=== PATIENT | male | born 1950 | race Caucasian/White ===

== ENCOUNTER 2016-10-27 10:08 | Inpatient (IN) | payer OTHER ==
[~2016-10-27] VITALS: Ht 177.8 cm; Wt 169.6 kg
[~2016-10-27 10:08] MED LIST: AMLODIPINE BESY10 M1 PO; AMLODIPINE BESYL5 M1 PO; ASPIRIN EC81 M1 PO; CARVEDILOL25 M1 PO; CEFUROXIME500 MG PO; FUROSEMIDE40 M1 PO; HYDRALAZINE HC100 M1 PO; HYDRALAZINE HCL25 M1 PO; KEPPRA1000 M1 PO; LASIX40 M1 PO; LISINOPRIL40 M1 PO; NITROGLYCERIN1 EACH TOP; PREDNISONE10 M2 PO; SIMVASTATIN20 M2 PO
--- NOTE | 2016-10-27 10:13 | ED DYSPNEA/ASTHMA COMPLAINT ---
History of Present Illness General Chief Complaint: Dyspnea (COPD, CHF, Other) Stated Complaint: BIBA SOB Source: patient, old records, EMS Exam Limitations: no limitations Allergies Coded Allergies: NO KNOWN ALLERGIES (06/26/16) Reconcile Medications Aspirin (Ecotrin*) 81 MG TABLET.DR 1 TAB PO DAILY HEART HEALTH (Reported) Furosemide 40 MG TABLET 1 TAB PO BID DIURETIC (Reported) Hydralazine HCl 25 MG TABLET 1 TAB PO TID Elevated BP Levetiracetam (Keppra) 1,000 MG TABLET 1 TAB PO BID Seizure Prophylaxis Please take this medication for seizure prophylaxis. You will need to follow up with the neurlogist regarding termite helper use of this medication. Lisinopril 40 MG TABLET 1 TAB PO DAILY HEART (Reported) Nitroglycerin (Nitroglycerin Patch) 1 EACH PATCH.TD24 0.4 MG TOP DAILY HEART (Reported) Potassium Chloride 20 MEQ TAB.ER.PRT 1 TAB PO BID SUPPLEMENT (Reported) Simvastatin (Simvastatin*) 20 MG TABLET 1 TAB PO QPM CHOLESTEROL (Reported) Triage Nurses Notes Reviewed? yes Onset: Abrupt Duration: day(s): (3), constant, getting worse Timing: recent history Severity: moderate, severe Activities at Onset: none Prior Episodes/Possible Cause: frequent episodes, chronic episodes Modifying Factors: Improves With: rest. Worsens With: movement. Associated Symptoms: cough, wheezing, weakness HPI: 66-year-old male with history of CHF, previous history of respiratory failure cardiac arrest 4 months ago seizures presents emergency room brought in by ambulance after the patient was found by his aide to have low O2 sats in the 60s on room air. The patient is not on oxygen at baseline. He states over the past 2-3 days he's had increased weakness shortness of breath at rest nonproductive cough. Patient also reports to bloating in his abdomen and urinary retention. He denies chest pain palpitations dizziness lightheadedness. He has not sought care for the symptoms until today. He has been compliant with all his medications. No fever no chills. He states that his leg swelling is chronic (ANG MACHADO) Vital Signs & Intake/Output Vital Signs & Intake/Output Vital Signs Date Time Temp Pulse Resp B/P Pulse O2 O2 Flow FiO2 Ox Delivery Rate 10/27 1441 96.2 45 26 171/72 98 BIPAP 60% 10/27 1405 70 100 10/27 1351 96.8 46 20 159/72 99 BIPAP 60% 10/27 1259 96.7 40 23 146/66 99 BIPAP 70% 10/27 1151 36 22 183/79 97 BIPAP 70% 10/27 1123 99 Non ReBreather 10/27 1122 60 99 10/27 1112 41 25 179/81 100 Non 100% ReBreather 10/27 1016 97.3 49 18 186/85 66 Room Air 10/27 1015 97 BIPAP 70% Past History Travel History Traveled to [place] past 21 day No Medical History Any Pertinent Medical History? 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 No (ANG MACHADO) Review of Systems Review of Systems Constitutional: Reports: see HPI. All Other Systems: Reviewed and Negative Comments Review of systems: See HPI, All other systems negative. Constitutional, no chills no fever, malaise HEENT:no sore throat no congestion Cardiovascular: No chest pain , no palpitation Skin,no rashes, no change in skin Respiratory: dyspnea no cough no sputum GI: No nausea no vomiting, no diarrhea : No dysuria No hematuria, no frequency, no discharge Muscle skeletal: No joint pain, no joint swelling, no back pain, no neck pain, Neurologic: No numbness no confusion, no headache Psych: No stress Heme/endocrine: No bruising no bleeding Immunology: No lymphadenopathy (ANG MACHADO) Physical Exam Physical Exam General Appearance: well developed/nourished, no apparent distress, alert, awake Respiratory: chest non-tender, quiet respiration, respiratory distress Comments: Well-developed well-nourished person in no acute distress HEENT: Normal EENT exam; PERRL, EOMI, HEAD is atraumatic. moist mucous membranes. Neck: Supple, normal range of motion Back: Nontender, no CVA tenderness. Full range of motion Cardiovascular: Regular rate and rhythms no murmurs rubs Respiratory: Chest nontender.There were no bony deformities, no asymmetry. Mild -to-moderate respiratory distress. Patient speaking in full complete sentences. Decreased breath sounds bilaterally rhonchorous lung sounds Abdomen: Soft, nontender nondistended, no appreciable organomegaly. Normal bowel sounds. No rebound/guarding, Extremity: Bilateral pitting 4+ edema to the lower extremities full range of motion of extremities, normal and equal pulses bilaterally, 5 out of 5 strength noted to bilateral upper and lower extremities Neuro: Alert oriented x3, motor sensory normal, . There were no obvious focal neurologic abnormalities. Skin: No appreciable rash on exposed skin, skin is warm and dry. Psych: Mood and affect is normal, memory and judgment is normal. Core Measures ACS in differential dx? Yes Severe Sepsis Present: No Septic Shock Present: No (ÓSCAR ALVAREZ,ANG) Progress Differential Diagnosis: asthma, AMI, bronchitis, costochondritis, CHF, COPD, pericarditis, pulmonary embolism, pneumonia, pneumothorax, unstable angina Diagnostic Imaging: Viewed by Me: Radiology Read. Discussed w/RAD: Radiology Read. Radiology Impression: PATIENT: PHONG BRIAN PRESENT AGE: 66 PATIENT ACCOUNT NO: [id number] : 51 LOCATION: [facility] ORDERING PHYSICIAN: ANG ALVAREZ SERVICE DATE: 10/27/16 EXAM TYPE: RAD - XRY-PORTABLE CHEST XRAY EXAMINATION: XR PORTABLE CHEST CLINICAL INFORMATION: Dyspnea. COMPARISON: CXR from 06/30/2016 and 07/04/2016 TECHNIQUE: Portable AP view of the chest was obtained. FINDINGS: Lung bases are poorly evaluated due to patient's obese body habitus. Lungs are slightly hypoinflated. The bibasilar opacity could reflect presence of atelectasis and/or infiltrates. Cardiac silhouette is chronically enlarged and central pulmonary vessels are prominent but similar in size compared to 06/30/2016. There is no overt interstitial edema. No overt pleural effusion. The visualized bones are intact. IMPRESSION: 1. Cardiomegaly and pulmonary vascular congestion without acute interstitial edema. 2. Lower lobes are suboptimally evaluated due to patient's obese body habitus. The hazy opacities at the bases could reflect presence of atelectasis and/or infiltrates. DICTATED BY: ELIJAH BUENO MD DATE/TIME DICTATED:10/27/161099 DIESEL ENGINE MECHANIC:ELIA DATE/TIME TRANSCRIBED:1099 CONFIDENTIAL, DO NOT COPY WITHOUT APPROPRIATE AUTHORIZATION. < Electronically signed in Other Vendor System> SIGNED BY: ELIJAH BUENO MD 10/27/16 1108 Initial ED EKG: SINUS BRADYCARDIA AT 50, LEFT BUNDLE BRANCH BLOCK, FIRST-DEGREE av BLOCK Prior EKG: unchanged (06/2016) Rhythm Strip: sinus bradycardia (ANG MACHADO) Plan of Care: Orders Procedure Date/time Status BASIC ELECTROLYTES PLUS BUN&CR 10/28 0600 Active EKG 10/28 UNK Active Heart Healthy Diet 10/27 L Active VRE ACTIVE SURVIELLANCE 10/27 1451 Active ACTIVE SURVEILLANCE NARES 10/27 1451 Active Pathway - chart 10/27 1446 Active Pathway - chart 10/27 1445 Active House Staff 10/27 1445 Active Code Status 10/27 1445 Active BIPAP 10/27 1405 Active Admit to inpatient 10/27 1318 Active Patient Data 10/[address] CHEST WO IV CONTRAST 10/27 1300 Active Intake & Output 10/27 1152 Active BIPAP 10/27 1121 Active Forte, Insertion/Removal/Asses 10/27 1109 Active CULTURE,URINE 10/27 1109 Active MIXED VENOUS BLOOD GAS (GEN) 10/27 1040 Complete PROTHROMBIN TIME 10/27 1028 Complete LACTIC ACID 10/27 1028 Complete Telemetry/Sanding Machine Tender 10/27 1027 Active BLOOD CULTURE 10/27 1027 Active TROPONIN LEVEL 10/27 1027 Complete MAGNESIUM 10/27 1027 Complete COMPREHENSIVE METABOLIC PANEL 10/27 1027 Complete CBC WITHOUT DIFFERENTIAL 10/27 1027 Complete B-TYPE NATRIURETIC PEP (BNP) 10/27 1027 Complete EKG 10/27 1010 Active TRC EVALUATION (GEN) 10/27 UNK Active Weight 10/27 UNK Active VTE Mechanical Prophylaxis 10/27 UNK Active Vital Signs 10/27 UNK Active EKG 10/27 UNK Active Current Medications Sig/Ji Start time Last Medication Dose Stop Time Status Admin Furosemide 40 MG BID 10/27 2200 CAN (Lasix) Heparin Sodium 5,000 UNIT Q8 10/27 2200 AC (Porcine) Acetaminophen 650 MG Q8P PRN 10/27 1500 AC (Tylenol) Laboratory Tests 10/27/16 1328: Lactic Acid Cancelled 10/27/16 1105: Lactic Acid 1.0 10/27/16 1105: Anion Gap 10, Estimated GFR > 60, BUN/Creatinine Ratio 35.6 H, Glucose 130 H, Calcium 8.6, Magnesium 2.6 H, Total Bilirubin 1.5 H, AST 35, ALT 56, Alkaline Phosphatase 55, Troponin I 0.12 *H, Ida-V-Trcekflvowj Pept 2860 H, Total Protein 8.0, Albumin 4.0, Globulin 4.0, Albumin/Globulin Ratio 1.0 L, PT 13.9 H, INR 1.33 H, CBC w Diff NO MAN DIFF REQ, RBC 5.35, MCV 94.1 H, MCH 30.8, RDW 17.0 H, MPV 9.5, Gran % 75.5 H, Lymphocytes % 14.3 L, Monocytes % 7.3, Eosinophils % 2.1, Basophils % 0.8, Absolute Granulocytes 7.2 H, Absolute Lymphocytes 1.4, Absolute Monocytes 0.7 H, Absolute Eosinophils 0.2, Absolute Basophils 0.1, PUBS MCHC 32.7 L 10/27/16 1050: Bicarbonate Actual 31 H, Mixed VBG pH 7.17 L, Mixed VBG pCO2 86 H, Mixed VBG O2 Saturation 31 L, Carboxyhemoglobin 2.6, O2 Concentration % 100%, O2 Delivery Method NRB, Phlebotomy Draw Site LEFT RADIAL Microbiology 10/27 1451 UPPER RESP: Surveillance Culture - ORD 10/27 1451 GI: Surveillance Culture - ORD 10/27 1151 URINE ROUT: Urine Culture - RECD 10/27 1105 BLOOD: Blood Culture - RECD 10/27 1040 BLOOD: Blood Culture - RECD Labs ordered old records reviewed x-ray ordered patient placed on nonrebreather DuoNeb ordered 10/27/2016 10:40:[address] Mane in to evaluate patient agrees with plan Patient saturating well improved on BiPAP, discussed with patient and his LAB results his troponin is baseline need for admission chair in agreement with Dr. 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 Mane spoke with Dr. ugarte will admit to the ICU (ANG MACHADO) Comments: 10/27/2016 11:48:24 AM Phong appears more comfortable and has a 99% oxygen saturation on a BiPAP mask. his chest excursion has improved. He already has a nitroglycerin patch in place and we treated with Lasix for congestive heart failure. Patient to be admitted to the intensive care unit given the acidosis on what appears to be a venous blood gas. (FIORELLA HENDRICKSON,SHANTANU Simmons) Departure Departure Condition: Stable Clinical Impression Primary Impression: Respiratory failure Qualifiers: Chronicity: acute on chronic Respiratory failure complication: hypoxia Qualified Code: J96.21 - Acute and chronic respiratory failure with hypoxia Secondary Impressions: Acute exacerbation of CHF (congestive heart failure), Elevated troponin Referrals: MINNA SAVAGE MD (PCP/Family) Departure Forms: Customer Survey General Discharge Information Admission Note Spoke With: Toby NARAYAN MD Documentation of Exam: Documentation of any treatments & extenuating circumstances including Concerns Regarding Discharge (functional status, medication knowledge or non-compliance, living conditions, etc.) that warrant an admission rather than observation: (AGN MACHADO) Departure Disposition: STILL A PATIENT Admission Note Documentation of Exam: Documentation of any treatments & extenuating circumstances including Concerns Regarding Discharge (functional status, medication knowledge or non-compliance, living conditions, etc.) that warrant an admission rather than observation: Patient presents hypoxic with worsening dyspnea. He now requires support with BiPAP and significant oxygen supplementation to maintain normal oxygen saturations. He is morbidly obese and has a history of congestive heart failure. This places him at very high risk of hypercapnic respiratory failure, somnolence, altered mental status, respiratory arrest and . I do not feel this patient can be treated as an outpatient safely and instead that he be treated in the hospital with continued BiPAP and oxygen supplementation. Continuous pulse oximetry should be obtained and oxygen and BiPAP adjusted accordingly. Pulmonary and cardiology consultation should be considered. Given this patient's critical condition and need for higher level care, I feel he should be admitted to the intensive care unit. Repeat ABG should be obtained for assessment of PaO2 and PCO2. Patient's medications should also be reviewed and adjusted to optimize medical management. I feel he will require a multiple day hospitalization. PA/DICTATING TRANSCRIBING MACHINE SERVICER Co-Sign Statement Statement: ED Attending supervision documentation- [X] I saw and evaluated the patient. I have also reviewed all the pertinent lab results and diagnostic results. I agree with the findings and the plan of care as documented in the PA's/DICTATING TRANSCRIBING MACHINE SERVICER's documentation. Dyspnea with history of CHF in June. No increase in leg edema recently. Presents hypoxic and requiring high flow oxygen to support normal O2 saturations. Chronic skin changes bilaterally to the lower extremities with 1-2+ pitting edema. [] I have reviewed the ED Record and agree with the PA's/DICTATING TRANSCRIBING MACHINE SERVICER's documentation. [] Additions or exceptions (if any) to the PAs/DICTATING TRANSCRIBING MACHINE SERVICER's note and plan are summarized below: [] (FIORELLA HENDRICKSON,SHANTANU Simmons) Critical Care Note Critical Care Note Critical Care Time: 30-74 min (ANG MACHADO)
--- NOTE | 2016-10-27 11:08 | RADIOLOGY REPORT ---
EXAMINATION: XR PORTABLE CHEST CLINICAL INFORMATION: Dyspnea. COMPARISON: CXR from 06/30/2016 and 07/04/2016 TECHNIQUE: Portable AP view of the chest was obtained. FINDINGS: Lung bases are poorly evaluated due to patient's obese body habitus. Lungs are slightly hypoinflated. The bibasilar opacity could reflect presence of atelectasis and/or infiltrates. Cardiac silhouette is chronically enlarged and central pulmonary vessels are prominent but similar in size compared to 06/30/2016. There is no overt interstitial edema. No overt pleural effusion. The visualized bones are intact. IMPRESSION: 1. Cardiomegaly and pulmonary vascular congestion without acute interstitial edema. 2. Lower lobes are suboptimally evaluated due to patient's obese body habitus. The hazy opacities at the bases could reflect presence of atelectasis and/or infiltrates.
[2016-10-27 11:17] LABS: ABSOLUTE BASOPHIL COUNT 0.1 /CUMM (0.0-0.2); ABSOLUTE EOSINOPHIL COUNT 0.2 /CUMM (0.0-0.7); ABSOLUTE GRANULOCYTE CT 7.2 /CUMM (1.4-6.5); ABSOLUTE LYMPH COUNT 1.4 /CUMM (1.2-3.4); ABSOLUTE MONOCYTE COUNT 0.7 /CUMM (0.10-0.60); BASOPHIL % 0.8 % (0.0-2.0); EOSINOPHIL % 2.1 % (0-5); GRANULOCYTE % 75.5 % (42.2-75.2); HEMATOCRIT 50.3 % (42-52); MEAN CORPUSCULAR HGB 30.8 PG (27.0-31.0); MEAN CORPUSCULAR HGB CONC 32.7 G/DL (33.0-37.0); MEAN CORPUSCULAR VOLUME 94.1 FL (80.0-94.0); MEAN PLATELET VOLUME 9.5 FL (7.4-10.4); PLATELET COUNT 141 /CUMM (130-400); RED BLOOD CELL CT 5.35 /CUMM (4.70-6.10); WHITE BLOOD CELL COUNT 9.5 /CUMM (4.8-10.8)
[2016-10-27 11:23] LABS: PT 13.9 SEC (9.4-12.5)
[2016-10-27] MEDS ORDERED: POTASSIUM CHLO20 ME2 PO (12:54)
--- NOTE | 2016-10-27 13:17 | History & Physical ---
CIPRIANO HENDRICKSON,[facility] 10/27/16 1317: General Information and HPI MD Statement: I have seen and personally examined LISA BRIAN and documented this H&P. The patient is a 66 year old M who presented with a patient stated chief complaint of [shortness of breath and low oxygen level]. Source of Information: patient, family History of Present Illness: Patient is a 66 year old gentleman with PMH of HTN, HLD, diastolic HF, COPD, DAGOBERTO , cardiac arrest during a recent admission at [facility] in Jun 2016, who was brought in to the ED after the patient was found to have 'blue fingers' and low oxygen levels by the visiting nurse. His reports that the patient has been having trouble breathing since yesterday and reports increased SOB on ambulation for a few days. Patient also has been unable to lay flat as it would increase SOB. Reports dizziness especially this morning. Denies any chest pain, palpitation, headache. Denies increase in lower extremity edema but reports skin tears that are new. Denies fever, chills, recent sick contacts, reports chronic coughing with white phlegm. Patient was admitted to in Jun 2016 with CHF exacerbation and hypercarbic respiratory failure. According to the records he had cardiac arrest during the admission and was resuscitated. Patient has been following up with Dr. Wakefield, he has completed a 24h holter monitor 4-5 days ago and is a candidate for a pacemaker. He has been bradycardic to 30-40 since the previous admission according to to his . She also reports he has DAGOBERTO and has done sleep studies recently and is waiting to receive his device. Allergies/Medications Allergies: Coded Allergies: NO KNOWN ALLERGIES (06/26/16) Home Med list Aspirin (Ecotrin*) 81 MG TABLET.DR 1 TAB PO DAILY HEART HEALTH (Reported) Furosemide 40 MG TABLET 1 TAB PO BID DIURETIC (Reported) Hydralazine HCl 25 MG TABLET 1 TAB PO TID Elevated BP Levetiracetam (Keppra) 1,000 MG TABLET 1 TAB PO BID Seizure Prophylaxis Please take this medication for seizure prophylaxis. You will need to follow up with the neurlogist regarding care home use of this medication. Lisinopril 40 MG TABLET 1 TAB PO DAILY HEART (Reported) Nitroglycerin (Nitroglycerin Patch) 1 EACH PATCH.TD24 0.4 MG TOP DAILY HEART (Reported) Potassium Chloride 20 MEQ TAB.ER.PRT 1 TAB PO BID SUPPLEMENT (Reported) Simvastatin (Simvastatin*) 20 MG TABLET 1 TAB PO QPM CHOLESTEROL (Reported) Past History Travel History Traveled to [place] past 21 day No Medical History Neurological: NONE EENT: NONE Cardiovascular: CHF, hypertension, hyperlipidemia Respiratory: NONE Gastrointestinal: NONE Hepatic: NONE Renal: NONE Musculoskeletal: BLISTERING WOUNDS BLE ARTHRITIS Psychiatric: NONE Endocrine: NONE Blood Disorders: NONE Cancer(s): NONE 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 Needs Assist: bathing. Ambulation: walker IADLs Independent: food prep. Needs Assist: shopping, housework, finances, telephone, transportation, medication admin. Review of Systems Review of Systems Constitutional: Reports: weakness. Denies: chills, fever. EENTM: Reports: no symptoms. Cardiovascular: Reports: peripheral edema. Denies: chest pain, palpitations, syncope. Respiratory: Reports: cough, orthopnea, short of breath, sputum production (white). Denies: hemoptysis. GI: Reports: constipation, diarrhea. Denies: abdominal pain. Genitourinary: Reports: no symptoms. Musculoskeletal: Reports: no symptoms. Skin: Reports: lesions. Neurological/Psychological: Reports: no symptoms. Hematologic/Endocrine: Reports: no symptoms. Exam & Diagnostic Data Last 24 Hrs of Vital Signs/I&O Vital Signs Date Time Temp Pulse Resp B/P Pulse O2 O2 Flow FiO2 Ox Delivery Rate 10/27 2141 97.8 51 31 153/67 10/27 1953 93 BIPAP 50% 10/27 1935 BIPAP 50% 10/27 1924 38 94 10/27 1744 42 146/69 10/27 1600 45 96 10/27 1600 97.0 45 36 172/80 96 BIPAP 50% 10/27 1600 96 BIPAP 60% 10/27 1441 96.2 45 26 171/72 98 BIPAP 60% 10/27 1405 70 100 10/27 1351 96.8 46 20 159/72 99 BIPAP 60% 10/27 1259 96.7 40 23 146/66 99 BIPAP 70% 10/27 1151 36 22 183/79 97 BIPAP 70% 10/27 1123 99 Non ReBreather 10/27 1122 60 99 10/27 1112 41 25 179/81 100 Non 100% ReBreather 10/27 1016 97.3 49 18 186/85 66 Room Air 10/27 1015 97 BIPAP 70% Intake & Output 10/27 1600 10/27 0800 10/27 0000 Intake Total Output Total 1200 Balance -1200 Output, Urine 1200 Patient 176.901 kg Weight Physical Exam General Appearance Alert, Oriented X3, Moderate Distress Skin skin hyperpigmentationand hyperkeratosis due to venous stasis on both lower legs with areas of skin tear (stage 1 - one small 0.5x0.5 on the posterior right lower leg, 2 larger areas of skin tear on the anterior left lower leg) HEENT Atraumatic, EOMI, Mucous Membr. moist/pink, on Bipap, erythema of the skin of the face Neck Supple Cardiovascular Regular Rate, No Murmurs, distant heart sounds Lungs decreased breath sounds, scattered rhonchi, no wheezing Abdomen Soft, No Tenderness, obese Neurological Normal Speech, Strength at 5/5 X4 Ext, Normal Tone Extremities 4+ pitting edema on lower extremities Vascular peripheral pulses hard to palpate due to obesity and 4+ lower extremity edema, capillary refill intact Last 24 Hrs of Labs/Heriberto: Laboratory Tests 10/27/16 1830: pH 7.30 *L, pCO2 60 *H, pO2 101 H, HCO3 28, ABG O2 Sat (Measured) 95.0 L, P-50 (Temp Corrected) N, Carboxyhemoglobin 1.5, O2 Concentration % 50%, Temperature 97.0, Respiration Rate 30, O2 Delivery Method FFM, Vent Mode ST, Expiratory Pressure 8, Inspiratory Pressure 22, Phlebotomy Draw Site RIGHT RADIAL 10/27/16 1800: Troponin I 0.12 *H 10/27/16 1635: pH 7.26 *L, pCO2 68 *H, pO2 86, HCO3 30 H, ABG O2 Sat (Measured) 93.0 L, P-50 (Temp Corrected) N, Carboxyhemoglobin 1.9, O2 Concentration % 50%, Temperature 97.0, Respiration Rate 26, O2 Delivery Method FFM, Vent Mode ST, Expiratory Pressure 8, Inspiratory Pressure 20, Phlebotomy Draw Site RIGHT BRACHIAL 10/27/16 1328: Lactic Acid Cancelled 10/27/16 1105: Lactic Acid 1.0 10/27/16 1105: Anion Gap 10, Estimated GFR > 60, BUN/Creatinine Ratio 35.6 H, Glucose 130 H, Calcium 8.6, Magnesium 2.6 H, Total Bilirubin 1.5 H, AST 35, ALT 56, Alkaline Phosphatase 55, Troponin I 0.12 *H, Pmb-H-Hwvkkozcsih Pept 2860 H, Total Protein 8.0, Albumin 4.0, Globulin 4.0, Albumin/Globulin Ratio 1.0 L, PT 13.9 H, INR 1.33 H, CBC w Diff NO MAN DIFF REQ, RBC 5.35, MCV 94.1 H, MCH 30.8, RDW 17.0 H, MPV 9.5, Gran % 75.5 H, Lymphocytes % 14.3 L, Monocytes % 7.3, Eosinophils % 2.1, Basophils % 0.8, Absolute Granulocytes 7.2 H, Absolute Lymphocytes 1.4, Absolute Monocytes 0.7 H, Absolute Eosinophils 0.2, Absolute Basophils 0.1, PUBS MCHC 32.7 L 10/27/16 1050: Bicarbonate Actual 31 H, Mixed VBG pH 7.17 L, Mixed VBG pCO2 86 H, Mixed VBG O2 Saturation 31 L, Carboxyhemoglobin 2.6, O2 Concentration % 100%, O2 Delivery Method NRB, Phlebotomy Draw Site LEFT RADIAL Microbiology 10/27 1550 GI: Surveillance Culture - RECD 10/27 1545 UPPER RESP: Surveillance Culture - RECD 10/27 1151 URINE ROUT: Urine Culture - RECD 10/27 1105 BLOOD: Blood Culture - RECD 10/27 1040 BLOOD: Blood Culture - RECD Diagnostic Data EKG Results complete heart block CXR Results SERVICE DATE: 10/27/16 EXAM TYPE: RAD - XRY-PORTABLE CHEST XRAY EXAMINATION: XR PORTABLE CHEST CLINICAL INFORMATION: Dyspnea. COMPARISON: CXR from 06/30/2016 and 07/04/2016 TECHNIQUE: Portable AP view of the chest was obtained. FINDINGS: Lung bases are poorly evaluated due to patient's obese body habitus. Lungs are slightly hypoinflated. The bibasilar opacity could reflect presence of atelectasis and/or infiltrates. Cardiac silhouette is chronically enlarged and central pulmonary vessels are prominent but similar in size compared to 06/30/2016. There is no overt interstitial edema. No overt pleural effusion. The visualized bones are intact. IMPRESSION: 1. Cardiomegaly and pulmonary vascular congestion without acute interstitial edema. 2. Lower lobes are suboptimally evaluated due to patient's obese body habitus. The hazy opacities at the bases could reflect presence of atelectasis and/or infiltrates. DICTATED BY: ELIJAH BUENO MD DATE/TIME DICTATED:10/27/161099 SANDFILL OPERATOR:ELIA DATE/TIME TRANSCRIBED:10/27/161099 Other Results SERVICE DATE: 10/27/16 EXAM TYPE: CAT - CT CHEST WO IV CONTRAST EXAMINATION: CT CHEST WITHOUT CONTRAST CLINICAL INFORMATION: Dyspnea. COMPARISON: Chest CT from 06/26/2016. CXR from 10/27/2016. TECHNIQUE: Multidetector volumetric CT imaging of the chest was performed. Axial MIP volume rendering provided. Sagittal and coronal reformatted images were obtained. 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 LUNGS AND PLEURA: Trachea and mainstem bronchi are normal in caliber. There are secretions layering along the posterior wall of the left mainstem bronchus. The pulmonary vessels are large and lungs have mosaic attenuation with heterogeneous groundglass opacity of both lungs. Interlobular septal thickening is present within upper lobes, most conspicuous at the apices, consistent with interstitial edema. There are goeuo-pt-vmuiexhz-sized, posteriorly layering pleural effusions. Compressive atelectasis is present within lower lobes and inferior lingula. MEDIASTINUM: Multichamber cardiac enlargement. Vrnb-xx-kzplsmiz atherosclerotic calcification of coronary arteries. Pulmonary arteries are prominent; the pulmonary artery trunk is 3.6 cm diameter. There is mild atherosclerotic calcification of the thoracic aorta. At the level of the right pulmonary artery, the dilated ascending thoracic aorta is 4.2 cm AP, 4.1 cm transverse diameter. No pericardial effusion. LYMPHATICS: No pathologic sized axillary lymph nodes. No bulky hilar lymphadenopathy observed on these noncontrast images. There is mild, shotty lymphadenopathy within the mediastinum. UPPER ABDOMEN: Gallbladder is surgically absent. The examined portions of the adrenal glands are normal. OSSEOUS STRUCTURES: Skeletal hyperostosis with extensive flowing anterior ligament ossification of the degenerated thoracic spine. No aggressive osseous lesions. IMPRESSION: 1. Congestive heart failure. Imaging findings include cardiomegaly, pulmonary vascular engorgement, interstitial edema and bilateral pleural effusions. 2. Compressive atelectasis of both lower lobes. 3. The ectatic ascending thoracic aorta measures 4.2 cm AP diameter. 4. Obesity. DICTATED BY: ELIJAH BUENO MD DATE/TIME DICTATED:10/27/161529 SANDFILL OPERATOR:ELIA Assessment/Plan Assessment: Patient is a 66 year old gentleman with PMH of HTN, HLD, diastolic HF, COPD, DAGOBERTO , cardiac arrest during a recent admission at [facility] in Jun 2016, who was brought in to the ED due to hypoxia, cyanosis, 2 days of SOB at rest and orthopnea. Patient is also bradycardic since the previous admission in June and is supposed to have a pacemaker placed. Problem list and plan: Acute hypoxic hypercarbic respiratory failure Patient has history of COPD, cough with phlegm, does not report increased coughing and change in the color of the sputum. exam reveals rhonchi, no wheezing. other possibility is CHF exacerbation. ProBNP elevated (although relatively lower than the previous measurement in June), also reports orthopnea, worsening SOB and increased LE edema and skin tear. ABG shows hypercarbia, respiratory acidosis CXR: hazy opacities at the bases of the lungs - may be due to pneumonia * ICU admit * monitor Vital signs and O2 suppl as needed to keep SO2>92% (currently requiring Bipap) * on Bipap, O2 suppl to keep SO2>92% * lasix 40 mg IV BID * IV vancomycin and ceftazidime * lower respiratory cultures * repeat ABG tonight Complete heart block EKG shows LBBB and Complete heart block * patient is a candidate for a pacemaker * will be kept on monitor and recommend to keep pads on the chest and defibrillator at bedside * consider atropine at bedside History of HTN, HLD, seizure disorder * continue home medications : keppra, statin, lisinopril Diet heart healthy diet DVT px heparin SC FULL CODE As Ranked By This Provider Problem List: 1. Elevated troponin 2. Acute exacerbation of CHF (congestive heart failure) 3. Respiratory failure Qualifiers Chronicity: acute on chronic Respiratory failure complication: hypoxia Qualified Code: J96.21 - Acute and chronic respiratory failure with hypoxia 4. COPD (chronic obstructive pulmonary disease) 5. Venous stasis ulcers 6. Diastolic heart failure Core Measures/Miscellaneous Acute Coronary Syndrome ACS Diagnosis: No Cerebrovascular Accident CVA/TIA Diagnosis: No Congestive Heart Failure CHF Diagnosis: Yes Date of most recent Echo: 06/28/16 Last Known EF %: 55 MARGARITO/ARB for EF <40%: Yes Venous Thromboembolism VTE Risk Factors: Acute medical illness, Age > 40 [facility] prophylaxis d/t: No contraindications No VTE Pharm Prophylaxis d/t: No contraindications VTE Diagnosis: No VTE Type: NONE VTE Confirmed by (Test): NONE Severe Sepsis Severe Sepsis Present: No Septic Shock Septic Shock Present: No Miscellaneous Documentation Attending Case Discussed With: Toby NARAYAN MD Primary Care Physician: MINNA SAVAGE MD Patient sees these Specialists Dr. Twyla Suazo Level of Patient Care: Critical Care (CRI) Toby NARAYAN MD 10/27/16 1454: Attending MD Review Statement Attending Statement Attending MD Statement: examined this patient, discuss w/resident/PA/BAD CREDIT COLLECTOR, agreed w/resident/PA/BAD CREDIT COLLECTOR, discussed with family, reviewed EMR data (avail), reviewed images, amended to note Attending Assessment/Plan: I have personally seen and examined the patient, and agree with the resident's assessment and plan as detailed above. The patient is a 66-year-old male with a past medical history significant for copd, bradycardia (awaiting PPM per patient 's ), hypertension, diastolic CHF, hyperlipidemia, osteoarthritis, obesity hypoventilation and obstructive sleep apnea. He has chronic lower extremity edema, ulcerations on lower extremities and chronic venous stasis. The patient also had an episode of seizures and respiratory failure in June, complicated by cardiac arrest requiring intubation and mechanical ventilation. The patient eventually improved and was transferred to acute rehabilitation. The patient was brought in by ambulance for hypoxia, noting the patient's oxygen saturations were in the 60s on room air. Over the past 2-3 days, the patient has had increased weakness and shortness of breath along with a nonproductive cough. He has had ongoing abdominal bloating with new urinary retention. The patient was found to be in respiratory failure and was placed on BIPAP. The patient had a chest x-ray that was nonspecific. He was given nitroglycerin and Lasix for possible CHF. He has been pancultured and will be placed on empiric antibiotics. The patient has been evaluated by cardiology and we will follow up the recommendations. The patient's total bilirubin was slightly elevated however he has no abdominal pain and we will not pursue further workup unless his clinical symptoms change. A CT scan of the chest has been ordered for further closer evaluation. I have discussed the plan of care with the housestaff and advised him to contact me should the patient's condition change or deteriorate. I've also discussed patient's condition and plan with his at the bedside. CASTILLO TIERNEY 10/27/16 1536: Resident Review Statement Resident Statement: agreed with accounting intern, discussed with family Other Findings: In an 66-year-old male with past medical history of HTN, stage I diastolic CHF, HDL, osteoarthritis came with a chief complaint of difficulty breathing. Per 5 present at bedside, patient has been increasingly short of breath, he wasn't able to sleep last night at all. He normally sleeps in the chair. Patient had a sleep study done 2 weeks ago and was working with insurance to get a BiPAP machine at home. This morning when the visiting nurse came, patient was desaturating to 60% and she noticed that his fingertips were little cyanosed. Patient came into ER. In ER VBG showed a pH of 7.1. Patient had no leukocytosis on admission. She has been afebrile. Patient is on 60% BiPAP in ER. Patient also had elevated troponins of 0.12 but does not complain of any chest pressure/pain or palpitations. Vitals stable in ER Respiratory sounds difficult to elicit due to body habitus. Assessment and plan We'll admit to critical care unit Will obtain the results of CAT scan to look for possible pneumonia TRC nebs as needed Start the patient on ceftazidime and vancomycin after panculture Troponins are elevated, will trend until they peak, follow-up EKG and troponin at 5 PM and 11 PM Cardiology consult service, Dr. Silva on board Pain pathway Tylenol every 8 when necessary DVT prophylaxis subcutaneous heparin Patient is full code
--- NOTE | 2016-10-27 13:36 | Cons- Cardiology ---
General Information and HPI Consulting Request Date of Consult: 10/27/16 Requested By: etienne ALVAREZ Reason for Consult: CHF; Bradycardia Source of Information: family, old records History of Present Illness: The patient is a 66 year old male who is followed by Dr. 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 His past history is remarkable for HFpEF, COPD, DAGOBERTO, a possible cardiac arrest, etc. He comes to the ER today with increased respiratory distress and hypoxemia. He has been waiting for a home CPAP machine for his DAGOBERTO. NO other cardiac symptoms noted. As per the patient's , he just had a Holter performed but the results are not yet available. CXR consistent with worsening pulmonary vascular congestion. Allergies/Medications Allergies: Coded Allergies: NO KNOWN ALLERGIES (06/26/16) Home Med List: Aspirin (Ecotrin*) 81 MG TABLET.DR 1 TAB PO DAILY HEART HEALTH (Reported) Furosemide 40 MG TABLET 1 TAB PO BID DIURETIC (Reported) Hydralazine HCl 25 MG TABLET 1 TAB PO TID Elevated BP Levetiracetam (Keppra) 1,000 MG TABLET 1 TAB PO BID Seizure Prophylaxis Please take this medication for seizure prophylaxis. You will need to follow up with the neurlogist regarding terminal carman use of this medication. Lisinopril 40 MG TABLET 1 TAB PO DAILY HEART (Reported) Nitroglycerin (Nitroglycerin Patch) 1 EACH PATCH.TD24 0.4 MG TOP DAILY HEART (Reported) Potassium Chloride 20 MEQ TAB.ER.PRT 1 TAB PO BID SUPPLEMENT (Reported) Simvastatin (Simvastatin*) 20 MG TABLET 1 TAB PO QPM CHOLESTEROL (Reported) Current Medications: Current Medications Sig/Ji Start time Last Medication Dose Route Stop Time Status Admin Albuterol Sulfate 3 ML ONCE ONE 10/27 1030 DC 10/27 INH 10/27 1031 1035 Furosemide 0 .STK-MED ONE 10/27 1136 DC IV Furosemide 40 MG ONCE ONE 10/27 1115 DC 10/27 IV 10/27 1116 1145 Ipratropium [place] 2.5 ML ONCE ONE 10/27 1030 DC 10/27 INH 10/27 1031 1035 Past History Travel History Traveled to [place] past 21 day No Medical History Neurological: NONE EENT: NONE Cardiovascular: CHF, hypertension, hyperlipidemia Respiratory: NONE Gastrointestinal: NONE Hepatic: NONE Renal: NONE Musculoskeletal: BLISTERING WOUNDS BLE ARTHRITIS Psychiatric: NONE Endocrine: NONE Blood Disorders: NONE Cancer(s): NONE 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 No Doppler available.Normal size left ventricle. Mild to moderate concentric left ventricular hypertrophy. Extremely limited LV views available even with Definity contrast enhancement. LV contractility appears mildly depressed with no obvious regional wall motion abnormalities. Estimated LVEF by Aquino's formula is 50-55%. All views are not avalaible. Left atrium not well visualized. Aortic valve not well visualized. There is calcification of the mitral annulus. No Doppler data Mildly dilated ascending aorta. Dilated IVC. Exam & Diagnostic Data Vital Signs and I&O Vital Signs Date Time Temp Pulse Resp B/P Pulse O2 O2 Flow FiO2 Ox Delivery Rate 10/27 1259 96.7 40 23 146/66 99 BIPAP 70% 10/27 1151 36 22 183/79 97 BIPAP 70% 10/27 1123 99 Non ReBreather 10/27 1122 60 99 10/27 1112 41 25 179/81 100 Non 100% ReBreather 10/27 1016 97.3 49 18 186/85 66 Room Air 10/27 1015 97 BIPAP 70% Intake & Output 10/27 1600 10/27 0800 10/27 0000 10/26 1600 10/26 0800 10/26 0000 Intake Total Output Total 900 Balance -900 Output, Urine 900 Patient 390 lb Weight Labs/Heriberto Results: Laboratory Tests 10/27 10/27 10/27 1328 1105 1105 Chemistry Sodium (137 - 145 mmol/L) 143 Potassium (3.5 - 5.1 mmol/L) 5.1 Chloride (98 - 107 mmol/L) 105 Carbon Dioxide (22 - 30 mmol/L) 28 Anion Gap (5 - 16) 10 BUN (9 - 20 mg/dL) 32 H Creatinine (0.7 - 1.2 mg/dL) 0.9 Estimated GFR (>60 ml/min) > 60 BUN/Creatinine Ratio (7 - 25 %) 35.6 H Glucose (65 - 99 mg/dL) 130 H Lactic Acid (0.7 - 2.1 mmol/L) Cancelled 1.0 Calcium (8.4 - 10.2 mg/dL) 8.6 Magnesium (1.6 - 2.3 mg/dL) 2.6 H Total Bilirubin (0.2 - 1.3 mg/dL) 1.5 H AST (17 - 59 U/L) 35 ALT (21 - 72 U/L) 56 Alkaline Phosphatase (< 127 U/L) 55 Troponin I (<0.11 ng/ml) 0.12 *H Ooq-O-Nzrqftzwmvn Pept (<125 pg/mL) 2860 H Total Protein (6.3 - 8.2 g/dL) 8.0 Albumin (3.5 - 5.0 g/dL) 4.0 Globulin (1.9 - 4.2 gm/dL) 4.0 Albumin/Globulin Ratio (1.1 - 2.2 %) 1.0 L Coagulation PT (9.4 - 12.5 SEC) 13.9 H INR (0.90 - 1.17) 1.33 H Hematology CBC w Diff NO MAN DIFF REQ WBC (4.8 - 10.8 /CUMM) 9.5 RBC (4.70 - 6.10 /CUMM) 5.35 Hgb (14.0 - 18.0 G/DL) 16.5 Hct (42 - 52 %) 50.3 MCV (80.0 - 94.0 FL) 94.1 H MCH (27.0 - 31.0 PG) 30.8 RDW (11.5 - 14.5 %) 17.0 H Plt Count (130 - 400 /CUMM) 141 MPV (7.4 - 10.4 FL) 9.5 Gran % (42.2 - 75.2 %) 75.5 H Lymphocytes % (20.5 - 51.1 %) 14.3 L Monocytes % (1.7 - 9.3 %) 7.3 Eosinophils % (0 - 5 %) 2.1 Basophils % (0.0 - 2.0 %) 0.8 Absolute Granulocytes (1.4 - 6.5 /CUMM) 7.2 H Absolute Lymphocytes (1.2 - 3.4 /CUMM) 1.4 Absolute Monocytes (0.10 - 0.60 /CUMM) 0.7 H Absolute Eosinophils (0.0 - 0.7 /CUMM) 0.2 Absolute Basophils (0.0 - 0.2 /CUMM) 0.1 PUBS MCHC (33.0 - 37.0 G/DL) 32.7 L 04/14 1050 Blood Gas Bicarbonate Actual (22 - 26 MEQ/L) 31 H Mixed VBG pH (7.31 - 7.41 PH) 7.17 L Mixed VBG pCO2 (41 - 51 TORR) 86 H Mixed VBG O2 Saturation (35 - 45 TORR) 31 L Carboxyhemoglobin (1.5 - 5.0 %) 2.6 O2 Concentration % 100% O2 Delivery Method NRB Miscellaneous Phlebotomy Draw Site LEFT RADIAL Diagnostic Data CXR Results IMPRESSION: 1. Cardiomegaly and pulmonary vascular congestion without acute interstitial edema. 2. Lower lobes are suboptimally evaluated due to patient's obese body habitus. The hazy opacities at the bases could reflect presence of atelectasis and/or infiltrates. Assessment/Plan Assessment/Plan Assessment: 1. Probable acute on chronic HFpEF 2. Minimally elevated troponin 3. Obstructive sleep apnea 4. Obesity 5. Venous insufficiency with lower extremity edema 6. Hypertension 7. Hyperlipidemia Recommendations: -Admission as outlined -And troponin until decreasing -ECG tonight and again in 24 hours -Continue respiratory management as per the pulmonary service -No need to repeat echocardiogram at the present time. -Continue IV Lasix twice a day with close monitoring of intakes, outputs, and daily weights. -Consider non contrast chest CT as per Pulmonary Consult Acknowledgment - Thank you for your consult request.
--- NOTE | 2016-10-27 15:45 | CT SCAN REPORT ---
EXAMINATION: CT CHEST WITHOUT CONTRAST CLINICAL INFORMATION: Dyspnea. COMPARISON: Chest CT from 06/26/2016. CXR from 10/27/2016. TECHNIQUE: Multidetector volumetric CT imaging of the chest was performed. Axial MIP volume rendering provided. Sagittal and coronal reformatted images were obtained. 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 LUNGS AND PLEURA: Trachea and mainstem bronchi are normal in caliber. There are secretions layering along the posterior wall of the left mainstem bronchus. The pulmonary vessels are large and lungs have mosaic attenuation with heterogeneous groundglass opacity of both lungs. Interlobular septal thickening is present within upper lobes, most conspicuous at the apices, consistent with interstitial edema. There are exbrb-xd-bzpamnhp-sized, posteriorly layering pleural effusions. Compressive atelectasis is present within lower lobes and inferior lingula. MEDIASTINUM: Multichamber cardiac enlargement. Fjqd-ih-pzlbebmj atherosclerotic calcification of coronary arteries. Pulmonary arteries are prominent; the pulmonary artery trunk is 3.6 cm diameter. There is mild atherosclerotic calcification of the thoracic aorta. At the level of the right pulmonary artery, the dilated ascending thoracic aorta is 4.2 cm AP, 4.1 cm transverse diameter. No pericardial effusion. LYMPHATICS: No pathologic sized axillary lymph nodes. No bulky hilar lymphadenopathy observed on these noncontrast images. There is mild, shotty lymphadenopathy within the mediastinum. UPPER ABDOMEN: Gallbladder is surgically absent. The examined portions of the adrenal glands are normal. OSSEOUS STRUCTURES: Skeletal hyperostosis with extensive flowing anterior ligament ossification of the degenerated thoracic spine. No aggressive osseous lesions. IMPRESSION: 1. Congestive heart failure. Imaging findings include cardiomegaly, pulmonary vascular engorgement, interstitial edema and bilateral pleural effusions. 2. Compressive atelectasis of both lower lobes. 3. The ectatic ascending thoracic aorta measures 4.2 cm AP diameter. 4. Obesity.
[2016-10-27 16:00] VITALS: BP 172/80
[2016-10-28 05:39] LABS: ABSOLUTE BASOPHIL COUNT 0 /CUMM (0.0-0.2); ABSOLUTE EOSINOPHIL COUNT 0.2 /CUMM (0.0-0.7); ABSOLUTE GRANULOCYTE CT 7.7 /CUMM (1.4-6.5); ABSOLUTE LYMPH COUNT 1.1 /CUMM (1.2-3.4); BASOPHIL % 0.1 % (0.0-2.0); EOSINOPHIL % 1.8 % (0-5); GRANULOCYTE % 77.4 % (42.2-75.2); MEAN CORPUSCULAR HGB 30.4 PG (27.0-31.0); MEAN PLATELET VOLUME 9.8 FL (7.4-10.4); PLATELET COUNT 139 /CUMM (130-400); RBC DISTRIBUTION WIDTH 17.3 % (11.5-14.5); RED BLOOD CELL CT 4.77 /CUMM (4.70-6.10)
[2016-10-28 05:45] LABS: HEMATOCRIT 45.3 % (42-52)
[2016-10-28 08:00] VITALS: BP 158/80
--- NOTE | 2016-10-28 09:24 | PN- Resident CRCU ---
Subjective HPI/CRCU Issues: Mr. Weaver was seen and examined this morning. He is resting comfortably in bed. He is currently on BiPAP. Patient states that he does feel better than compared to the time of admission. He denies any shortness of breath, chest pain, chest discomfort or any dyspnea. Patient states he was able to get some rest overnight. Patient denies any lightheadedness or chest discomfort. Patient denies any fever, chills, nausea, vomiting. Objective Vital Signs & I&O Last 8 Hrs of Vitals and I&O: HR: 40-48 1 deg AVB T: 97.0-98.7 RR:30-36 BP: 177/79-118/70 Forte Output: 30ml/hr - 400 ml/hr Exam General Appearance: alert, awake, mild distress, obese Head: atraumatic, normal appearance Cardiovascular: regular rate/rhythm Gastrointestinal: normal bowel sounds, soft, non-tender Current Medications: Current Medications Sig/Ji Start time Last Medication Dose Route Stop Time Status Admin Acetaminophen 650 MG Q8P PRN 10/27 1500 AC PO Albuterol Sulfate 3 ML Q4P PRN 10/27 1945 AC INH Aspirin Buffered 81 MG DAILY 10/28 1000 AC 10/28 PO 1038 Atorvastatin Calcium 20 MG 1700 10/27 1700 AC PO Atropine Sulfate 1 MG .STK-MED ONE 10/27 1713 DC IM 10/27 1714 Ceftazidime 1,000 MG Q12 10/27 1532 DC 10/28 IV 1038 Furosemide 40 MG BID 10/27 220 CAN IV Furosemide 40 MG 7:30 AM, & 4:30 PM 10/27 1900 AC 10/28 IV 0652 Heparin Sodium 5,000 UNIT Q8 10/27 2200 AC 10/28 (Porcine) SC 0653 Hydralazine HCl 25 MG TID 10/27 1600 AC 10/28 PO 1038 Levetiracetam 1,000 MG BID 10/27 2200 DC PO Levetiracetam 1,000 MG Q12 10/27 2200 AC 10/28 N/A 1 UNIT IV 1038 Lisinopril 40 MG DAILY 10/27 1600 AC 10/28 PO 1039 Nitroglycerin 0.4 MG DAILY 10/27 1548 AC 10/28 TOP 1039 Nystatin 1 SAM BID 10/27 2200 AC 04/15 TOP 1038 Nystatin 1 SAM BID 10/27 2199 CAN TOP Patient Medication 1 UNIT ONE NR 10/27 1900 DC Teaching ED 10/27 1930 Potassium Chloride 20 MEQ BID 10/27 2199 AC 10/28 PO 1038 Vancomycin HCl 1,000 MG DAILY 10/27 1532 DC 10/28 Sodium Chloride 250 ML IV 1040 Impression/Plan Impression/Problem List Impression: Mr Weaver is a 66 year old gentleman with PMH of HTN, HLD, diastolic HF, COPD , DAGOBERTO, cardiac arrest during a recent admission at [facility] in Jun 2016, who was brought in to the ED due to hypoxia, cyanosis, 2 days of SOB at rest and orthopnea. Patient is was also bradycardic since the previous admission in June and is supposed to have a pacemaker placed. Problem list and plan: Acute hypoxic hypercarbic respiratory failure Patient has history of COPD, cough with phlegm, does not report increased coughing and change in the color of the sputum. exam reveals rhonchi, no wheezing. other possibility is CHF exacerbation. ProBNP elevated (although relatively lower than the previous measurement in June), also reports orthopnea, worsening SOB and increased LE edema and skin tear. ABG showed hypercarbia, respiratory acidosis CXR: hazy opacities at the bases of the lungs * ICU admit * monitor Vital signs and O2 suppl as needed to keep SO2>92% (currently requiring Bipap) * on Bipap, O2 suppl to keep SO2>92% * lasix 40 mg IV BID * IV vancomycin and ceftazidime--> Discontinued * lower respiratory cultures Complete heart block EKG showed LBBB and Complete heart block * patient is a candidate for a pacemaker, catherine to be placed on Sunday * will be kept on monitor and recommend to keep pads on the chest and defibrillator at bedside, monitor * consider atropine at bedside History of HTN, HLD, seizure disorder * continue home medications : Keppra 1000 mg Q12 IV, consider neurology consultation in on 10/30/2016. Contiinue statin, lisinopril, Nitrogycerine Diet heart healthy diet DVT px heparin SC FULL CODE Problem List: 1. Elevated troponin 2. Acute exacerbation of CHF (congestive heart failure) 3. Diastolic heart failure 4. Obesity hypoventilation syndrome 5. Dependent on ventilator 6. Hypoxia Pain Ratin Tomorrow's Labs & Rationales: CBC ICU Bundle Plan DVT/Prophylaxis: pharmacological
--- NOTE | 2016-10-28 10:17 | PN- Pulmonary ---
Subjective HPI/Critical Care Issues: Patient is awake alert comfortable on BiPAP he continues to diurese effectively Objective Current Medications: Current Medications Sig/Ji Start time Last Medication Dose Route Stop Time Status Admin Acetaminophen 650 MG Q8P PRN 10/27 1500 AC PO Albuterol Sulfate 3 ML Q4P PRN 10/27 1945 AC INH Albuterol Sulfate 3 ML ONCE ONE 10/27 1030 DC 10/27 INH 10/27 1031 1035 Aspirin Buffered 81 MG DAILY 10/28 1000 AC PO Atorvastatin Calcium 20 MG 1700 10/27 1700 AC PO Atropine Sulfate 1 MG .STK-MED ONE 10/27 1713 DC IM 10/27 1714 Ceftazidime 1,000 MG Q12 10/27 1532 AC 10/27 IV 1816 Furosemide 40 MG BID 10/27 2200 CAN IV Furosemide 40 MG 7:30 AM, & 4:30 PM 10/27 1900 AC 10/28 IV 0652 Furosemide 0 .STK-MED ONE 10/27 1136 DC IV Furosemide 40 MG ONCE ONE 10/27 1115 DC 10/27 IV 10/27 1116 1145 Heparin Sodium 5,000 UNIT Q8 10/27 2200 AC 10/28 (Porcine) SC 0653 Hydralazine HCl 25 MG TID 10/27 1600 AC PO Ipratropium [place] 2.5 ML ONCE ONE 10/27 1030 DC 10/27 INH 10/27 1031 1035 Levetiracetam 1,000 MG BID 10/27 2200 DC PO Levetiracetam 1,000 MG Q12 10/27 2200 AC 10/27 N/A 1 UNIT IV 2137 Lisinopril 40 MG DAILY 10/27 1600 AC PO Nitroglycerin 0.4 MG DAILY 10/27 1548 AC 10/27 TOP 1743 Nystatin 1 SAM BID 10/27 2200 AC 10/27 TOP 2137 Nystatin 1 SAM BID 10/27 2200 CAN TOP Patient Medication 1 UNIT ONE NR 10/27 1900 DC Teaching ED 10/27 1930 Potassium Chloride 20 MEQ BID 10/27 2200 AC PO Vancomycin HCl 1,000 MG DAILY 10/27 1532 AC 10/27 Sodium Chloride 250 ML IV 1817 Vital Signs & I&O Last 24 Hrs of Vitals and I&O: Vital Signs Date Time Temp Pulse Resp B/P Pulse O2 O2 Flow FiO2 Ox Delivery Rate 10/28 0824 43 94 10/28 0608 41 97 10/28 0400 98 BIPAP 45% 10/28 0326 44 98 10/28 0027 42 95 10/28 0000 94 BIPAP 45% 10/27 2225 44 95 10/27 2142 97.8 51 31 153/67 10/27 1954 93 BIPAP 50% 10/27 1935 BIPAP 50% 10/27 1924 38 94 10/27 1744 42 146/69 10/27 1600 45 96 10/27 1600 97.0 45 36 172/80 96 BIPAP 50% 10/27 1600 96 BIPAP 60% 10/27 1441 96.2 45 26 171/72 98 BIPAP 60% 10/27 1405 70 100 10/27 1351 96.8 46 20 159/72 99 BIPAP 60% 10/27 1259 96.7 40 23 146/66 99 BIPAP 70% 10/27 1151 36 22 183/79 97 BIPAP 70% 10/27 1123 99 Non ReBreather 10/27 1122 60 99 10/27 1112 41 25 179/81 100 Non 100% ReBreather 10/27 1016 97.3 49 18 186/85 66 Room Air Intake & Output 10/28 1600 10/28 0800 10/28 0000 Intake Total 1033 370 Output Total 1205 1730 Balance -172 -1360 Intake, IV 33 370 Intake, Oral 1000 Output, Urine 1205 1730 Patient 393 lb 397 lb Weight Oxygen saturation 45% is 95% exam of his chest shows diminished breath sounds there are no wheezes cardiac exam shows regular S1 and S2 without murmurs him is soft nontender he has lower extremity edema Impression/Plan Impression/Plan Impression/Plan: CC 6-year-old gentleman admitted with hypercapnic respiratory failure secondary to congestive heart failure. c T scan shows congestive heart failure without evidence of pneumonia his white count is normal without left shift. Hypercarbia is improved with diuresis and Recommendations: .. Taper FiO2 his saturations allow trial off BiPAP continue negative fluid balance. Consider r DC antibiotics with no evidence of pneumonia. DVT prophylaxis
--- NOTE | 2016-10-28 14:29 | PN- Cardiology ---
Subjective Subjective: The patient is sitting in bed comfortably, currently off BiPAP. His respiratory status has improved somewhat following significant diuresis over the last 24 hours. The patient denies any new cardiac symptoms. Heart rate unchanged. Objective Vital Signs and I&Os Vital Signs Date Time Temp Pulse Resp B/P Pulse O2 O2 Flow FiO2 Ox Delivery Rate 10/28 1326 39 95 10/28 1226 93 Nasal 45% Cannula 10/28 1039 46 150/45 10/28 1038 48 150/45 10/28 0824 43 94 10/28 0800 90 BIPAP 45% 10/28 0800 97.0 46 16 158/80 90 BIPAP 45% 10/28 0608 41 97 10/28 0400 98 BIPAP 45% 10/28 0326 44 98 10/28 0027 42 95 10/28 0000 94 BIPAP 45% 10/27 2225 44 95 10/27 2142 97.8 51 31 153/67 10/27 1954 93 BIPAP 50% 10/27 1935 BIPAP 50% 10/27 1924 38 94 10/27 1744 42 146/69 10/27 1600 45 96 10/27 1600 97.0 45 36 172/80 96 BIPAP 50% 10/27 1600 96 BIPAP 60% 10/27 1441 96.2 45 26 171/72 98 BIPAP 60% Intake & Output 10/28 1600 10/28 0800 10/28 0000 10/27 1600 10/27 0800 10/27 0000 Intake Total 1033 370 Output Total 1205 1730 1200 Balance -172 -1360 -1200 Intake, IV 33 370 Intake, Oral 1000 Output, Urine 1205 1730 1200 Patient 393 lb 397 lb Weight Physical Exam: General Appearance Alert, Oriented X3, Moderate Distress Skin skin hyperpigmentationand hyperkeratosis due to venous stasis on both lower legs with areas of skin tear (stage 1 - one small 0.5x0.5 on the posterior right lower leg, 2 larger areas of skin tear on the anterior left lower leg) HEENT unremarkable Neck Supple; JVP not adequately assessed; carotids normal Cardiovascular Regular Rate, No Murmurs, distant heart sounds Lungs decreased breath sounds with scattered rhonchi bilaterally Abdomen Soft, No Tenderness, obese Neurological nonfocal [id number]+ pitting edema bilaterally Vascular distal lower extremity pulses not well assessed due to edema Current Medications: Current Medications Sig/Ji Start time Last Medication Dose Route Stop Time Status Admin Acetaminophen 650 MG Q8P PRN 10/27 1500 AC PO Albuterol Sulfate 3 ML Q4P PRN 10/27 1945 AC INH Aspirin Buffered 81 MG DAILY 10/28 1000 AC 10/28 PO 1038 Atorvastatin Calcium 20 MG 1700 10/27 1700 AC PO Atropine Sulfate 1 MG .STK-MED ONE 10/27 1713 DC IM 10/27 1714 Ceftazidime 1,000 MG Q12 10/27 1532 DC 10/28 IV 1038 Furosemide 40 MG 7:30 AM, & 4:30 PM 10/27 1900 AC 10/28 IV 0652 Heparin Sodium 5,000 UNIT Q8 10/27 2200 AC 10/28 (Porcine) SC 0653 Hydralazine HCl 25 MG TID 10/27 1600 AC 10/28 PO 1038 Levetiracetam 1,000 MG BID 10/27 2200 DC PO Levetiracetam 1,000 MG Q12 10/27 2200 AC 10/28 N/A 1 UNIT IV 1038 Lisinopril 40 MG DAILY 10/27 1600 AC 10/28 PO 1039 Nitroglycerin 0.4 MG DAILY 10/27 1548 AC 10/28 TOP 1039 Nystatin 1 SAM BID 10/27 2200 AC 10/28 TOP 1038 Nystatin 1 SAM BID 10/27 2200 CAN TOP Patient Medication 1 UNIT ONE NR 10/27 1900 DC Teaching ED 10/27 1930 Potassium Chloride 20 MEQ BID 10/27 2200 AC 10/28 PO 1038 Vancomycin HCl 1,000 MG DAILY 10/27 1532 DC 10/28 Sodium Chloride 250 ML IV 1040 Results Last 48 Hrs of Labs/Mics: Laboratory Tests 10/28/16 0505: pH 7.35, pCO2 56 H, pO2 88, HCO3 30 H, ABG O2 Sat (Measured) 94.0 L, P-50 ( Temp Corrected) Y, Carboxyhemoglobin 1.5, O2 Concentration % 45%, Temperature 98.7, Respiration Rate 30, O2 Delivery Method [id number], Vent Mode ST, Expiratory Pressure 8, Inspiratory Pressure 22, Phlebotomy Draw Site LEFT RADIAL 10/28/16 0500: Anion Gap 10, Estimated GFR > 60, BUN/Creatinine Ratio 28.2 H, Troponin I 0.14 *H, CBC w Diff NO MAN DIFF REQ, RBC 4.77, MCV 95.0 H, MCH 30.4, RDW 17.3 H, MPV 9.8, Gran % 77.4 H, Lymphocytes % 10.7 L, Monocytes % 10.0 H, Eosinophils % 1.8, Basophils % 0.1, Absolute Granulocytes 7.7 H, Absolute Lymphocytes 1.1 L, Absolute Monocytes 1.0 H, Absolute Eosinophils 0.2, Absolute Basophils 0, PUBS MCHC 32.0 L 10/27/16 2307: Troponin I 0.14 *H 10/27/16 2150: pH 7.30 *L, pCO2 63 *H, pO2 74 L, HCO3 30 H, ABG O2 Sat (Measured) 92.0 L, P- 50 (Temp Corrected) N, Carboxyhemoglobin 2.1, O2 Concentration % 45%, Temperature 97.0, Respiration Rate 30, O2 Delivery Method BIPAP, Vent Mode ST, Expiratory Pressure 8, Inspiratory Pressure 22, Phlebotomy Draw Site RIGHT BRACHIAL 10/27/16 1830: pH 7.30 *L, pCO2 60 *H, pO2 101 H, HCO3 28, ABG O2 Sat (Measured) 95.0 L, P-50 (Temp Corrected) N, Carboxyhemoglobin 1.5, O2 Concentration % 50%, Temperature 97.0, Respiration Rate 30, O2 Delivery Method FFM, Vent Mode ST, Expiratory Pressure 8, Inspiratory Pressure 22, Phlebotomy Draw Site RIGHT RADIAL 10/27/16 1800: Troponin I 0.12 *H 10/27/16 1635: pH 7.26 *L, pCO2 68 *H, pO2 86, HCO3 30 H, ABG O2 Sat (Measured) 93.0 L, P-50 (Temp Corrected) N, Carboxyhemoglobin 1.9, O2 Concentration % 50%, Temperature 97.0, Respiration Rate 26, O2 Delivery Method FFM, Vent Mode ST, Expiratory Pressure 8, Inspiratory Pressure 20, Phlebotomy Draw Site RIGHT BRACHIAL 10/27/16 1328: Lactic Acid Cancelled 10/27/16 1105: Lactic Acid 1.0 10/27/16 1105: Anion Gap 10, Estimated GFR > 60, BUN/Creatinine Ratio 35.6 H, Glucose 130 H, Calcium 8.6, Magnesium 2.6 H, Total Bilirubin 1.5 H, AST 35, ALT 56, Alkaline Phosphatase 55, Troponin I 0.12 *H, [id number]-[id number] Pept 2860 H, Total Protein 8.0, Albumin 4.0, Globulin 4.0, Albumin/Globulin Ratio 1.0 L, PT 13.9 H, INR 1.33 H, CBC w Diff NO MAN DIFF REQ, RBC 5.35, MCV 94.1 H, MCH 30.8, RDW 17.0 H, MPV 9.5, Gran % 75.5 H, Lymphocytes % 14.3 L, Monocytes % 7.3, Eosinophils % 2.1, Basophils % 0.8, Absolute Granulocytes 7.2 H, Absolute Lymphocytes 1.4, Absolute Monocytes 0.7 H, Absolute Eosinophils 0.2, Absolute Basophils 0.1, PUBS MCHC 32.7 L 10/27/16 1050: Bicarbonate Actual 31 H, Mixed VBG pH 7.17 L, Mixed VBG pCO2 86 H, Mixed VBG O2 Saturation 31 L, Carboxyhemoglobin 2.6, O2 Concentration % 100%, O2 Delivery Method NRB, Phlebotomy Draw Site LEFT RADIAL Assessment/Plan Assessment/Plan Assessment: 1. Acute on chronic HFpEF 2. Minimally elevated troponin 3. Obstructive sleep apnea 4. Obesity 5. Venous insufficiency with lower extremity edema 6. Hypertension 7. Hyperlipidemia Recommendations: -Continue current regimen with IV Lasix diuresis. The patient is a proximally 3000 mL negative over the last 24 hours. -Continue management as per pulmonary -Keep the patient on the monitor -Further decisions about possible permanent pacemaker implantation on Sunday per Dr. Wakefield. Continue telemetry? Yes
[2016-10-28 16:00] VITALS: BP 140/70
[2016-10-29] VITALS: BP 145/47
[2016-10-29 05:01] LABS: ABSOLUTE BASOPHIL COUNT 0 /CUMM (0.0-0.2); ABSOLUTE EOSINOPHIL COUNT 0.3 /CUMM (0.0-0.7); ABSOLUTE GRANULOCYTE CT 6.8 /CUMM (1.4-6.5); ABSOLUTE LYMPH COUNT 1.3 /CUMM (1.2-3.4); ABSOLUTE MONOCYTE COUNT 1.1 /CUMM (0.10-0.60); BASOPHIL % 0.3 % (0.0-2.0); EOSINOPHIL % 2.8 % (0-5); GRANULOCYTE % 71.3 % (42.2-75.2); HEMATOCRIT 44.6 % (42-52); MEAN CORPUSCULAR HGB 30.5 PG (27.0-31.0); MEAN CORPUSCULAR VOLUME 95.3 FL (80.0-94.0); MEAN PLATELET VOLUME 9.4 FL (7.4-10.4); PLATELET COUNT 124 /CUMM (130-400); RED BLOOD CELL CT 4.68 /CUMM (4.70-6.10); WHITE BLOOD CELL COUNT 9.5 /CUMM (4.8-10.8)
--- NOTE | 2016-10-29 07:41 | PN- Resident CRCU ---
Subjective HPI/CRCU Issues: Mr. Weaver was seen and examined this morning. He is on Bipap 55%, does not endorse any complaint. Denies dizziness and reports improvement in SOB and leg swelling. He is currently on BiPAP. Patient states that he does feel better than compared to the time of admission. Patient has defibrillator at bedside with pads on. 24 Hour Events: Laboratory Tests 10/29 0430 Chemistry Sodium (137 - 145 mmol/L) 146 H Potassium (3.5 - 5.1 mmol/L) 4.6 Chloride (98 - 107 mmol/L) 103 Carbon Dioxide (22 - 30 mmol/L) 35 H Anion Gap (5 - 16) 8 BUN (9 - 20 mg/dL) 31 H Creatinine (0.7 - 1.2 mg/dL) 1.1 Estimated GFR (>60 ml/min) > 60 BUN/Creatinine Ratio (7 - 25 %) 28.2 H Hematology CBC w Diff NO MAN DIFF REQ WBC (4.8 - 10.8 /CUMM) 9.5 RBC (4.70 - 6.10 /CUMM) 4.68 L Hgb (14.0 - 18.0 G/DL) 14.3 Hct (42 - 52 %) 44.6 MCV (80.0 - 94.0 FL) 95.3 H MCH (27.0 - 31.0 PG) 30.5 RDW (11.5 - 14.5 %) 18.0 H Plt Count (130 - 400 /CUMM) 124 L MPV (7.4 - 10.4 FL) 9.4 Gran % (42.2 - 75.2 %) 71.3 Lymphocytes % (20.5 - 51.1 %) 14.0 L Monocytes % (1.7 - 9.3 %) 11.6 H Eosinophils % (0 - 5 %) 2.8 Basophils % (0.0 - 2.0 %) 0.3 Absolute Granulocytes (1.4 - 6.5 /CUMM) 6.8 H Absolute Lymphocytes (1.2 - 3.4 /CUMM) 1.3 Absolute Monocytes (0.10 - 0.60 /CUMM) 1.1 H Absolute Eosinophils (0.0 - 0.7 /CUMM) 0.3 Absolute Basophils (0.0 - 0.2 /CUMM) 0 PUBS MCHC (33.0 - 37.0 G/DL) 32.0 L Vital Signs Date Time Temp Pulse Resp B/P Pulse O2 O2 Flow FiO2 Ox Delivery Rate 10/29 0950 45 120/54 10/29 0949 45 120/54 10/29 0835 32 98 10/29 0800 96 BIPAP 55% 10/29 0800 97.5 36 30 138/62 99 BIPAP 55% 10/29 0558 37 97 10/29 0400 98 BIPAP 55% 10/29 0316 38 98 10/29 0020 38 98 10/29 0000 95 BIPAP 55% 10/29 0000 97.9 35 30 145/47 95 BIPAP 55% 10/28 2218 92 BIPAP 55% 10/28 2214 47 92 10/28 2156 40 135/60 10/28 2000 92 BIPAP 40% 10/28 1602 40 95 10/28 1600 93 BIPAP 40% 10/28 1600 98.0 40 18 140/70 93 BIPAP 40% 10/28 1326 39 95 10/28 1226 93 Nasal 45% Cannula 10/28 1200 89 Nasal 5.0L Cannula 10/28 1039 46 150/45 10/28 1038 48 150/45 Intake & Output 10/29 1600 10/29 0800 10/29 0000 Intake Total 150 700 Output Total 380 700 Balance -230 0 Intake, IV 100 Intake, Oral 150 600 Output, Urine 380 700 Patient 176.447 kg Weight Objective Vital Signs & I&O Last 8 Hrs of Vitals and I&O: max Temp BP 129/57 to 164/65 RI 32-38 (bradycardic since admission, monitor shows first degree AVB going back and forth to a second degree AV block Mobitz II) RR 30 I's 150 cc O's 380 cc Exam General Appearance: well developed/nourished, alert, awake, comfortable, obese Head: atraumatic Ears, Nose, Throat: normal ENT inspection Neck: normal inspection, supple Respiratory: normal breath sounds, chest non-tender Cardiovascular: regular rate/rhythm, edema (bradycardic) Gastrointestinal: normal bowel sounds, soft, non-tender Extremities: normal inspection, normal capillary refill, swelling Cranial Nerves: normal speech, PERRL Skin: erythema on the lower legs with 2+ edema, stage 1 skin ulcers on lower shins on both sides Current Medications: Current Medications Sig/Ji Start time Last Medication Dose Route Stop Time Status Admin Acetaminophen 650 MG Q8P PRN 10/27 1500 AC PO Albuterol Sulfate 3 ML Q4P PRN 10/27 1945 AC INH Aspirin Buffered 81 MG DAILY 10/28 1000 AC 10/29 PO 0949 Atorvastatin Calcium 20 MG 1700 10/27 1700 AC 10/29 PO 1721 Furosemide 40 MG 7:30 AM, & 4:30 PM 10/27 1900 AC 10/29 IV 1721 Heparin Sodium 5,000 UNIT Q8 10/27 2200 AC 10/29 (Porcine) SC 1421 Hydralazine HCl 25 MG TID 10/27 1600 AC 10/29 PO 1721 Levetiracetam 1,000 MG Q12 10/27 2200 AC 10/29 N/A 1 UNIT IV 1044 Lisinopril 40 MG DAILY 10/27 1600 AC 10/29 PO 0950 Nitroglycerin 0.4 MG DAILY 10/27 1548 AC 10/29 TOP 0950 Nystatin 1 SAM BID 10/27 2200 AC 10/29 TOP 0950 Potassium Chloride 20 MEQ BID 10/27 2200 AC 10/29 PO 0949 Impression/Plan Impression/Problem List Impression: Patient is a 66 year old gentleman with PMH of HTN, HLD, diastolic HF, COPD, DAGOBERTO , cardiac arrest during a recent admission at [facility] in Jun 2016, who was brought in to the ED due to hypoxia, cyanosis, 2 days of SOB at rest and orthopnea. Patient is also bradycardic since the previous admission in June and is supposed to have a pacemaker placed. Problem list and plan: Acute hypoxic hypercarbic respiratory failure Patient has history of COPD, cough with phlegm, does not report increased coughing and change in the color of the sputum. exam reveals rhonchi, no wheezing. other possibility is CHF exacerbation. ProBNP elevated (although relatively lower than the previous measurement in June), also reports orthopnea, worsening SOB and increased LE edema and skin tear. ABG shows hypercarbia, respiratory acidosis CXR: hazy opacities at the bases of the lungs - possible pneumonia - off antibiotics, received IV vancomycin and ceftazidime * ICU admit * monitor Vital signs and O2 suppl as needed to keep SO2>92% (currently requiring Bipap) * on Bipap, O2 suppl to keep SO2>92% * continue lasix 40 mg IV BID * follow up lower respiratory cultures Complete heart block EKG shows LBBB and Complete heart block * patient is a candidate for a pacemaker * will be kept on monitor and recommend to keep pads on the chest and defibrillator at bedside * consider atropine at bedside History of HTN, HLD, seizure disorder * continue home medications : keppra, statin, lisinopril Diet heart healthy diet DVT px heparin SC FULL CODE Problem List: 1. COPD (chronic obstructive pulmonary disease) 2. ACUTE CHF 3. Diastolic heart failure 4. Obesity hypoventilation syndrome 5. Hypoxia 6. First degree AV block 7. Second degree AV block, Mobitz type II Pain Ratin Tomorrow's Labs & Rationales: CBC and ICU bundle (monitor for leuekocytosis and electrolyte abnormalities) Plan DVT/Prophylaxis: pharmacological
[2016-10-29 08:00] VITALS: BP 138/62
--- NOTE | 2016-10-29 10:41 | PN- CRCU ---
Subjective HPI/Critical Care Issues: Patient is awake alert comfortable shortness of breath is improved he continues to diurese. He is being evaluated for possible permanent pacemaker Objective Current Medications: Current Medications Sig/Ji Start time Last Medication Dose Route Stop Time Status Admin Acetaminophen 650 MG Q8P PRN 10/27 1500 AC PO Albuterol Sulfate 3 ML Q4P PRN 10/27 1945 AC INH Aspirin Buffered 81 MG DAILY 10/28 1000 AC 10/29 PO 0949 Atorvastatin Calcium 20 MG 1700 10/27 1700 AC 10/28 PO 1909 Ceftazidime 1,000 MG Q12 10/27 1532 DC 10/28 IV 1038 Furosemide 40 MG 7:30 AM, & 4:30 PM 10/27 1900 AC 10/29 IV 0743 Heparin Sodium 5,000 UNIT Q8 10/27 2200 AC 10/29 (Porcine) SC 0538 Hydralazine HCl 25 MG TID 10/27 1600 AC 10/29 PO 0949 Levetiracetam 1,000 MG Q12 10/27 2200 AC 10/28 N/A 1 UNIT IV 2155 Lisinopril 40 MG DAILY 10/27 1600 AC 10/29 PO 0950 Nitroglycerin 0.4 MG DAILY 10/27 1548 AC 10/29 TOP 0950 Nystatin 1 SAM BID 10/27 2200 AC 10/29 TOP 0950 Potassium Chloride 20 MEQ BID 10/27 2200 AC 10/29 PO 0949 Vancomycin HCl 1,000 MG DAILY 10/27 1532 DC 10/28 Sodium Chloride 250 ML IV 1040 Vital Signs & I&O Last 24 Hrs of Vitals and I&O: Vital Signs Date Time Temp Pulse Resp B/P Pulse O2 O2 Flow FiO2 Ox Delivery Rate 10/29 0950 45 120/54 10/29 0949 45 120/54 10/29 0835 32 98 10/29 0800 96 BIPAP 55% 10/29 0800 97.5 36 30 138/62 99 BIPAP 55% 10/29 0558 37 97 10/29 0400 98 BIPAP 55% 10/29 0316 38 98 10/29 0020 38 98 10/29 0000 95 BIPAP 55% 10/29 0000 97.9 35 30 145/47 95 BIPAP 55% 10/28 2217 92 BIPAP 55% 10/28 2213 47 92 10/29 2155 40 135/60 10/29 1999 92 BIPAP 40% 10/28 1602 40 95 10/28 1600 93 BIPAP 40% 10/28 1600 98.0 40 18 140/70 93 BIPAP 40% 10/28 1326 39 95 10/28 1226 93 Nasal 45% Cannula 10/28 1200 89 Nasal 5.0L Cannula Intake & Output 10/29 1600 10/29 0800 10/29 0000 Intake Total 150 700 Output Total 380 700 Balance -230 0 Intake, IV 100 Intake, Oral 150 600 Output, Urine 380 700 Patient 389 lb Weight Oxygen saturation 98% FiO2 55 exam of his chest shows diminished breath sounds are no wheezes cardiac exam shows regular S1 and S2 without murmurs Impression/Plan Impression/Plan Impression/Plan: CC 6-year-old gentleman admitted with hypercapnic respiratory failure secondary to congestive heart failure. c T scan shows congestive heart failure without evidence of pneumonia his white count is normal without left shift. Hypercarbia is improved with diuresis and BiPAP Recommendations: .. Taper FiO2 his saturations allow trial off BiPAP continue negative fluid balance. Consider r DC antibiotics with no evidence of pneumonia. DVT prophylaxis. Await decision on need for permanent pacemaker
[2016-10-29 12:00] VITALS: BP 126/80
--- NOTE | 2016-10-29 14:16 | PN- Cardiology ---
Subjective Subjective: The patient is doing well. Respiratory status stable. On high flow nasal oxygen. Awaiting further decisions about pacemaker implantation. Continue diuresis for now. Objective Vital Signs and I&Os Vital Signs Date Time Temp Pulse Resp B/P Pulse O2 O2 Flow FiO2 Ox Delivery Rate 10/29 1337 96 Nasal 55% Cannula 10/29 1200 Nasal 55% Cannula 10/29 1200 98.7 44 30 126/80 98 Nasal 55% Cannula 10/29 0950 45 120/54 10/29 0949 45 120/54 10/29 0924 96 Nasal 55% Cannula 10/29 0835 32 98 10/29 0800 96 BIPAP 55% 10/29 0800 97.5 36 30 138/62 99 BIPAP 55% 10/29 0558 37 97 10/29 0400 98 BIPAP 55% 10/29 0316 38 98 10/29 0020 38 98 10/29 0000 95 BIPAP 55% 10/29 0000 97.9 35 30 145/47 95 BIPAP 55% 10/28 2218 92 BIPAP 55% 10/28 2214 47 92 10/28 2156 40 135/60 10/28 2000 92 BIPAP 40% 10/28 1602 40 95 10/28 1600 93 BIPAP 40% 10/28 1600 98.0 40 18 140/70 93 BIPAP 40% Intake & Output 10/29 1600 10/29 0800 10/29 0000 10/28 1600 10/28 0800 10/28 0000 Intake Total 150 587 927 3922 370 Output Total 380 888 086 7206 1730 Balance -230 0 -470 -172 -1360 Intake, IV 100 350 33 370 Intake, Oral 150 600 0 1000 Output, Urine 380 239 515 8282 1730 Patient 389 lb 393 lb 397 lb Weight Physical Exam: General Appearance Alert, Oriented X3, Moderate Distress Skin normal HEENT unremarkable Neck Supple; JVP not adequately assessed; carotids normal Cardiovascular Regular Rate, No Murmurs, distant heart sounds Lungs decreased breath sounds with scattered rhonchi bilaterally Abdomen Soft, No Tenderness, obese Neurological nonfocal [id number]+ pitting edema bilaterally Vascular distal lower extremity pulses not well assessed due to edema Current Medications: Current Medications Sig/Ji Start time Last Medication Dose Route Stop Time Status Admin Acetaminophen 650 MG Q8P PRN 10/27 1500 AC PO Albuterol Sulfate 3 ML Q4P PRN 10/27 194 AC INH Aspirin Buffered 81 MG DAILY 10/28 1000 AC 10/29 PO 0949 Atorvastatin Calcium 20 MG 1700 10/27 1700 AC 10/28 PO 1909 Furosemide 40 MG 7:30 AM, & 4:30 PM 10/27 1900 AC 10/29 IV 0743 Heparin Sodium 5,000 UNIT Q8 10/27 2199 AC 10/29 (Porcine) SC 0538 Hydralazine HCl 25 MG TID 10/27 1600 AC 10/29 PO 0949 Levetiracetam 1,000 MG Q12 10/27 22010/29 N/A 1 UNIT IV 1044 Lisinopril 40 MG DAILY 10/27 1600 AC 10/29 PO 0950 Nitroglycerin 0.4 MG DAILY 10/27 1548 AC 10/29 TOP 0950 Nystatin 1 SAM BID 10/27 2199 AC 10/29 TOP 0950 Potassium Chloride 20 MEQ BID 10/27 2199 AC 10/29 PO 0949 Results Last 48 Hrs of Labs/Mics: Laboratory Tests 10/29/16 0430: Anion Gap 8, Estimated GFR > 60, BUN/Creatinine Ratio 28.2 H, CBC w Diff NO MAN DIFF REQ, RBC 4.68 L, MCV 95.3 H, MCH 30.5, RDW 18.0 H, MPV 9.4, Gran % 71.3, Lymphocytes % 14.0 L, Monocytes % 11.6 H, Eosinophils % 2.8, Basophils % 0.3, Absolute Granulocytes 6.8 H, Absolute Lymphocytes 1.3, Absolute Monocytes 1.1 H, Absolute Eosinophils 0.3, Absolute Basophils 0, PUBS MCHC 32.0 L 10/28/16 0505: pH 7.35, pCO2 56 H, pO2 88, HCO3 30 H, ABG O2 Sat (Measured) 94.0 L, P-50 ( Temp Corrected) Y, Carboxyhemoglobin 1.5, O2 Concentration % 45%, Temperature 98.7, Respiration Rate 30, O2 Delivery Method [id number], Vent Mode ST, Expiratory Pressure 8, Inspiratory Pressure 22, Phlebotomy Draw Site LEFT RADIAL 10/28/16 0500: Anion Gap 10, Estimated GFR > 60, BUN/Creatinine Ratio 28.2 H, Troponin I 0.14 *H, CBC w Diff NO MAN DIFF REQ, RBC 4.77, MCV 95.0 H, MCH 30.4, RDW 17.3 H, MPV 9.8, Gran % 77.4 H, Lymphocytes % 10.7 L, Monocytes % 10.0 H, Eosinophils % 1.8, Basophils % 0.1, Absolute Granulocytes 7.7 H, Absolute Lymphocytes 1.1 L, Absolute Monocytes 1.0 H, Absolute Eosinophils 0.2, Absolute Basophils 0, PUBS MCHC 32.0 L 10/27/16 2307: Troponin I 0.14 *H 10/27/16 2150: pH 7.30 *L, pCO2 63 *H, pO2 74 L, HCO3 30 H, ABG O2 Sat (Measured) 92.0 L, P- 50 (Temp Corrected) N, Carboxyhemoglobin 2.1, O2 Concentration % 45%, Temperature 97.0, Respiration Rate 30, O2 Delivery Method BIPAP, Vent Mode ST, Expiratory Pressure 8, Inspiratory Pressure 22, Phlebotomy Draw Site RIGHT BRACHIAL 10/27/16 1830: pH 7.30 *L, pCO2 60 *H, pO2 101 H, HCO3 28, ABG O2 Sat (Measured) 95.0 L, P-50 (Temp Corrected) N, Carboxyhemoglobin 1.5, O2 Concentration % 50%, Temperature 97.0, Respiration Rate 30, O2 Delivery Method FFM, Vent Mode ST, Expiratory Pressure 8, Inspiratory Pressure 22, Phlebotomy Draw Site RIGHT RADIAL 10/27/16 1800: Troponin I 0.12 *H 10/27/16 1635: pH 7.26 *L, pCO2 68 *H, pO2 86, HCO3 30 H, ABG O2 Sat (Measured) 93.0 L, P-50 (Temp Corrected) N, Carboxyhemoglobin 1.9, O2 Concentration % 50%, Temperature 97.0, Respiration Rate 26, O2 Delivery Method FFM, Vent Mode ST, Expiratory Pressure 8, Inspiratory Pressure 20, Phlebotomy Draw Site RIGHT BRACHIAL Microbiology 10/27 1550 GI: Surveillance Culture - COMP 10/27 1545 UPPER RESP: Surveillance Culture - COMP METH RESIST STAPH AUREUS Assessment/Plan Assessment/Plan Assessment: 1. Acute on chronic HFpEF 2. Minimally elevated troponin 3. Obstructive sleep apnea 4. Obesity 5. Venous insufficiency with lower extremity edema 6. Hypertension 7. Hyperlipidemia Recommendations: -Continue current regimen with IV Lasix diuresis. The patient is a proximally 3000 mL negative over the last 24 hours. -Continue management as per pulmonary -Keep the patient on the monitor -Further decisions about possible permanent pacemaker implantation on Sunday per Dr. Wakefield. Continue telemetry? Yes
[2016-10-29 16:00] VITALS: BP 150/64
[2016-10-30] VITALS: BP 124/59
[2016-10-30 04:42] LABS: ABSOLUTE BASOPHIL COUNT 0 /CUMM (0.0-0.2); ABSOLUTE EOSINOPHIL COUNT 0.5 /CUMM (0.0-0.7); ABSOLUTE GRANULOCYTE CT 6.1 /CUMM (1.4-6.5); ABSOLUTE LYMPH COUNT 1.7 /CUMM (1.2-3.4); BASOPHIL % 0.2 % (0.0-2.0); GRANULOCYTE % 65.5 % (42.2-75.2); HEMATOCRIT 43.2 % (42-52); MEAN CORPUSCULAR HGB 30.2 PG (27.0-31.0); MEAN CORPUSCULAR HGB CONC 31.9 G/DL (33.0-37.0); MEAN CORPUSCULAR VOLUME 94.7 FL (80.0-94.0); MEAN PLATELET VOLUME 9.9 FL (7.4-10.4); PLATELET COUNT 126 /CUMM (130-400); RBC DISTRIBUTION WIDTH 17.9 % (11.5-14.5); RED BLOOD CELL CT 4.56 /CUMM (4.70-6.10); WHITE BLOOD CELL COUNT 9.3 /CUMM (4.8-10.8)
--- NOTE | 2016-10-30 07:32 | PN- Resident CRCU ---
Subjective HPI/CRCU Issues: Patient is a 66 year old gentleman with PMH of HTN, HLD, diastolic HF, COPD, DAGOBERTO , cardiac arrest during a recent admission at [facility] in Jun 2016, who was brought in to the ED due to hypoxia, cyanosis, 2 days of SOB at rest and orthopnea. Patient is also bradycardic since the previous admission in June and is supposed to have a pacemaker placed. Active issues: 1. AHRF, improving - was on Bipap and switched to high flow nasal cannula this morning 2. bradycardia, candidate for pacemaker no overnight events, reports he slept well and breathing has improved as well as the leg swelling. Patient is awaiting for a pacemaker placement tomorrow, will undergo intubation. 24 Hour Events: Laboratory Tests 10/30/16 0330: Anion Gap 7, Estimated GFR > 60, Glucose 80, Calcium 7.9 L, Phosphorus 4.4, Magnesium 2.3, Total Bilirubin 1.3, AST 19, ALT 36, Troponin I 0.12 *H, Albumin 2.9 L, CBC w Diff NO MAN DIFF REQ, RBC 4.56 L, MCV 94.7 H, MCH 30.2, RDW 17.9 H, MPV 9.9, Gran % 65.5, Lymphocytes % 18.5 L, Monocytes % 10.8 H, Eosinophils % 5.0, Basophils % 0.2, Absolute Granulocytes 6.1, Absolute Lymphocytes 1.7, Absolute Monocytes 1.0 H, Absolute Eosinophils 0.5, Absolute Basophils 0, PUBS MCHC 31.9 L Vital Signs Date Time Temp Pulse Resp B/P Pulse O2 O2 Flow FiO2 Ox Delivery Rate 10/30 1155 38 159/60 10/30 0816 96 Nasal 55% Cannula 10/30 0807 40 98 10/30 0800 100 Nasal 55% Cannula 10/30 0800 97.4 38 30 136/70 100 Nasal 55% Cannula 10/30 0540 39 100 10/30 0400 97 BIPAP 50% 10/30 0230 34 98 10/30 0228 39 100 10/30 0000 97.6 39 30 124/59 97 BIPAP 55% 10/30 0000 97 BIPAP 55% 10/29 2304 40 94 10/29 2233 95 Nasal 55% Cannula 10/291 40 137/42 10/30 1999 98 Nasal 55% Cannula 10/29 1922 94 Nasal 55% Cannula 10/29 1721 45 150/64 10/29 1654 97 Nasal 55% Cannula 10/29 1600 96 Nasal 55% Cannula 10/29 1600 97.9 45 24 150/64 96 Nasal 55% Cannula Intake & Output 10/30 1600 10/30 0800 10/30 0000 Intake Total 1260 Output Total 520 1650 Balance -520 -390 Intake, IV 100 Intake, Oral 1160 Output, Urine 520 1650 Patient 175.625 kg 175.994 kg Weight Objective Vital Signs & I&O Last 8 Hrs of Vitals and I&O: T max 97.6 BP 91/39 to 163/67 RR 30 bibpap 50% 97-100% NJ 34-39 Intake & Output 10/30 1600 Intake Total 0 Output Total 520 Balance -520 Patient 175.625 kg Weight Exam General Appearance: well developed/nourished, no apparent distress, alert, awake , obese Head: atraumatic, normal appearance Ears, Nose, Throat: normal ENT inspection Neck: supple, full range of motion Respiratory: chest non-tender, no respiratory distress, quiet respiration Cardiovascular: regular rate/rhythm, bradycardia Gastrointestinal: soft, non-tender Extremities: normal capillary refill, normal range of motion Cranial Nerves: normal speech, PERRL Skin: rash, psoriatis skin lesions on the face, venous stasis skin hyperpigmentation Back: normal inspection, normal range of motion Current Medications: Current Medications Sig/Ji Start time Last Medication Dose Route Stop Time Status Admin Acetaminophen 650 MG Q8P PRN 10/27 1500 AC PO Albuterol Sulfate 3 ML Q4P PRN 10/27 1945 AC INH Aspirin Buffered 81 MG DAILY 10/28 1000 AC 10/30 PO 1156 Atorvastatin Calcium 20 MG 1700 10/27 1700 AC 10/30 PO 1700 Furosemide 40 MG 7:30 AM, & 4:30 PM 10/27 1900 AC 10/30 IV 1702 Heparin Sodium 5,000 UNIT Q8 10/27 2199 AC 10/30 (Porcine) SC 1400 Hydralazine HCl 25 MG TID 10/27 1600 AC 10/30 PO 1700 Levetiracetam 1,000 MG Q12 10/27 2200 10/30 N/A 1 UNIT IV 1155 Lisinopril 40 MG DAILY 10/27 1600 10/30 PO 1156 Nitroglycerin 0.4 MG DAILY 10/27 1548 AC 10/30 TOP 1156 Nystatin 1 SAM BID 10/27 2200 AC 10/30 TOP 1156 Potassium Chloride 20 MEQ BID 10/27 2199 AC 10/30 PO 1156 Impression/Plan Impression/Problem List Impression: Patient is a 66 year old gentleman with PMH of HTN, HLD, diastolic HF, COPD, DAGOBERTO , cardiac arrest during a recent admission at [facility] in Jun 2016, who was brought in to the ED due to hypoxia, cyanosis, 2 days of SOB at rest and orthopnea. Patient is also bradycardic since the previous admission in June and is supposed to have a pacemaker placed. Forte catheter day 4 Problem list and plan: Acute hypoxic hypercarbic respiratory failure - improved most likely due to CHF exacerbation tapered oxygen supplementation to keep SO2>92% curretnly on high flow through NC * monitor Vital signs and O2 suppl as needed to keep SO2>92% * continue lasix 40 mg IV BID * follow up lower respiratory cultures First degree AV block and bradycardia EKG shows LBBB and Complete heart block * patient is a candidate for a pacemaker, NPO after midnight for the procedure, will be under general anesthesia * will be kept on monitor and recommend to keep pads on the chest and defibrillator at bedside * consider atropine at bedside History of HTN, HLD, seizure disorder * continue home medications : keppra, statin, lisinopril Diet heart healthy diet DVT px heparin SC FULL CODE Problem List: 1. Bradycardia Pain Ratin Tomorrow's Labs & Rationales: ICU bundle, CBC, coags (monitor electrolytes, will have pacemaker placed tomorrow) Plan DVT/Prophylaxis: pharmacological
[2016-10-30 08:00] VITALS: BP 136/70
--- NOTE | 2016-10-30 08:43 | PN- CRCU ---
Subjective HPI/Critical Care Issues: The patient remains on BIPAP, appears comfortable. The patient remains bradycardic and is NPO pending pacemaker placement. He continues to require 50% oxygen. The patient denies any discomfort. He is awake and alert, and following commands. There were no overnight events reported. Objective Current Medications: Current Medications Sig/Ji Start time Last Medication Dose Route Stop Time Status Admin Acetaminophen 650 MG Q8P PRN 10/27 1500 AC PO Albuterol Sulfate 3 ML Q4P PRN 10/27 1945 AC INH Aspirin Buffered 81 MG DAILY 10/28 1000 AC 10/29 PO 0949 Atorvastatin Calcium 20 MG 1700 10/27 1700 AC 10/29 PO 1721 Furosemide 40 MG 7:30 AM, & 4:30 PM 10/27 1900 AC 10/30 IV 0823 Heparin Sodium 5,000 UNIT Q8 10/27 2200 AC 10/30 (Porcine) SC 0550 Hydralazine HCl 25 MG TID 10/27 1600 AC 10/29 PO 2121 Levetiracetam 1,000 MG Q12 10/27 2200 AC 10/29 N/A 1 UNIT IV 2112 Lisinopril 40 MG DAILY 10/27 1600 AC 10/29 PO 0950 Nitroglycerin 0.4 MG DAILY 10/27 1548 AC 10/29 TOP 0950 Nystatin 1 SAM BID 10/27 2200 AC 10/29 TOP 2121 Potassium Chloride 20 MEQ BID 10/27 2200 AC 10/29 PO 2120 Vital Signs & I&O Last 24 Hrs of Vitals and I&O: Vital Signs Date Time Temp Pulse Resp B/P Pulse O2 O2 Flow FiO2 Ox Delivery Rate 10/30 0816 96 Nasal 55% Cannula 10/30 0807 40 98 10/30 0540 39 100 10/30 0400 97 BIPAP 50% 10/30 0230 34 98 10/30 0228 39 100 10/30 0000 97.6 39 30 124/59 97 BIPAP 55% 10/30 0000 97 BIPAP 55% 10/29 2304 40 94 10/29 2233 95 Nasal 55% Cannula 10/29 2121 40 137/42 10/30 1999 98 Nasal 55% Cannula 10/29 1922 94 Nasal 55% Cannula 10/29 1721 45 150/64 10/29 1654 97 Nasal 55% Cannula 10/29 1600 96 Nasal 55% Cannula 10/29 1600 97.9 45 24 150/64 96 Nasal 55% Cannula 10/29 1337 96 Nasal 55% Cannula 10/29 1200 Nasal 55% Cannula 10/29 1200 98.7 44 30 126/80 98 Nasal 55% Cannula 10/29 0950 45 120/54 10/29 0949 45 120/54 10/29 0924 96 Nasal 55% Cannula 10/29 0835 32 98 Intake & Output 10/30 1600 10/30 0800 10/30 0000 Intake Total 1260 Output Total 520 1650 Balance -520 -390 Intake, IV 100 Intake, Oral 1160 Output, Urine 520 1650 Patient 388 lb Weight Physical Exam General Appearance Alert and oriented, no distress, on BIPAP Skin skin hyperpigmentationand hyperkeratosis due to venous stasis on both lower legs with areas of skin tear (stage 1 - one small 0.5x0.5 on the posterior right lower leg, 2 larger areas of skin tear on the anterior left lower leg) HEENT Atraumatic Neck Supple Cardiovascular Regular Rate, Bradycardia, No Murmurs, distant heart sounds Lungs Decreased breath sounds, scattered rhonchi, no wheezing Abdomen Soft, No Tenderness, obese Extremities 4+ pitting edema on lower extremities Results Last 24 Hrs of Lab Results: Laboratory Tests 10/30/16 0330: Anion Gap 7, Estimated GFR > 60, Glucose 80, Calcium 7.9 L, Phosphorus 4.4, Magnesium 2.3, Total Bilirubin 1.3, AST 19, ALT 36, Troponin I Pending, Albumin 2.9 L, CBC w Diff NO MAN DIFF REQ, RBC 4.56 L, MCV 94.7 H, MCH 30.2, RDW 17.9 H, MPV 9.9, Gran % 65.5, Lymphocytes % 18.5 L, Monocytes % 10.8 H, Eosinophils % 5.0, Basophils % 0.2, Absolute Granulocytes 6.1, Absolute Lymphocytes 1.7, Absolute Monocytes 1.0 H, Absolute Eosinophils 0.5, Absolute Basophils 0, PUBS MCHC 31.9 L Impression/Plan Impression/Plan Impression/Plan: 1. Acute hypoxemic respiratory failure, secondary to acute HFpEF. Pneumonia less likely. 2. Complete heart block, for pacemaker placement. 3. History of COPD. 4. Obesity hypoventilation/uncontrolled DAGOBERTO. Chronic hypercarbic respiratory failure. 5. Chronic venous stasis/lower extremity edema. 6. Minimally elevated troponin. 7. Hypertension. 8. Hyperlipidemia. Recommendations: * Continue nocturnal BiPAP. * Continue nebs/TRC. * Continue high flow oxygen during the day. * Await pacemaker placement. * Diuresis as recommended by cardiology. Monitor strict I & Os, continue rocha. * Continue medication for blood pressure control. * Monitor off antibiotics for now. * Will continue to monitor culture data. * DVT prophylaxis at all times. * Continue all supportive care.
--- NOTE | 2016-10-30 10:09 | PN- Cardiology ---
Subjective Subjective: Phong Weaver is a 66-year-old man with CHF and recent severe respiratory failure. He also has underlying heart block with second-degree heart block, sometimes Wenckebach, sometimes a 2:1 heart block. He is relatively asymptomatic from this. He also has some wound issues for which we have deferred consideration for a pacemaker. He has a decubitus wound on his buttock and some wounds on his legs, most of which have improved. The patient was admitted 2 days ago for respiratory failure. He is improved but still on high flow oxygen.. He remains in predominantly 2:1 heart block on the monitor. Objective Vital Signs and I&Os Vital Signs Date Time Temp Pulse Resp B/P Pulse O2 O2 Flow FiO2 Ox Delivery Rate 10/30 0816 96 Nasal 55% Cannula 10/30 0807 40 98 10/30 0800 100 Nasal 55% Cannula 10/30 0800 97.4 38 30 136/70 100 Nasal 55% Cannula 10/30 0540 39 100 10/30 0400 97 BIPAP 50% 10/30 0230 34 98 10/30 0228 39 100 10/30 0000 97.6 39 30 124/59 97 BIPAP 55% 10/30 0000 97 BIPAP 55% 10/29 2304 40 94 / 2233 95 Nasal 55% Cannula 10/29 2121 40 137/42 10/29 2000 98 Nasal 55% Cannula / 1922 94 Nasal 55% Cannula /16 1721 45 150/64 / 1654 97 Nasal 55% Cannula / 1600 96 Nasal 55% Cannula / 1600 97.9 45 24 150/64 96 Nasal 55% Cannula 10/29 1337 96 Nasal 55% Cannula 10/29 1200 Nasal 55% Cannula / 1200 98.7 44 30 126/80 98 Nasal 55% Cannula Intake & Output 10/30 1600 04/17 0800 04/17 0000 16 1600 / 0800 10/29 0000 Intake Total 1260 1354 150 700 Output Total 520 1650 1900 380 700 Balance -520 -390 -546 -230 0 Intake, IV 100 154 100 Intake, Oral 1160 1200 150 600 Number 0 Bowel Movements Output, Urine 520 1650 1900 380 700 Patient 387 lb 388 lb 389 lb Weight Physical Exam: He is in no distress at this time HEENT exam is normal Chest reveals decreased breath sounds Heart reveals very soft heart sounds with bradycardia and no murmurs Extremities reveal chronic resolving edema Current Medications: Current Medications Sig/Ji Start time Last Medication Dose Route Stop Time Status Admin Acetaminophen 650 MG Q8P PRN 10/27 1500 AC PO Albuterol Sulfate 3 ML Q4P PRN 10/27 1945 AC INH Aspirin Buffered 81 MG DAILY 10/28 1000 AC 10/29 PO 0949 Atorvastatin Calcium 20 MG 1700 10/27 1700 AC 10/29 PO 1721 Furosemide 40 MG 7:30 AM, & 4:30 PM 10/27 1900 AC 10/30 IV 0823 Heparin Sodium 5,000 UNIT Q8 10/27 2200 AC 10/30 (Porcine) SC 0550 Hydralazine HCl 25 MG TID 10/27 1600 AC 10/29 PO 2121 Levetiracetam 1,000 MG Q12 10/27 2200 AC 10/29 N/A 1 UNIT IV 2112 Lisinopril 40 MG DAILY 10/27 1600 AC 10/29 PO 0950 Nitroglycerin 0.4 MG DAILY 10/27 1548 AC 10/29 TOP 0950 Nystatin 1 SAM BID 10/27 2200 AC 10/29 TOP 2121 Potassium Chloride 20 MEQ BID 10/27 220 AC 10/29 PO 2120 Results Last 48 Hrs of Labs/Mics: Laboratory Tests 10/30/16 0330: Anion Gap 7, Estimated GFR > 60, Glucose 80, Calcium 7.9 L, Phosphorus 4.4, Magnesium 2.3, Total Bilirubin 1.3, AST 19, ALT 36, Troponin I 0.12 *H, Albumin 2.9 L, CBC w Diff NO MAN DIFF REQ, RBC 4.56 L, MCV 94.7 H, MCH 30.2, RDW 17.9 H, MPV 9.9, Gran % 65.5, Lymphocytes % 18.5 L, Monocytes % 10.8 H, Eosinophils % 5.0, Basophils % 0.2, Absolute Granulocytes 6.1, Absolute Lymphocytes 1.7, Absolute Monocytes 1.0 H, Absolute Eosinophils 0.5, Absolute Basophils 0, PUBS MCHC 31.9 L 10/29/16 0430: Anion Gap 8, Estimated GFR > 60, BUN/Creatinine Ratio 28.2 H, CBC w Diff NO MAN DIFF REQ, RBC 4.68 L, MCV 95.3 H, MCH 30.5, RDW 18.0 H, MPV 9.4, Gran % 71.3, Lymphocytes % 14.0 L, Monocytes % 11.6 H, Eosinophils % 2.8, Basophils % 0.3, Absolute Granulocytes 6.8 H, Absolute Lymphocytes 1.3, Absolute Monocytes 1.1 H, Absolute Eosinophils 0.3, Absolute Basophils 0, PUBS MCHC 32.0 L Assessment/Plan Assessment/Plan The patient is somewhat improved but is still on high flow oxygen. I spoken to Dr. Gillette about his suitability for pacemaker. She feels he may need to be intubated for the procedure. I will ask anesthesia to evaluate him at this time and we will plan it for a day or [address] on what the anesthesia opinion is. Otherwise we will continue intensive respiratory treatment as per pulmonary. Continue telemetry? Yes
[2016-10-30 16:00] VITALS: BP 154/60
[2016-10-31] VITALS: BP 148/64
[2016-10-31 04:32] LABS: ABSOLUTE BASOPHIL COUNT 0 /CUMM (0.0-0.2); ABSOLUTE EOSINOPHIL COUNT 0.5 /CUMM (0.0-0.7); ABSOLUTE GRANULOCYTE CT 6.3 /CUMM (1.4-6.5); ABSOLUTE LYMPH COUNT 1.5 /CUMM (1.2-3.4); BASOPHIL % 0.4 % (0.0-2.0); EOSINOPHIL % 5.5 % (0-5); GRANULOCYTE % 67.3 % (42.2-75.2); MEAN CORPUSCULAR HGB CONC 31.8 G/DL (33.0-37.0); MEAN CORPUSCULAR VOLUME 94.4 FL (80.0-94.0); MEAN PLATELET VOLUME 9.7 FL (7.4-10.4); PLATELET COUNT 129 /CUMM (130-400); RBC DISTRIBUTION WIDTH 17.7 % (11.5-14.5); RED BLOOD CELL CT 4.76 /CUMM (4.70-6.10); WHITE BLOOD CELL COUNT 9.3 /CUMM (4.8-10.8)
[2016-10-31 04:35] LABS: PT 12.5 SEC (9.4-12.5); PTT 26 SEC (25-37)
--- NOTE | 2016-10-31 07:28 | PN- Resident CRCU ---
Subjective HPI/CRCU Issues: I saw and examined Mr. Overton today, he is on Bipap, slightly drowsy but wakes up when I call his name, he is oriented x3, reprots no issues overnight, no dizziness, no chest pain, palpitation, SOB. 24 Hour Events: Intake & Output 10/31 1600 10/31 0800 10/31 0000 Intake Total 890 Output Total 550 1420 Balance -550 -530 Intake, IV 130 Intake, Oral 760 Output, Urine 550 1420 Patient 175.54 kg Weight Vital Signs Date Time Temp Pulse Resp B/P Pulse O2 O2 Flow FiO2 Ox Delivery Rate 10/31 08 92 Nasal 45% Cannula 10/31 0806 111 92 10/31 0602 44 96 10/31 0400 94 BIPAP 45% 10/31 0336 42 95 10/31 0044 40 96 10/31 0000 97.8 42 30 148/64 96 BIPAP 45% 10/31 0000 97 BIPAP 45% 10/30 2240 42 95 10/30 2206 95 Nasal 45% Cannula 10/30 2138 44 156/70 10/30 2000 97 Nasal 50% Cannula 10/30 1700 38 153/61 10/30 1600 95 Nasal 35% Cannula 10/30 1600 97.9 40 30 154/60 96 Nasal 35% Cannula 10/30 1155 38 159/60 Intake & Output 10/31 1600 10/31 0800 10/31 0000 Intake Total 890 Output Total 550 1420 Balance -550 -530 Intake, IV 130 Intake, Oral 760 Output, Urine 550 1420 Patient 175.54 kg Weight Objective Vital Signs & I&O Last 8 Hrs of Vitals and I&O: T max 97.8 NE 34-40 BP 96/57 to 152/57 RR 30 I 1840 O 550 Exam General Appearance: no apparent distress, comfortable, obese Head: atraumatic, normal appearance Ears, Nose, Throat: normal ENT inspection Neck: normal inspection, supple Respiratory: chest non-tender, no respiratory distress Cardiovascular: regular rate/rhythm, bradycardia Gastrointestinal: soft, non-tender Extremities: normal inspection, normal capillary refill, normal range of motion, 2+ pitting edema, venous stasis skin changes and ulcer on lower extremities Cranial Nerves: normal speech, PERRL Skin: intact, normal color Current Medications: Current Medications Sig/Ji Start time Last Medication Dose Route Stop Time Status Admin Acetaminophen 650 MG Q8P PRN 10/27 1500 AC PO Albuterol Sulfate 3 ML Q4P PRN 10/27 1945 AC INH Aspirin Buffered 81 MG DAILY 10/28 1000 AC 10/30 PO 1156 Atorvastatin Calcium 20 MG 1700 10/27 1700 AC 10/30 PO 1700 Furosemide 40 MG 7:30 AM, & 4:30 PM 10/27 1900 AC 10/31 IV 0757 Heparin Sodium 5,000 UNIT Q8 10/27 2200 AC 10/30 (Porcine) SC 2138 Hydralazine HCl 25 MG TID 10/27 1600 AC 10/30 PO 2138 Levetiracetam 1,000 MG Q12 10/27 2200 AC 10/30 N/A 1 UNIT IV 2138 Lisinopril 40 MG DAILY 10/27 1600 AC 10/30 PO 1156 Nitroglycerin 0.4 MG DAILY 10/27 1548 AC 10/30 TOP 1156 Nystatin 1 SAM BID 10/27 2200 AC 10/30 TOP 2138 Potassium Chloride 20 MEQ BID 10/27 2200 AC 10/30 PO 2138 Impression/Plan Impression/Problem List Impression: Patient is a 66 year old gentleman with PMH of HTN, HLD, diastolic HF, COPD, DAGOBERTO , cardiac arrest during a recent admission at [facility] in Jun 2016, who was brought in to the ED due to hypoxia, cyanosis, 2 days of SOB at rest and orthopnea. Patient is also bradycardic since the previous admission in June and is supposed to have a pacemaker placed. Forte catheter day 5 Problem list and plan: Acute hypoxic hypercarbic respiratory failure - improved most likely due to CHF exacerbation currently on Bipap 45% SO2 overnight 94-96% * monitor Vital signs and O2 suppl as needed to keep SO2>92% * continue lasix 40 mg IV BID First degree AV block and bradycardia * patient is a candidate for a pacemaker, is NPO for the procedure tomorrow under general anesthesia * will be kept on monitor and recommend to keep pads on the chest and defibrillator at bedside (he goes to 2nd degree AVB, mobitz type 2) History of HTN, HLD, seizure disorder * continue home medications : keppra, statin, lisinopril Diet heart healthy diet DVT px heparin SC FULL CODE Problem List: 1. Bradycardia 2. First degree AV block Pain Ratin Tomorrow's Labs & Rationales: CBC (anemia), ICU bundle (monitor electrolytes) Plan DVT/Prophylaxis: pharmacological
[2016-10-31 08:00] VITALS: BP 124/72
--- NOTE | 2016-10-31 08:06 | PN- CRCU ---
Subjective HPI/Critical Care Issues: The patient remains on Bipap, with an FiO2 requirement of 45% which has improved. His urine output has decreased over the past shift, although it remains adequate. He reports feeling better overall. He reports feeling less short of breath. He has no chest pain, abdominal pain, fever or chills. Overall he continues to feel that he is improving. He is awaiting pacemaker placement which is tentatively scheduled for tomorrow. Objective Current Medications: Current Medications Sig/Ji Start time Last Medication Dose Route Stop Time Status Admin Acetaminophen 650 MG Q8P PRN 10/27 1500 AC PO Albuterol Sulfate 3 ML Q4P PRN 10/27 1945 AC INH Aspirin Buffered 81 MG DAILY 10/28 1000 AC 10/30 PO 1156 Atorvastatin Calcium 20 MG 1700 10/27 1700 AC 10/30 PO 1700 Furosemide 40 MG 7:30 AM, & 4:30 PM 10/27 1900 AC 10/30 IV 1702 Heparin Sodium 5,000 UNIT Q8 10/27 2200 AC 10/30 (Porcine) SC 2138 Hydralazine HCl 25 MG TID 10/27 1600 AC 10/30 PO 2138 Levetiracetam 1,000 MG Q12 10/27 2200 AC 10/30 N/A 1 UNIT IV 2138 Lisinopril 40 MG DAILY 10/27 1600 AC 10/30 PO 1156 Nitroglycerin 0.4 MG DAILY 10/27 1548 AC 10/30 TOP 1156 Nystatin 1 SAM BID 10/27 2200 AC 10/30 TOP 2138 Potassium Chloride 20 MEQ BID 10/27 2200 AC 10/30 PO 2138 Vital Signs & I&O Last 24 Hrs of Vitals and I&O: Vital Signs Date Time Temp Pulse Resp B/P Pulse O2 O2 Flow FiO2 Ox Delivery Rate 10/31 0602 44 96 10/31 0400 94 BIPAP 45% 10/31 0336 42 95 10/31 0044 40 96 10/31 0000 97.8 42 30 148/64 96 BIPAP 45% 10/31 0000 97 BIPAP 45% 10/30 2240 42 95 10/30 2206 95 Nasal 45% Cannula 10/30 2138 44 156/70 10/30 2000 97 Nasal 50% Cannula 10/30 1700 38 153/61 10/30 1600 95 Nasal 35% Cannula 10/30 1600 97.9 40 30 154/60 96 Nasal 35% Cannula 10/30 1155 38 159/60 10/30 0816 96 Nasal 55% Cannula 10/30 0807 40 98 10/30 0800 100 Nasal 55% Cannula 10/30 0800 97.4 38 30 136/70 100 Nasal 55% Cannula Intake & Output 10/31 0800 10/31 0000 10/30 1600 Intake Total 890 1000 Output Total 550 1420 1460 Balance -550 -530 -460 Intake, IV 130 200 Intake, Oral 760 800 Number 1 Bowel Movements Output, Urine 550 1420 1460 Patient 387 lb 387 lb Weight Physical Exam General Appearance Alert and oriented, no distress, on BIPAP Skin hyperpigmentationand hyperkeratosis due to venous stasis HEENT Atraumatic Neck Supple Cardiovascular Regular Rate, Bradycardia, No Murmurs, distant heart sounds Lungs Decreased breath sounds, scattered rhonchi and crackles Abdomen Soft, No Tenderness, obese Extremities 4+ pitting edema on lower extremities Results Last 24 Hrs of Lab Results: Laboratory Tests 10/31/16 0345: Anion Gap 9, Estimated GFR > 60, Glucose 99, Calcium 8.5, Phosphorus 4.7 H, Magnesium 2.2, Total Bilirubin 1.4 H, AST 23, ALT 38, Albumin 3.2 L, PT 12.5, INR 1.19 H, APTT 26, CBC w Diff NO MAN DIFF REQ, RBC 4.76, MCV 94.4 H, MCH 30.0, RDW 17.7 H, MPV 9.7, Gran % 67.3, Lymphocytes % 15.7 L, Monocytes % 11.1 H, Eosinophils % 5.5 H, Basophils % 0.4, Absolute Granulocytes 6.3, Absolute Lymphocytes 1.5, Absolute Monocytes 1.0 H, Absolute Eosinophils 0.5, Absolute Basophils 0, PUBS MCHC 31.8 L Impression/Plan Impression/Plan Impression/Plan: 1. Acute hypoxemic respiratory failure, secondary to acute HFpEF. Pneumonia less likely. 2. Underlying heart block, for pacemaker placement. 3. History of COPD, no evidence of bronchospasm at present. 4. Obesity hypoventilation/uncontrolled DAGOBERTO. Chronic hypercarbic respiratory failure. 5. Chronic venous stasis/lower extremity edema. 6. Minimally elevated troponin. 7. Hypertension. 8. Hyperlipidemia. Recommendations: * Continue nocturnal BiPAP. * Continue nebs/TRC. * Continue high flow oxygen during the day. * Await pacemaker placement. * Diuresis as recommended by cardiology. Monitor strict I & Os, continue rocha. * Continue medication for blood pressure control. * Monitor off antibiotics for now. * Will continue to monitor culture data. * DVT prophylaxis at all times. * Continue all supportive care.
--- NOTE | 2016-10-31 09:54 | PN- Cardiology ---
Subjective Subjective: The patient is in no distress today. He remains on high flow oxygen. He is in sinus rhythm with second-degree heart block with a heart rate in the high 40s. He was evaluated by anesthesia yesterday who suggested that he should be intubated and given general anesthesia for his pacemaker. I will plan that for tomorrow. Objective Vital Signs and I&Os Vital Signs Date Time Temp Pulse Resp B/P Pulse O2 O2 Flow FiO2 Ox Delivery Rate 10/31 0949 53 128/52 10/31 0949 53 128/52 10/31 0806 92 Nasal 45% Cannula 10/31 0806 111 92 10/31 0602 44 96 10/31 0400 94 BIPAP 45% 10/31 0336 42 95 10/31 0044 40 96 10/31 0000 97.8 42 30 148/64 96 BIPAP 45% 10/31 0000 97 BIPAP 45% 10/30 2240 42 95 10/30 2206 95 Nasal 45% Cannula 10/30 2138 44 156/70 10/30 2000 97 Nasal 50% Cannula 10/30 1700 38 153/61 10/30 1600 95 Nasal 35% Cannula 10/30 1600 97.9 40 30 154/60 96 Nasal 35% Cannula 10/30 1155 38 159/60 Intake & Output 10/31 1600 10/31 0800 10/31 0000 10/30 1600 10/30 0800 10/30 0000 Intake Total 890 1000 1260 Output Total 550 1420 8108 225 3245 Balance -550 -530 -460 -520 -390 Intake, IV 130 200 100 Intake, Oral 922 232 5805 Number 1 Bowel Movements Output, Urine 550 1420 2166 103 5340 Patient 387 lb 387 lb 388 lb Weight Physical Exam: He is in no distress HEENT exam is grossly normal Chest reveals decreased breath sounds Heart reveals soft heart sounds with mild bradycardia Extremities reveal resolving edema and no acute lesions Current Medications: Current Medications Sig/Ji Start time Last Medication Dose Route Stop Time Status Admin Acetaminophen 650 MG Q8P PRN 10/27 1500 AC PO Albuterol Sulfate 3 ML Q4P PRN 10/27 1945 AC INH Aspirin Buffered 81 MG DAILY 10/28 1000 AC 10/31 PO 0949 Atorvastatin Calcium 20 MG 1700 10/27 1700 AC 10/30 PO 1700 Furosemide 40 MG 7:30 AM, & 4:30 PM 10/27 1900 AC 10/31 IV 0757 Heparin Sodium 5,000 UNIT Q8 10/27 2199 AC 10/30 (Porcine) SC 2138 Hydralazine HCl 25 MG TID 10/27 1600 AC 10/31 PO 0949 Levetiracetam 1,000 MG Q12 10/27 2199 AC 10/31 N/A 1 UNIT IV 0948 Lisinopril 40 MG DAILY 10/27 1600 AC 10/31 PO 0949 Nitroglycerin 0.4 MG DAILY 10/27 1548 AC 10/31 TOP 0948 Nystatin 1 SAM BID 10/27 220 AC 10/31 TOP 0949 Potassium Chloride 20 MEQ BID 10/27 2199 AC 10/31 PO 0949 Results Last 48 Hrs of Labs/Mics: Laboratory Tests 10/31/16 0345: Anion Gap 9, Estimated GFR > 60, Glucose 99, Calcium 8.5, Phosphorus 4.7 H, Magnesium 2.2, Total Bilirubin 1.4 H, AST 23, ALT 38, Albumin 3.2 L, PT 12.5, INR 1.19 H, APTT 26, CBC w Diff NO MAN DIFF REQ, RBC 4.76, MCV 94.4 H, MCH 30.0, RDW 17.7 H, MPV 9.7, Gran % 67.3, Lymphocytes % 15.7 L, Monocytes % 11.1 H, Eosinophils % 5.5 H, Basophils % 0.4, Absolute Granulocytes 6.3, Absolute Lymphocytes 1.5, Absolute Monocytes 1.0 H, Absolute Eosinophils 0.5, Absolute Basophils 0, PUBS MCHC 31.8 L 10/30/16 0330: Anion Gap 7, Estimated GFR > 60, Glucose 80, Calcium 7.9 L, Phosphorus 4.4, Magnesium 2.3, Total Bilirubin 1.3, AST 19, ALT 36, Troponin I 0.12 *H, Albumin 2.9 L, CBC w Diff NO MAN DIFF REQ, RBC 4.56 L, MCV 94.7 H, MCH 30.2, RDW 17.9 H, MPV 9.9, Gran % 65.5, Lymphocytes % 18.5 L, Monocytes % 10.8 H, Eosinophils % 5.0, Basophils % 0.2, Absolute Granulocytes 6.1, Absolute Lymphocytes 1.7, Absolute Monocytes 1.0 H, Absolute Eosinophils 0.5, Absolute Basophils 0, PUBS MCHC 31.9 L Plan Assessment/Plan The patient is somewhat improved but is still on high flow oxygen. we will plan him for a pacemaker tomorrow. As noted this will be done under general anesthesia because of his tenuous pulmonary status. Otherwise I would continue the same medications for now. Continue telemetry? Yes
[2016-10-31 12:00] VITALS: BP 142/68
[2016-10-31 16:00] VITALS: BP 130/70
[2016-11-01] VITALS: BP 124/60
[2016-11-01 03:44] LABS: ABSOLUTE BASOPHIL COUNT 0 /CUMM (0.0-0.2); ABSOLUTE EOSINOPHIL COUNT 0.6 /CUMM (0.0-0.7); ABSOLUTE GRANULOCYTE CT 5.4 /CUMM (1.4-6.5); ABSOLUTE LYMPH COUNT 1.8 /CUMM (1.2-3.4); BASOPHIL % 0.5 % (0.0-2.0); EOSINOPHIL % 6.4 % (0-5); GRANULOCYTE % 61.2 % (42.2-75.2); HEMATOCRIT 46.5 % (42-52); MEAN CORPUSCULAR HGB 30.3 PG (27.0-31.0); MEAN CORPUSCULAR HGB CONC 32.1 G/DL (33.0-37.0); MEAN CORPUSCULAR VOLUME 94.4 FL (80.0-94.0); MEAN PLATELET VOLUME 9.2 FL (7.4-10.4); PLATELET COUNT 129 /CUMM (130-400); RBC DISTRIBUTION WIDTH 18.1 % (11.5-14.5); RED BLOOD CELL CT 4.92 /CUMM (4.70-6.10); WHITE BLOOD CELL COUNT 8.8 /CUMM (4.8-10.8)
--- NOTE | 2016-11-01 07:31 | PN- Resident CRCU ---
Subjective HPI/CRCU Issues: CRCU issues: 1. Acute hypoxic respiratory failure due to CHF exacerbation 2. Bradycardia and with heart block 3. DAGOBERTO, hisotory of COPD 4. HTN, HLD I saw and examined Mr. Weaver today, he is awake and oriented in no distress, he is on Oxygen through NC. Reports improvement of shortness of breath and leg swelling. awaiting pacemaker placement. 24 Hour Events: Reports no issues overnight, no dizziness, no chest pain, palpitation, SOB. Vital Signs Date Time Temp Pulse Resp B/P B/P Pulse O2 O2 Flow FiO2 Mean Ox Delivery Rate 11/01 821 95 Nasal 3.0L Cannula 11/01 08 39 95 11/01 0800 BIPAP 45% 11/01 08 97.2 43 20 130/70 99 BIPAP 45% 11/01 0620 35 97 11/01 0323 38 97 11/01 0301 97 BIPAP 45% Intake & Output 11/01 1600 Intake Total Output Total Balance Patient 167.376 kg Weight Weight Bed scale Measurement Method Objective Vital Signs & I&O Last 8 Hrs of Vitals and I&O: Intake & Output 11/01 1600 Intake Total 0 Output Total 600 Balance Patient 167.376 kg Weight Weight Bed scale Measurement Method Max Temp 97.9 HR 36-38 1st degree AVB RR 30 BP 108/48 to 135/53 Bipap 18/8 Fio2 45%, 93-100% Exam General Appearance: no apparent distress, alert, awake, comfortable, obese Head: atraumatic Ears, Nose, Throat: normal ENT inspection Neck: normal inspection, supple Respiratory: chest non-tender, decresed breath sounds, no wheezing or rhonchi appreciated Cardiovascular: regular rate/rhythm Gastrointestinal: soft, non-tender Extremities: 1+ pitting edema, chronic venous stasis ulcer, the skin is dry, there is a 1x1 stge 1 ulcer on the medial right lower calf. Cranial Nerves: normal speech, PERRL Forte Date In: 10/27/16 Current Medications: Current Medications Sig/Ji Start time Last Medication Dose Route Stop Time Status Admin Acetaminophen 650 MG .STK-MED ONE 10/31 2216 DC PO 10/31 2217 Acetaminophen 650 MG Q8P PRN 10/27 1500 AC 10/31 PO 2250 Albuterol Sulfate 3 ML Q4P PRN 10/27 194 AC INH Aspirin Buffered 81 MG DAILY 10/28 1000 AC 10/31 PO 0949 Atorvastatin Calcium 20 MG 1700 10/27 1700 AC 10/31 PO 1653 Furosemide 40 MG 7:30 AM, & 4:30 PM 10/27 1900 AC 11/01 IV 0631 Heparin Sodium 5,000 UNIT Q8 10/27 2199 AC 11/01 (Porcine) SC 0630 Hydralazine HCl 25 MG TID 10/27 1600 AC 10/31 PO 2208 Levetiracetam 1,000 MG Q12 10/27 2199 AC 11/01 N/A 1 UNIT IV 0957 Lisinopril 40 MG DAILY 10/27 1600 AC 10/31 PO 0949 Nitroglycerin 0.4 MG DAILY 10/27 1548 AC 10/31 TOP 0948 Nystatin 1 SAM BID 10/27 2199 AC 11/01 TOP 0957 Potassium Chloride 20 MEQ BID 10/27 2199 AC 10/31 PO 2208 Impression/Plan Impression/Problem List Impression: Patient is a 66 year old gentleman with PMH of HTN, HLD, diastolic HF, COPD, DAGOBERTO , cardiac arrest during a recent admission at [facility] in Jun 2016, who was brought in to the ED due to hypoxia, cyanosis, 2 days of SOB at rest and orthopnea. Patient is also bradycardic since the previous admission in June and is supposed to have a pacemaker placed. Forte catheter day 6 Problem list and plan: Acute hypoxic hypercarbic respiratory failure - improved most likely due to CHF exacerbation currently on 6L (was on bipap intially, then high flow NC till yesterday during the day), uses bipap at night * monitor Vital signs and O2 suppl as needed to keep SO2>92% * continue lasix 40 mg IV BID First degree AV block and bradycardia * patient is a candidate for a pacemaker, is NPO for the procedure today under general anesthesia * will be kept on monitor and recommend to keep pads on the chest and defibrillator at bedside (he goes to 2nd degree AVB, mobitz type 2) Chronic venous stasis ulcers dry 3x6 cm stage 1 ulcer on the left lower extremity and 1x1 ulcer on the right lower ext * wound consult placed * dressing with xerform and kerlix History of HTN, HLD, seizure disorder * continue home medications: keppra, statin, lisinopril Diet heart healthy diet DVT px heparin SC FULL CODE Problem List: 1. First degree AV block 2. Bradycardia 3. Respiratory failure 4. COPD (chronic obstructive pulmonary disease) 5. Obesity hypoventilation syndrome Pain Ratin Tomorrow's Labs & Rationales: ICU bundle (monitor electrolytes) Plan DVT/Prophylaxis: pharmacological
[2016-11-01 08:00] VITALS: BP 130/70
--- NOTE | 2016-11-01 08:26 | PN- CRCU ---
Subjective HPI/Critical Care Issues: The patient is awake and alert. He reports feeling significantly improved. The patient's oxygenation has also improved, noting he was on 3 L nasal cannula yesterday evening with saturations in the mid to high 90s. His to tolerate nocturnal BiPAP. He feels his shortness of breath is less. He has no increased cough, chest pain, sputum production, abdominal pain or any other associated complaints. He continues to have excellent urine output. There were no overnight events reported. The patient is afebrile, and hemodynamically stable. Objective Current Medications: Current Medications Sig/Ji Start time Last Medication Dose Route Stop Time Status Admin Acetaminophen 650 MG .STK-MED ONE 10/31 2216 DC PO 10/31 221 Acetaminophen 650 MG Q8P PRN 10/27 1500 AC 10/31 PO 2250 Albuterol Sulfate 3 ML Q4P PRN 10/27 1945 AC INH Aspirin Buffered 81 MG DAILY 10/28 1000 AC 10/31 PO 0949 Atorvastatin Calcium 20 MG 1700 10/27 1700 AC 10/31 PO 1653 Furosemide 40 MG 7:30 AM, & 4:30 PM 10/27 1900 AC 11/01 IV 0631 Heparin Sodium 5,000 UNIT Q8 10/27 2200 AC 11/01 (Porcine) SC 0630 Hydralazine HCl 25 MG TID 10/27 1600 AC 10/31 PO 2208 Levetiracetam 1,000 MG Q12 10/27 2200 AC 10/31 N/A 1 UNIT IV 2208 Lisinopril 40 MG DAILY 10/27 1600 AC 10/31 PO 0949 Nitroglycerin 0.4 MG DAILY 10/27 1548 AC 10/31 TOP 0948 Nystatin 1 SAM BID 10/27 2200 AC 10/31 TOP 2208 Potassium Chloride 20 MEQ BID 10/27 2200 AC 10/31 PO 2208 Vital Signs & I&O Last 24 Hrs of Vitals and I&O: Vital Signs Date Time Temp Pulse Resp B/P B/P Pulse O2 O2 Flow FiO2 Mean Ox Delivery Rate 11/01 0822 95 Nasal 3.0L Cannula 11/01 0822 39 95 11/01 0620 35 97 11/01 0323 38 97 11/01 0301 97 BIPAP 45% 11/01 0210 36 96 11/01 0000 97.9 42 30 124/60 98 BIPAP 45% 11/01 0000 98 BIPAP 45% 10/31 2352 41 98 10/31 2208 40 124/60 11/01 1999 99 Nasal 3.0L Cannula 10/31 1910 97 Nasal 40% Cannula 10/31 1653 44 126/46 10/31 1600 94 Nasal 40% Cannula 10/31 1600 98.5 40 22 130/70 94 Nasal 40% Cannula 10/31 1200 99 Nasal 45% Cannula 10/31 1200 98.8 42 20 142/68 99 Nasal 45% Cannula 10/31 0949 53 128/52 10/31 0949 53 128/52 Intake & Output 11/01 1600 11/01 0800 11/01 0000 Intake Total 1114 Output Total 600 2450 Balance -600 -1336 Intake, IV 154 Intake, Oral 960 Output, Urine 600 2450 Physical Exam General Appearance Alert and oriented, no distress, on BIPAP Skin hyperpigmentationand hyperkeratosis due to venous stasis HEENT Atraumatic Neck Supple Cardiovascular Regular Rate, Bradycardia, No Murmurs, distant heart sounds Lungs Decreased breath sounds, scattered rhonchi and crackles Abdomen Soft, No Tenderness, obese Extremities pitting edema on lower extremities Results Last 24 Hrs of Lab Results: Laboratory Tests 11/01/16 0315: Anion Gap 8, Estimated GFR > 60, Glucose 109 H, Calcium 8.3 L, Phosphorus 4.2, Magnesium 2.1, Total Bilirubin 1.2, AST 25, ALT 34, Albumin 3.3 L, CBC w Diff NO MAN DIFF REQ, RBC 4.92, MCV 94.4 H, MCH 30.3, RDW 18.1 H, MPV 9.2, Gran % 61.2, Lymphocytes % 20.6, Monocytes % 11.3 H, Eosinophils % 6.4 H, Basophils % 0.5, Absolute Granulocytes 5.4, Absolute Lymphocytes 1.8, Absolute Monocytes 1.0 H, Absolute Eosinophils 0.6, Absolute Basophils 0, PUBS MCHC 32.1 L Impression/Plan Impression/Plan Impression/Plan: 1. Acute hypoxemic respiratory failure, secondary to acute HFpEF. Pneumonia less likely. 2. Underlying heart block, for pacemaker placement. 3. History of COPD, no evidence of bronchospasm at present. 4. Obesity hypoventilation/uncontrolled DAGOBERTO. Chronic hypercarbic respiratory failure. 5. Chronic venous stasis/lower extremity edema. 6. Minimally elevated troponin. 7. Hypertension. 8. Hyperlipidemia. Recommendations: * Check a chest x-ray this morning prior to going to the OR. * Continue to wean supplemental oxygen down, to maintain saturations greater than 92%. * Continue nocturnal BiPAP. * Continue nebs/TRC. * Await pacemaker placement which is scheduled for later today. I discussed this with the patient at length. He is aware that anesthesia is considering intubation with general anesthesia. He is also aware this may result in a prolonged course of mechanical ventilation in the intensive care unit post procedure. The patient understands and is agreeable to proceed. * Diuresis as recommended by cardiology. Monitor strict I & Os, continue rocha. * Continue medication for blood pressure control. * Monitor off antibiotics. * DVT prophylaxis at all times. * Continue all supportive care.
--- NOTE | 2016-11-01 09:52 | PN- Wound Care ---
Subjective Subjective: Patient is comfortable awaiting pacemaker placement. Continues to have some degree of lower extremity edema. There are multiple lower extremity venous stasis ulcers which were present on admission. Objective Vital Signs and I&Os Vital Signs Result Date Time Pulse Ox 95 11/01 821 O2 Delivery Nasal Cannula 11/01 821 O2 Flow Rate 3.0L 11/01 821 Pulse 39 11/01 821 B/P 130/70 11/01 08 Temp 97.2 11/01 0800 Resp 20 11/01 08 Intake & Output 11/01 0000 10/31 1600 10/31 08 Intake Total 1114 1100 Output Total 2450 2150 550 Balance -1336 -1050 -550 Intake, IV 154 140 Intake, Oral 960 960 Number 0 Bowel Movements Output, Urine 2450 2150 550 Patient 387 lb Weight The left leg shows there to be 3 venous stasis ulcers measuring approximately 2.5 x 2 cm and 0.5 x 1 cm these are dry without drainage there is a thin yellow slough the right lower extremity shows there to be a small approximately 1 x 0.5 cm ulcer with red fill Impression/Plan Impression/Plan Impression/Plan: T6-year-old gentleman morbidly obese history of chronic edema and venous insufficiency has bilateral venous stasis ulcers present on admission. Elevate his legs to the extent feasible wound care is Xeroform and gauze dressings with daily cleansing
--- NOTE | 2016-11-01 12:08 | RADIOLOGY REPORT ---
EXAMINATION: XR PORTABLE CHEST CLINICAL INFORMATION: Shortness of breath which is improving. COMPARISON: 10/27/2016 TECHNIQUE: Portable AP view of the chest was obtained. FINDINGS: Cardiac leads overlie the chest. Low lung volumes. Central vascular prominence without overt edema. No significant pleural effusion is visualized. No dense consolidation. This may be obscured by the low lung volumes, although mild improvement from prior CT is suggested. No pneumothorax. The cardiomediastinal silhouette remains prominent. IMPRESSION: Central vascular prominence without overt edema. No significant pleural effusion visualized, although low lung volumes limit the evaluation.
--- NOTE | 2016-11-01 16:36 | RADIOLOGY REPORT ---
EXAMINATION: XR PORTABLE CHEST CLINICAL INFORMATION: Status post pacer placement COMPARISON: Same day film TECHNIQUE: Portable AP view of the chest was obtained. FINDINGS: Pacer leads cannot adequately visualized here. Recommend a low chest film. There is felt to be increasing vascular congestion/CHF here. There is no evidence for pneumothorax. IMPRESSION: There is no pneumothorax however the distal leads cannot be adequately localized on this exposure. Recommend lower shot film. Findings suggest early CHF
[2016-11-01 17:00] VITALS: BP 138/60
[2016-11-01 18:00] VITALS: BP 138/60
--- NOTE | 2016-11-01 18:22 | Event Note ---
Event Note Event Note: S: Mr. Weaver has recently come back from placement of pacemaker. He has currently been stable however his heart rate seems to be labile and fluctuating from the low 70s to the low 120s. Rhythm strip is also showing periodic pauses. B: The instructional leader insulation hoseman Dr Wakefield was paged. Patient is asymptomatic. He is comfortable in bed. He endorses no pain or discomfort. On-call physician Dr. Wakefield called back the ICU and was informed of the above concerns. An EKG has also been done. A/R: Dr Lang Wakefield MD recommended that the patient be started on Lopressor 25 mg by mouth BID. Overnight should the patient become symptomatic or hemodynamically unstable please inform Dr. Wakefield again. Dr Wakefield will have the pacemaker interrogated in the AM.
[2016-11-02] VITALS: BP 104/70
[2016-11-02 05:24] LABS: ABSOLUTE BASOPHIL COUNT 0 /CUMM (0.0-0.2); ABSOLUTE EOSINOPHIL COUNT 0 /CUMM (0.0-0.7); ABSOLUTE GRANULOCYTE CT 8.6 /CUMM (1.4-6.5); ABSOLUTE LYMPH COUNT 0.8 /CUMM (1.2-3.4); ABSOLUTE MONOCYTE COUNT 0.5 /CUMM (0.10-0.60); BASOPHIL % 0.3 % (0.0-2.0); EOSINOPHIL % 0.5 % (0-5); GRANULOCYTE % 85.7 % (42.2-75.2); HEMATOCRIT 46.8 % (42-52); MEAN CORPUSCULAR HGB 30.3 PG (27.0-31.0); MEAN CORPUSCULAR HGB CONC 32.2 G/DL (33.0-37.0); MEAN PLATELET VOLUME 9.1 FL (7.4-10.4); PLATELET COUNT 135 /CUMM (130-400); RBC DISTRIBUTION WIDTH 16.9 % (11.5-14.5); RED BLOOD CELL CT 4.97 /CUMM (4.70-6.10)
--- NOTE | 2016-11-02 07:15 | PN- Resident CRCU ---
Subjective HPI/CRCU Issues: CRCU issues: 1. Acute hypoxic respiratory failure due to CHF exacerbation 2. Bradycardia and heart block (1st and going into second degree - type 1 and 2, s/p pacemaker placement) 3. DAGOBERTO, hisotory of COPD 4. HTN, HLD 24 Hour Events: Patient had pacemaker placed yesterday, he had fluctuating heart rate overnight with episodes of tachycardia and bradycardia, however was asymptomatic and reports increased energy and feeling much better. Breathing is also improved and denies any episodes of sOB, denies dizziness or chest pain, denies pain or discomfort at the site of the pacemaker. Objective Vital Signs & I&O Last 8 Hrs of Vitals and I&O: T max 98.1 DC 62-89/ paced RR 24-30 BP 120/56 to 169/54 I 600 cc O 785 cc Exam General Appearance: no apparent distress, alert, awake, comfortable, obese Head: atraumatic, normal appearance Ears, Nose, Throat: normal ENT inspection Neck: normal inspection, supple Respiratory: normal breath sounds, chest non-tender, no respiratory distress, quiet respiration Cardiovascular: regular rate/rhythm Gastrointestinal: soft, non-tender Extremities: normal capillary refill, normal range of motion, swelling of the right hand Cranial Nerves: normal speech, PERRL Skin: warm/dry, venous stasis changes o the lower extremities b/l, ,there is a dry wound 3x4 on the left lower leg, there is a small 1x1 cm stage 1 on the medial right lower leg. Back: normal range of motion Current Medications: Current Medications Sig/Ji Start time Last Medication Dose Route Stop Time Status Admin Acetaminophen 650 MG Q8P PRN 10/27 1500 AC 11/02 PO 1152 Albuterol Sulfate 3 ML Q4P PRN 10/27 1945 AC INH Aspirin Buffered 81 MG DAILY 10/28 1000 AC 11/02 PO 1254 Atorvastatin Calcium 20 MG 1700 10/27 1700 AC 11/01 PO 1736 Cefazolin Sodium 3,000 MG 0600,0 11/01 220 DC 11/02 Sodium Chloride 100 ML IV 11/02 0629 0601 Docusate Sodium 100 MG BID 11/02 1000 AC 11/02 PO 1141 Furosemide 40 MG 7:30 AM, & 4:30 PM 10/27 1900 AC 11/02 IV 0703 Heparin Sodium 5,000 UNIT Q8 04/2199 DC 11/01 (Porcine) NV 2207 Hydralazine HCl 25 MG TID 10/27 1600 AC 11/02 PO 1142 Levetiracetam 1,000 MG BID 11/02 1144 AC PO Levetiracetam 1,000 MG Q12 10/27 2199 DC 11/01 N/A 1 UNIT IV 2154 Lisinopril 40 MG DAILY 10/27 1600 AC 11/01 PO 1736 Metoprolol Tartrate 25 MG BID 11/01 2199 AC 11/02 PO 1142 Nitroglycerin 0.4 MG DAILY 10/27 1548 AC 11/02 TOP 1254 Nystatin 1 SAM BID 10/27 220 AC 11/02 TOP 1142 Potassium Chloride 20 MEQ BID 10/27 2199 AC 11/01 PO 220 Impression/Plan Impression/Problem List Impression: Patient is a 66 year old gentleman with PMH of HTN, HLD, diastolic HF, COPD, DAGOBERTO , cardiac arrest during a recent admission at [facility] in Jun 2016, who was brought in to the ED due to hypoxia, cyanosis, 2 days of SOB at rest and orthopnea. Patient is also bradycardic since the previous admission in June and is supposed to have a pacemaker placed. Forte catheter day 6 - discontiued Problem list and plan: Right arm swelling started this pm * RUE venuos doppler to rule out DVT Acute hypoxic hypercarbic respiratory failure - improved most likely due to CHF exacerbation currently down to 4L NC (was on bipap initially, then high flow NC till 10/31/16) , uses bipap at night * monitor Vital signs and O2 suppl as needed to keep SO2>92% * continue lasix 40 mg IV BID, will consider to switch to PO lasix First degree AV block and bradycardia Went to second degree mobitz I and II in the serial EKGs - s/p pacemaker yesterday on 11/01/16 * due for interrogation this am * repeat xray with better penetration to visualize the leads: 1. Right atrial and right ventricular pacer leads in place. 2. Bilateral small pleural effusions and associated bilateral lower lung consolidation/atelectasis. * stable to go to [facility] Chronic venous stasis ulcers dry 3x4 cm stage 1 ulcer on the left lower extremity and 1x1 ulcer on the right lower ext * wound consult in place * daily change of dressing with xeroform and kerlix History of HTN, HLD, seizure disorder * continue home medications: keppra switched from IV to PO, statin, lisinopril Heart healthy diet Mild pain pathway DVT px heparin SC FULL CODE Problem List: 1. Bradycardia 2. First degree AV block 3. Second degree AV block, Mobitz type II 4. Acute exacerbation of CHF (congestive heart failure) 5. Respiratory failure 6. Obesity hypoventilation syndrome 7. Status post placement of cardiac pacemaker Pain Ratin Tomorrow's Labs & Rationales: BEP and Mg (monitor electrolytes) Plan DVT/Prophylaxis: pharmacological
[2016-11-02 08:00] VITALS: BP 144/64
--- NOTE | 2016-11-02 08:36 | PN- CRCU ---
Subjective HPI/Critical Care Issues: The patient is awake and alert. He did not require intubation or mechanical ventilation during pacemaker placement. He reports feeling significantly improved. He feels less short of breath. He has no cough or chest pain. He denies abdominal pain. The patient remains on 4 L nasal cannula with an oxygen saturation of 95%. His vital signs remained stable. Objective Current Medications: Current Medications Sig/Ji Start time Last Medication Dose Route Stop Time Status Admin Acetaminophen 1,000 MG .STK-MED ONE 11/01 1402 DC IV 11/01 1403 Acetaminophen 650 MG Q8P PRN 10/27 1500 AC 10/31 PO 2250 Albuterol Sulfate 3 ML Q4P PRN 10/27 1945 AC INH Aspirin Buffered 81 MG DAILY 10/28 1000 AC 11/01 PO 1736 Atorvastatin Calcium 20 MG 1700 10/27 1700 AC 11/01 PO 1736 Cefazolin Sodium 3,000 MG 0600,2200 11/01 2200 DC 11/02 Sodium Chloride 100 ML IV 11/02 0629 0601 Dexamethasone 4 MG .STK-MED ONE 11/01 1403 DC IM 11/01 1404 Fentanyl Citrate 100 MCG .STK-MED ONE 11/01 1402 DC IM 11/01 1403 Furosemide 40 MG 7:30 AM, & 4:30 PM 10/27 1900 AC 11/02 IV 0703 Heparin Sodium 5,000 UNIT Q8 10/27 2200 DC 11/01 (Porcine) SC 2207 Hydralazine HCl 25 MG TID 10/27 1600 AC 11/01 PO 2207 Ketamine HCl 50 MG .STK-MED ONE 11/01 1403 DC IM 11/01 1404 Levetiracetam 1,000 MG Q12 10/27 2200 AC 11/01 N/A 1 UNIT IV 2154 Lisinopril 40 MG DAILY 10/27 1600 AC 11/01 PO 1736 Metoprolol Tartrate 25 MG BID 11/01 2200 AC PO Midazolam HCl 2 MG .STK-MED ONE 11/01 1403 DC IM 11/01 1404 Nitroglycerin 0.4 MG DAILY 10/27 1548 AC 11/01 TOP 1737 Nystatin 1 SAM BID 10/27 2200 AC 11/01 TOP 2208 Ondansetron HCl 8 MG .STK-MED ONE 11/01 1403 DC IM 11/01 1404 Potassium Chloride 20 MEQ BID 10/27 2199 AC 11/01 PO 2207 Vital Signs & I&O Last 24 Hrs of Vitals and I&O: Vital Signs Date Time Temp Pulse Resp B/P B/P Pulse O2 O2 Flow FiO2 Mean Ox Delivery Rate 11/02 0527 65 97 11/02 0400 96 BIPAP 45% 11/02 0322 80 97 11/02 0020 63 98 11/02 0000 98.1 63 24 104/70 93 BIPAP 45% 11/02 0000 93 BIPAP 45% 11/01 2244 60 95 11/01 2210 97.7 88 24 163/66 11/01 2207 97.7 88 24 163/66 11/02 1999 92 Nasal 4.0L Cannula 11/01 1918 93 Nasal 4.0L Cannula 11/01 1736 93 127/59 11/01 1736 93 127/59 11/01 1700 98.3 92 22 138/60 91 Nasal 4.0L Cannula 11/01 1700 91 Nasal 4.0L Cannula 11/01 1200 96 Nasal 6.0L Cannula 11/01 1100 42 117/65 Intake & Output 11/02 1600 11/02 0800 11/02 0000 Intake Total 600 600 Output Total 785 3100 Balance -185 -2500 Intake, IV 100 150 Intake, Oral 500 450 Output, Urine 785 3100 Patient 371 lb Weight Physical Exam General Appearance Alert and oriented, no distress, on nasal cannula Skin hyperpigmentationand hyperkeratosis due to venous stasis HEENT Atraumatic Neck Supple Cardiovascular Regular Rate, Bradycardia, No Murmurs, distant heart sounds Lungs Decreased breath sounds, scattered rhonchi and crackles Abdomen Soft, No Tenderness, obese Extremities pitting edema on lower extremities Results Last 24 Hrs of Lab Results: Laboratory Tests 11/02/16 0505: Anion Gap 10, Estimated GFR > 60, Glucose 139 H, Calcium 8.3 L, Phosphorus 3.7 , Magnesium 2.1, Total Bilirubin 1.0, AST 33, ALT 37, Albumin 3.4 L, CBC w Diff NO MAN DIFF REQ, RBC 4.97, MCV 94.0, MCH 30.3, RDW 16.9 H, MPV 9.1, Gran % 85.7 H, Lymphocytes % 8.0 L, Monocytes % 5.5, Eosinophils % 0.5, Basophils % 0.3, Absolute Granulocytes 8.6 H, Absolute Lymphocytes 0.8 L, Absolute Monocytes 0.5, Absolute Eosinophils 0, Absolute Basophils 0, PUBS MCHC 32.2 L Diagnostic Data CXR Findings: There is no pneumothorax however the distal leads cannot be adequately localized on this exposure. Recommend lower shot film. Findings suggest early CHF Impression/Plan Impression/Plan Impression/Plan: 1. Acute hypoxemic respiratory failure, secondary to acute HFpEF, significantly improved. 2. Underlying heart block, s/p dual chamber pacemaker placement. 3. History of COPD, no evidence of bronchospasm at present. 4. Obesity hypoventilation/uncontrolled DAGOBERTO. Chronic hypercarbic respiratory failure. 5. Chronic venous stasis/lower extremity edema. 6. Minimally elevated troponin. 7. Hypertension. 8. Hyperlipidemia. 9. Constipation. Recommendations: * Continue to wean supplemental oxygen down, to maintain saturations greater than 92%. * Discontinue high flow oxygen. * Continue nocturnal BiPAP. * Continue nebs/TRC. * Diuresis as recommended by cardiology. Monitor strict I & Os. * Discontinue Forte catheter. * Continue medication for blood pressure control. * Monitor off antibiotics. * PT consult, out of bed to chair today. * Please start Colace for constipation. * DVT prophylaxis at all times. * Downgrade to telemetry.
--- NOTE | 2016-11-02 09:22 | Transfer of Care Summary ---
Hospital Course Course Hospital Course: Patient is a 66 year old gentleman with PMH of HTN, HLD, diastolic HF, COPD, DAGOBERTO , cardiac arrest during a recent admission at [place] in Jun 2016, who was brought in to the ED due to hypoxia, cyanosis, 2 days of SOB at rest and orthopnea. Patient was also bradycardic since the previous admission in June and was supposed to have a pacemaker placed, patient came to the ED due to increased work of breathing and leg swelling as well as dizziness. He was initially admitted to the ICU for close monitoring as his EKG revealed heart block (mostly first degree but also second degree, mobitz type 2). He had defibrillator at bedside with pads on. Patient underwent pacemaker placement on 11/01/16. He is downgraded to telemetry since 11/02/16. Patient is kept on IV lasix for concomitant CHF exacerbation. The following were addressed during his stay in the ICU: Acute hypoxic hypercarbic respiratory failure ABG showed hypercarbia and respiratory acidosis and CXR showed hazy opacities at the bases of the lungs with possible pneumonia. Patient received IV ceftazidime and IV vancomycin for two days which were discontinued as the patient remained afebrile and did not have elevated WBC. Patient has a history of COPD, has chronic coughing with phlegm, did not report increased coughing and sputum production nor any changes in the color of the sputum. Initial exam revealed scattered rhonchi, no wheezing or crackles. Most likely etiology is CHF exacerbation with ProBNP elevated, orthopnea, worsening SOB and increased LE edema and developing lower extremity skin tear. He also initially required Bipap, his oxygen requirement gradually went down to 2L O2 per NC. He has also been receiving IV lasix 40 mg IV BID. Repeat CXR on : Bilateral small pleural effusions and associated bilateral lower lung consolidation/atelectasis. * monitor Vital signs and O2 suppl as needed to keep SO2>92% * continue lasix 40 mg IV BID, will switch to PO lasix at discharge * continue TRC/nebs * continue watch off antibiotics DAGOBERTO Patient has sleep study done and requires Bipap at night. * Will continue Bipap at the current setting * instructions are also put in the script for the patient to receive Bipap at home, please follow up with pillowcase makermanager progressive care block and bradycardia - resolved - s/p pacemaker Went to second degree mobitz I and II in the serial EKGs - s/p pacemaker on Repeat xray on 11/02/16: Right atrial and right ventricular pacer leads in place. HR has been stable in 60s to 80s. Will follow up as outpatient with Dr. Wakefield. Chronic venous stasis ulcers and a decubitus ulcer dry 3x4 cm stage 1 ulcer on the left lower extremity and 1x1 ulcer on the right lower ext also there is a 4x5 cm ulcer on the medial of right buttock with black eschar * wound consult in place * daily change of dressing with xeroform and kerlix on the right lower ext * santyl and xeroform on the right buttock ulcer Right arm swelling started 11/03/15 in the pm, RUE venous doppler was negative for DVT, arm is still slightly swollen and pt reports numbness and tingling. no weakness, and ROM of the arm and hand are normal. Swelling started 1 day after pacemaker placement on the same side. This could be due to impaired drainage in that arm due to inflammation induced by the pacemaker placement in that arm. * discontinued the IV line on that arm * encouraged arm elevation Facial skin rash Patient has erythematous and scaling rashes on the skin, denies history of psoriasis. rash resembling rosacea. He uses lubricants at home on the skin. * applied Lubriderm patch on the face which has improved the rash History of HTN, HLD, seizure disorder * continue home medications: keppra switched from IV to PO, statin, lisinopril Constipation * continue bowel regimen with Colace and Miralax Heart healthy diet Mild pain pathway DVT px heparin SC FULL CODE Assessment/Plan: please see above. Patient has history of COPD, cough with phlegm, does not report increased coughing and change in the color of the sputum. exam reveals rhonchi, no wheezing. other possibility is CHF exacerbation. ProBNP elevated (although relatively lower than the previous measurement in June), also reports orthopnea, worsening SOB and increased LE edema and skin tear. ABG shows hypercarbia, respiratory acidosis CXR: hazy opacities at the bases of the lungs - may be due to pneumonia * ICU admit * monitor Vital signs and O2 suppl as needed to keep SO2>92% (currently requiring Bipap) * on Bipap, O2 suppl to keep SO2>92% * lasix 40 mg IV BID * IV vancomycin and ceftazidime * lower respiratory cultures * repeat ABG tonight Complete heart block EKG shows LBBB and Complete heart block * patient is a candidate for a pacemaker * will be kept on monitor and recommend to keep pads on the chest and defibrillator at bedside * consider atropine at bedside History of HTN, HLD, seizure disorder * continue home medications : keppra, statin, lisinopril Diet heart healthy diet DVT px heparin SC FULL CODE Assessment/Plan: please see above. Diet heart healthy diet DVT px heparin SC FULL CODE
--- NOTE | 2016-11-02 09:30 | PN- Cardiology ---
Subjective Subjective: The patient successfully underwent pacemaker implantation yesterday. Fortunately this was able to be done under sedation and he did not need intubation for the procedure. Today he is comfortable and breathing easily on nasal oxygen. He has no complaints of pain or weakness. He is in sinus rhythm with atrial sensing and ventricular pacing on the monitor at a rate of about 80. Objective Vital Signs and I&Os Vital Signs Date Time Temp Pulse Resp B/P B/P Pulse O2 O2 Flow FiO2 Mean Ox Delivery Rate 11/02 0527 65 97 11/02 0400 96 BIPAP 45% 11/02 0322 80 97 11/02 0020 63 98 11/02 0000 98.1 63 24 104/70 93 BIPAP 45% 11/02 0000 93 BIPAP 45% 11/01 2244 60 95 11/01 2210 97.7 88 24 163/66 11/01 2207 97.7 88 24 163/66 11/01 2000 92 Nasal 4.0L Cannula 11/01 1918 93 Nasal 4.0L Cannula 11/01 1736 93 127/59 11/01 1736 93 127/59 11/01 1700 98.3 92 22 138/60 91 Nasal 4.0L Cannula 11/01 1700 91 Nasal 4.0L Cannula 11/01 1200 96 Nasal 6.0L Cannula 11/01 1100 42 117/65 Intake & Output 11/02 1600 11/02 0800 11/02 0000 11/01 1600 11/01 0800 11/01 0000 Intake Total 600 557 669 2198 Output Total 785 3100 520 878 0016 Balance -185 -2500 -595 -600 -1336 Intake, IV 100 150 130 154 Intake, Oral 500 450 0 960 Output, Urine 785 3100 542 442 6187 Patient 371 lb 369 lb Weight Weight Bed scale Measurement Method Physical Exam: He is in no distress Chest is clear Heart reveals soft heart sounds and no murmurs Pacemaker site shows no bleeding or hematoma. Steri-Strips are intact. Extremities reveal resolving edema Current Medications: Current Medications Sig/Ji Start time Last Medication Dose Route Stop Time Status Admin Acetaminophen 1,000 MG .STK-MED ONE 11/01 1402 DC IV 11/01 1403 Acetaminophen 650 MG Q8P PRN 10/27 1500 AC 10/31 PO 2250 Albuterol Sulfate 3 ML Q4P PRN 10/27 1945 AC INH Aspirin Buffered 81 MG DAILY 10/28 1000 AC 11/01 PO 1736 Atorvastatin Calcium 20 MG 1700 10/27 1700 AC 11/01 PO 1736 Cefazolin Sodium 3,000 MG 0600,2200 11/01 220 DC 11/02 Sodium Chloride 100 ML IV 11/02 0629 0601 Dexamethasone 4 MG .STK-MED ONE 11/01 1403 DC IM 11/01 1404 Docusate Sodium 100 MG BID 11/02 1000 UNVr PO Fentanyl Citrate 100 MCG .STK-MED ONE 11/01 1402 DC IM 11/01 1403 Furosemide 40 MG 7:30 AM, & 4:30 PM 10/27 1900 AC 11/02 IV 0703 Heparin Sodium 5,000 UNIT Q8 10/27 2200 DC 11/01 (Porcine) SC 2207 Hydralazine HCl 25 MG TID 10/27 1600 AC 11/01 PO 220 Ketamine HCl 50 MG .STK-MED ONE 11/01 1403 DC IM 11/01 1404 Levetiracetam 1,000 MG Q12 10/27 220 AC 11/01 N/A 1 UNIT IV 2154 Lisinopril 40 MG DAILY 10/27 1600 AC 11/01 PO 1736 Metoprolol Tartrate 25 MG BID 11/01 220 AC PO Midazolam HCl 2 MG .STK-MED ONE 11/01 1403 DC IM 11/01 1404 Nitroglycerin 0.4 MG DAILY 10/27 1548 AC 11/01 TOP 1737 Nystatin 1 SAM BID 10/27 2200 AC 11/01 TOP 2208 Ondansetron HCl 8 MG .STK-MED ONE 11/01 1403 DC IM 11/01 1404 Potassium Chloride 20 MEQ BID 10/27 2199 AC 11/01 PO 220 Results Last 48 Hrs of Labs/Mics: Laboratory Tests 11/02/16 0505: Anion Gap 10, Estimated GFR > 60, Glucose 139 H, Calcium 8.3 L, Phosphorus 3.7 , Magnesium 2.1, Total Bilirubin 1.0, AST 33, ALT 37, Albumin 3.4 L, CBC w Diff NO MAN DIFF REQ, RBC 4.97, MCV 94.0, MCH 30.3, RDW 16.9 H, MPV 9.1, Gran % 85.7 H, Lymphocytes % 8.0 L, Monocytes % 5.5, Eosinophils % 0.5, Basophils % 0.3, Absolute Granulocytes 8.6 H, Absolute Lymphocytes 0.8 L, Absolute Monocytes 0.5, Absolute Eosinophils 0, Absolute Basophils 0, PUBS MCHC 32.2 L 11/01/16 0315: Anion Gap 8, Estimated GFR > 60, Glucose 109 H, Calcium 8.3 L, Phosphorus 4.2, Magnesium 2.1, Total Bilirubin 1.2, AST 25, ALT 34, Albumin 3.3 L, CBC w Diff NO MAN DIFF REQ, RBC 4.92, MCV 94.4 H, MCH 30.3, RDW 18.1 H, MPV 9.2, Gran % 61.2, Lymphocytes % 20.6, Monocytes % 11.3 H, Eosinophils % 6.4 H, Basophils % 0.5, Absolute Granulocytes 5.4, Absolute Lymphocytes 1.8, Absolute Monocytes 1.0 H, Absolute Eosinophils 0.6, Absolute Basophils 0, PUBS MCHC 32.1 L Recent Imaging Studies: PATIENT: LISA BRIAN PRESENT AGE: 66 PATIENT ACCOUNT NO: [id number] : 51 LOCATION: [facility] ORDERING PHYSICIAN: PADMAJA MEI MD SERVICE DATE: 11/01/16 EXAM TYPE: RAD - XRY-PORTABLE CHEST XRAY EXAMINATION: XR PORTABLE CHEST CLINICAL INFORMATION: Status post pacer placement COMPARISON: Same day film TECHNIQUE: Portable AP view of the chest was obtained. FINDINGS: Pacer leads cannot adequately visualized here. Recommend a low chest film. There is felt to be increasing vascular congestion/CHF here. There is no evidence for pneumothorax. IMPRESSION: There is no pneumothorax however the distal leads cannot be adequately localized on this exposure. Recommend lower shot film. Findings suggest early CHF DICTATED BY: SHANTANU UREÑA MD DATE/TIME DICTATED:11/01/161630 MEAT LOINER:ELIA DATE/TIME TRANSCRIBED:11/01/161630 CONFIDENTIAL, DO NOT COPY WITHOUT APPROPRIATE AUTHORIZATION. <Electronically signed in Other Vendor System> SIGNED BY: SHANTANU UREÑA MD 11/01/161635 Was 10 out of the KUB L, overpenetrated. Sincerely Assessment/Plan Assessment/Plan The patient tolerated his pacemaker well. It seems to be functioning normally. We will re-interrogate it this morning. I've asked for a chest x-ray to be repeated as it was underpenetrated. Otherwise the patient can be moved to telemetry if okay with KLaurent Gillette MD. Continue telemetry? Yes
--- NOTE | 2016-11-02 09:49 | RADIOLOGY REPORT ---
EXAMINATION:\H\ \N\XR CHEST CLINICAL INFORMATION: Dual chamber pacemaker insertion. COMPARISON: Chest x-ray dated 11/01/2016. TECHNIQUE: Fluoroscopic equipment was dedicated to the operating room for the placement of a dual chamber pacemaker. 3 spot films were acquired and are archived in PACS. FLUOROSCOPY TIME: 9.9 minutes. FINDINGS: Right atrial and right ventricular pacer leads are seen. Evaluation is limited on the coned-down views submitted for review. IMPRESSION: Administrative dictation for pacemaker placement.
--- NOTE | 2016-11-02 12:14 | RADIOLOGY REPORT ---
EXAMINATION: XR PORTABLE CHEST CLINICAL INFORMATION: Status post pacemaker placement. COMPARISON: Chest x-ray dated 11/01/2016. TECHNIQUE: Portable AP view of the chest was obtained. FINDINGS: Right atrial and right ventricular pacer leads are in place. Cardiomediastinal silhouette is enlarged. Central vascular congestion and bibasilar opacities are again seen, consistent with bilateral pleural effusions and associated bibasilar consolidation or atelectasis, unchanged. No pneumothorax is present. Bony structures grossly unremarkable. IMPRESSION: Right atrial and right ventricular pacer leads are in satisfactory position. No pneumothorax.
--- NOTE | 2016-11-02 12:17 | RADIOLOGY REPORT ---
EXAMINATION: XR CHEST CLINICAL INFORMATION: Status post pacemaker placement. COMPARISON: Chest x-ray from earlier today. TECHNIQUE: 2 views of the chest were obtained. FINDINGS: The lateral views are nondiagnostic due to under exposure. Right atrial pacer lead is now better visualized. Right ventricular pacer lead is also seen. Cardiomegaly, bilateral small pleural effusions and bibasilar lung consolidation/atelectasis again noted, unchanged. No pneumothorax. IMPRESSION: 1. Right atrial and right ventricular pacer leads in place. 2. Bilateral small pleural effusions and associated bilateral lower lung consolidation/atelectasis.
--- NOTE | 2016-11-02 14:27 | ULTRASOUND REPORT ---
EXAMINATION: US TRIPLEX UPPER EXTREMITY, RIGHT CLINICAL INFORMATION: Right arm weakness and tingling. COMPARISON: None TECHNIQUE: Color-flow triplex imaging with spectral analysis and compression Doppler were performed on the right upper extremity. Limited exam due to body habitus. FINDINGS: There is no evidence of deep venous thrombosis in the right internal jugular vein, right innominate vein, right subclavian vein, right axillary vein, brachial veins, basilic vein. The cephalic vein is not visualized. IMPRESSION: Normal triplex scan without evidence of deep venous thrombosis involving the right upper extremity.
--- NOTE | 2016-11-02 14:50 | Operative Report ---
Operative/Inv Procedure Report Surgery Date: 11/01/16 Name of Procedure: Implantation of dual-chamber pacemaker, atrial and ventricular leads Pre-Operative Diagnosis: Second-degree AV block Post-Operative Diagnosis: Second-degree AV block Estimated Blood Loss: less than 50ml Surgeon/Carroting Machine Operator: Lang Wakefield M.D. Anesthesia: local monitored anesthesi Implants: Medtronic [id number] Advisa SOLO conditional dual-chamber pacemaker, serial number [id number] Medtronic atrial lead model #731973, serial number [id number] Medtronic ventricular lead model #104072, serial number [id number] Complications: None Condition: Improved Operative/Procedure Note Note: The patient is a 66-year-old man with progressive second-degree AV block. He was admitted for respiratory failure and congestive heart failure. When his condition improved significantly he was recommended a dual chamber pacemaker. Originally it was thought he might need to be intubated for the procedure but anesthesia providers were able to sedate him without the need for endotracheal intubation and he tolerated this well. Informed consent was obtained from the patient. He was brought to the operating suite in the fasting state. He was prepped and draped in the usual manner. 3 g of Kefzol IV was given prophylactically prior to the procedure as he was very large. Full timeout was taken and all agreed with the procedure, patient identification, equipment and personnel. Local anesthesia was instilled in the right subclavian area and an incision made in this area and carried down to the deltopectoral groove. The groove was opened and the vein was sought but there was no adequate vein. Next, a pocket was made in the inferior part of the incision using additional local anesthesia, blunt and sharp dissection, and stuffed with a Kefzol-soaked sponge. Next, a needle was placed in the subclavian vein with minimal difficulty. A wire was placed into central circulation through the needle and over the wire a #9 introducer was passed. Through the introducer the ventricular lead was passed into the apex of the right ventricle under fluoroscopic control, retaining the wire. The lead was fixated using the active fixation feature. Threshold in the ventricle was 1.2 V, current 1.2 milliamps and impedance 640 ohms. R wave was 8.6 mV. This was considered satisfactory for an acute implant with an active fixation lead. Next over the retained wire a #7 Azeri introducer was passed. Through the introducer the atrial lead was passed into central circulation and manipulated into the right atrial appendage under fluoroscopic control, and screwed into place using the active fixation feature. Threshold in the atrium was 0.9 V, current 1.7 mA, impedance 615 ohms, P waves 2.6 mV. These were considered satisfactory. Next the leads were sewn into place using the sleeve devices around the leads and nonabsorbable sutures sutured to the pre-muscular fascia. Next the pacemaker was brought into the field and attached to the leads in the proper sequence and appropriate pacing ensued. The sponge was removed from the pocket and the pacemaker was placed in the pocket and sewn into place using a nonabsorbable suture through the suture hole of the pacemaker and sewn to the muscularis. The wound was flushed with antibiotic solution and inspected and found to be dry. The wound was closed in 3 layers of absorbable suture material including a final layer of subcuticular sutures with buried knots. The wound was dressed appropriately with Steri-Strips and a dressing. The patient was removed to the recovery room awake and alert and pacing well. Sponge, needle and instrument counts were correct at the end of the procedure. Postoperative EKG and chest x-ray documented good electrical and anatomic position and function of the system. Discharge Disposition: PACU CC: Toby NARAYAN MD
[2016-11-02 16:28] VITALS: BP 140/75
--- NOTE | 2016-11-02 16:42 | PN- Wound Care ---
Subjective Subjective: She Notes is seen in follow-up. The difficulty positioning him yesterday his right buttock was not able to be evaluated. Today we were able to stand him with multiple aides and he has a approximately 4-1/2 x4 centimeter unstageable wound with black eschar. Nursing reports that this was initially a small skin tear first seen on Sunday. Objective Vital Signs and I&Os Vital Signs Result Date Time Pulse Ox 95 11/03 1627 O2 Delivery Nasal Cannula 11/03 1627 O2 Flow Rate 4.0L 11/03 1627 B/P 140/75 11/02 162 Temp 97.6 11/02 162 Pulse 80 11/02 1628 Resp 19 11/02 162 Intake & Output 11/02 0000 11/01 1600 11/01 0800 Intake Total 600 130 Output Total 3100 725 600 Balance -2500 -595 -600 Intake, IV 150 130 Intake, Oral 450 0 Output, Urine 3100 725 600 Patient 369 lb Weight Weight Bed scale Measurement Method M the right buttock there is an unstageable pressure ulcer over the right buttock measuring approximately 4.5 x 4 cm the majority of the ulcer is 100% black eschar. There is no periwound induration undermining or sinus tracking. Impression/Plan Impression/Plan Impression/Plan: T6-year-old gentleman morbidly obese history of chronic edema and venous insufficiency has bilateral venous stasis ulcers present on admission. Elevate his legs to the extent feasible wound care is Xeroform and gauze dressings with daily cleansing. Is developed an unstageable right buttock ulcer secondary to pressure. Recommendation is made for initial trial enzymatic debridement with Santyl Xeroform and offloading of the area. If this fails to improve formal surgical debridement will be necessary.
[2016-11-02 20:00] VITALS: BP 134/82
[2016-11-03] VITALS: BP 118/80
[2016-11-03 06:11] LABS: ABSOLUTE BASOPHIL COUNT 0 /CUMM (0.0-0.2); ABSOLUTE EOSINOPHIL COUNT 0.5 /CUMM (0.0-0.7); ABSOLUTE GRANULOCYTE CT 5.7 /CUMM (1.4-6.5); ABSOLUTE LYMPH COUNT 1.7 /CUMM (1.2-3.4); BASOPHIL % 0.3 % (0.0-2.0); EOSINOPHIL % 5.5 % (0-5); GRANULOCYTE % 64.5 % (42.2-75.2); MEAN CORPUSCULAR HGB 30.4 PG (27.0-31.0); MEAN CORPUSCULAR HGB CONC 32.1 G/DL (33.0-37.0); MEAN CORPUSCULAR VOLUME 94.6 FL (80.0-94.0); MEAN PLATELET VOLUME 9.3 FL (7.4-10.4); PLATELET COUNT 127 /CUMM (130-400); RBC DISTRIBUTION WIDTH 17.2 % (11.5-14.5); RED BLOOD CELL CT 4.86 /CUMM (4.70-6.10); WHITE BLOOD CELL COUNT 8.8 /CUMM (4.8-10.8)
--- NOTE | 2016-11-03 07:10 | PN- Housestaff ---
Subjective Follow-up For: 1. Acute hypoxic respiratory failure due to CHF exacerbation - improved 2. Bradycardia and heart block - s/p pacemaker placement 3. DAGOBERTO, hisotory of COPD 4. HTN, HLD Complaints: no complaints Tele-Events Since Last Visit: ventrucular paced rhythm, HR ranged between 59-82 Subjective: I saw and examined Mr. Weaver this morning, he is alert and awake in no distress, he is stating persistent numbness and tingling on the left hand, reports no difficulty breathing, no chest pain or palpitation, he has discomfort and pain on the right upper chest at the site of the pacemaker which was resolved with ibuprofen yesterday evening. Patient has not had bowel movement since admission, he will receive suppository today. Review of Systems Constitutional: Denies: chills, fever, weakness. EENTM: Reports: no symptoms. Cardiovascular: Denies: chest pain, palpitations. Respiratory: Denies: cough, short of breath, sputum production. Gastrointestinal: Reports: constipation. Denies: abdominal pain. Genitourinary: Reports: no symptoms. Musculoskeletal: Denies: back pain (reports tingling on left hand). Skin: Reports: lesions (LE extremities and the back). Neurological/Psychological: Reports: no symptoms. Hematologic/Endocrine: Reports: no symptoms. Objective Last 24 Hrs of Vital Signs/I&O Vital Signs Date Time Temp Pulse Resp B/P B/P Pulse O2 O2 Flow FiO2 Mean Ox Delivery Rate 11/03 0835 84 132/82 11/03 0834 84 132/82 11/03 0834 87 132/82 11/03 0549 68 97 11/03 0326 64 11/03 0105 88 98 11/03 0000 98 BIPAP 45% 11/03 0000 97.1 61 18 118/80 98 BIPAP 45% 11/02 2315 60 97 11/02 2217 97.4 74 20 134/82 11/02 2214 7.4 74 20 134/82 11/02 2000 97.4 74 20 134/82 97 Nasal 4.0L Cannula 11/02 1628 95 Nasal 4.0L Cannula 11/02 162 97.6 80 19 140/75 95 Nasal 4.0L Cannula 11/02 1611 92 140/75 11/02 1446 75 136/78 11/02 1142 86 130/55 11/02 1142 87 130/55 Intake & Output 11/03 1600 11/03 0800 11/03 0000 Intake Total 100 150 Output Total 300 1000 Balance -200 -850 Intake, Oral 100 150 Output, Urine 300 1000 Physical Exam General Appearance: Alert, Oriented X3, Cooperative, No Acute Distress Skin: there are two small 1x1 stage 1 skin lesions on the right lower leg which are covered by xeroform and kerlix. there is also a dry healed ulcer on the left lower naqvi 3x2 cm which are covered by kerlix , patient also has a 4x5 cm necrotic superficial skin ulcer on the right buttock for which we apply santyl and xeroform., there are sutures on the right upper chest at the site fo the pacemaker, non tender and nonerythematous HEENT: Atraumatic, EOMI, Mucous Membr. moist/pink Neck: Supple Cardiovascular: Regular Rate, Normal S1, Normal S2 Lungs: Clear to Auscultation, Normal Air Movement Abdomen: Soft, No Tenderness Neurological: Normal Speech, Normal Tone Extremities: No Edema (1+ pitting edema) Vascular: Pulses Symmetrical Current Medications: Current Medications Sig/Ji Start time Last Medication Dose Route Stop Time Status Admin Acetaminophen 650 MG .STK-MED ONE 11/02 1151 DC PO 11/02 1152 Acetaminophen 650 MG Q8P PRN 10/27 1500 AC 11/02 PO 1152 Albuterol Sulfate 3 ML Q4P PRN 10/27 1945 AC INH Aspirin Buffered 81 MG DAILY 10/28 1000 AC 11/03 PO 0833 Atorvastatin Calcium 20 MG 1700 10/27 1700 AC 11/02 PO 1610 Bisacodyl 10 MG ONCE ONE 11/03 0845 DC RI 11/03 0846 Collagenase 1 SAM DAILY 11/03 1000 AC 11/03 TOP 0833 Docusate Sodium 100 MG BID 11/02 1000 AC 11/03 PO 0833 Furosemide 40 MG 7:30 AM, & 4:30 PM 10/27 1900 AC 11/03 IV 0832 Glycerin/Mineral Oil 1 SAM TID PRN 11/03 0800 AC TOP Hydralazine HCl 25 MG TID 10/27 1600 AC 11/03 PO 0834 Ibuprofen 600 MG ONCE ONE 11/02 1615 DC 11/02 PO 11/02 1616 1622 Levetiracetam 1,000 MG BID 11/02 1144 AC 11/03 PO 0833 Levetiracetam 1,000 MG Q12 10/27 220 DC 11/01 N/A 1 UNIT IV 2154 Lisinopril 40 MG DAILY 10/27 1600 AC 11/03 PO 0834 Metoprolol Tartrate 25 MG BID 11/01 2199 AC 11/03 PO 0835 Nitroglycerin 0.4 MG DAILY 10/27 1548 AC 11/02 TOP 1254 Nystatin 1 SAM BID 10/27 2199 AC 11/02 TOP 2218 Potassium Chloride 20 MEQ BID 10/27 2199 AC 11/03 PO 0833 Last 24 Hrs of Lab/Heriberto Results Last 24 Hrs of Labs/Mics: Laboratory Tests 11/03/16 0545: Anion Gap 8, Estimated GFR > 60, BUN/Creatinine Ratio 32.7 H, Magnesium 2.3, CBC w Diff NO MAN DIFF REQ, RBC 4.86, MCV 94.6 H, MCH 30.4, RDW 17.2 H, MPV 9.3, Gran % 64.5, Lymphocytes % 18.9 L, Monocytes % 10.8 H, Eosinophils % 5.5 H, Basophils % 0.3, Absolute Granulocytes 5.7, Absolute Lymphocytes 1.7, Absolute Monocytes 1.0 H, Absolute Eosinophils 0.5, Absolute Basophils 0, PUBS MCHC 32.1 L 11/02/16 1444: Anion Gap 13, Estimated GFR > 60, BUN/Creatinine Ratio 31.1 H Assessment/Plan Assessment: Patient is a 66 year old gentleman with PMH of HTN, HLD, diastolic HF, COPD, DAGOBERTO , cardiac arrest during a recent admission at [place] in Jun 2016, who was brought in to the ED due to hypoxia, cyanosis, 2 days of SOB at rest and orthopnea. Patient is also bradycardic since the previous admission in June and was supposed to have a pacemaker placed, patient came to the ED due to increased work of breathing and leg swelling as well as dizziness. He was initally admitted to the ICU for close monitoring; His EKG revealed mobitz type 2 and questionable thrid degree heart block. He had defibrillater at bedside with pads on. Patient had pacemaker placed on 11/01/16. He is downgraded to telemetry since 11/02/16. patient is also receiving IV lasix for CHF exacerbation. Problem list and plan: Right arm swelling started 11/03/15 in the pm, RUE venuos doppler was negative for DVT, arm is still slightly swollen and pt reports numbness and tingling. no weakness, and ROM of the arm and hand are normal. * discontinued the IV line on that arm * encouraged arm elevation Acute hypoxic hypercarbic respiratory failure - improved most likely due to CHF exacerbation currently remains on 4L NC (was on bipap initially, then high flow NC till ). Patient does not use O2 at home and is supposed to get Bipap vs CPAP at night (for DAGOBERTO) * monitor Vital signs and O2 suppl as needed to keep SO2>92% * continue lasix 40 mg IV BID, will consider to switch to PO lasix First degree AV block and bradycardia - resolved - s/p pacemaker Went to second degree mobitz I and II in the serial EKGs - s/p pacemaker on Repeat xray: Right atrial and right ventricular pacer leads in place. Bilateral small pleural effusions and associated bilateral lower lung consolidation/ atelectasis. * stable to go to tele * continue TRC nebs * watch off antibiotics Chronic venous stasis ulcers and a decubitus ulcer dry 3x4 cm stage 1 ulcer on the left lower extremity and 1x1 ulcer on the right lower ext also there is a 4x5 cm ulcer on the medial of right buttock with black eshcar * wound consult in place * daily change of dressing with xeroform and kerlix on the right lower ext * santyl and xeroform on the right buttock ulcer Facial skin rash Patient has erythematous and scaling rashes on the skin, denies history of psoriasis. rash resemble rosacea. He uses lubricants at home on the skin. * apply Lubriderm patch on the face History of HTN, HLD, seizure disorder * continue home medications: keppra switched from IV to PO, statin, lisinopril Heart healthy diet Mild pain pathway DVT px heparin SC FULL CODE Problem List: 1. Status post placement of cardiac pacemaker 2. Acute exacerbation of CHF (congestive heart failure) 3. Respiratory failure 4. Obesity hypoventilation syndrome Pain Ratin Pain Location: none Pain Goal: Pain 4 or less Pain Plan: Tylenol for mild pain, icepack and Ibuprofen PRN for the pain around pacemaker to decrease inflammation and pain Tomorrow's Labs & Rationales: BEP (monitor electrolytes and kidney fx)
[2016-11-03 08:00] VITALS: BP 132/82
--- NOTE | 2016-11-03 08:46 | PN- Pulmonary ---
Subjective HPI/Critical Care Issues: The patient is awake and alert. He reports feeling improved overall. He slept well on BiPAP. His shortness of breath is less. He is doing well getting out of bed to the chair. There were no overnight events reported. Objective Current Medications: Current Medications Sig/Ji Start time Last Medication Dose Route Stop Time Status Admin Acetaminophen 650 MG .STK-MED ONE 11/02 1151 DC PO 11/02 1152 Acetaminophen 650 MG Q8P PRN 10/27 1500 AC 11/02 PO 1152 Albuterol Sulfate 3 ML Q4P PRN 10/27 1945 AC INH Aspirin Buffered 81 MG DAILY 10/28 1000 AC 11/03 PO 0833 Atorvastatin Calcium 20 MG 1700 10/27 1700 AC 11/02 PO 1610 Collagenase 1 SAM DAILY 11/03 1000 AC 11/03 TOP 0833 Docusate Sodium 100 MG BID 11/02 1000 AC 11/03 PO 0833 Furosemide 40 MG 7:30 AM, & 4:30 PM 10/27 1900 AC 11/03 IV 0832 Glycerin/Mineral Oil 1 SAM TID PRN 11/03 0800 AC TOP Hydralazine HCl 25 MG TID 10/27 1600 AC 11/03 PO 0834 Ibuprofen 600 MG ONCE ONE 11/02 1615 DC 11/02 PO 11/02 1616 1622 Levetiracetam 1,000 MG BID 11/02 1144 AC 11/03 PO 0833 Levetiracetam 1,000 MG Q12 10/27 2200 DC 11/01 N/A 1 UNIT IV 2154 Lisinopril 40 MG DAILY 10/27 1600 AC 11/03 PO 0834 Metoprolol Tartrate 25 MG BID 11/01 2200 AC 11/03 PO 0835 Nitroglycerin 0.4 MG DAILY 10/27 1548 AC 11/02 TOP 1254 Nystatin 1 SMA BID 10/27 2200 AC 11/02 TOP 2218 Potassium Chloride 20 MEQ BID 10/27 2200 AC 11/03 PO 0833 Vital Signs & I&O Last 24 Hrs of Vitals and I&O: Vital Signs Date Time Temp Pulse Resp B/P B/P Pulse O2 O2 Flow FiO2 Mean Ox Delivery Rate 11/03 0835 84 132/82 11/03 0834 84 132/82 11/03 0834 87 132/82 11/03 0549 68 97 11/03 0326 64 11/03 0105 88 98 11/03 0000 98 BIPAP 45% 11/02 2315 60 97 11/02 2217 97.4 74 20 134/82 11/02 2214 7.4 74 20 134/82 11/02 2000 97.4 74 20 134/82 97 Nasal 4.0L Cannula 11/02 1628 95 Nasal 4.0L Cannula 11/02 1628 97.6 80 19 140/75 95 Nasal 4.0L Cannula 11/02 1611 92 140/75 11/02 1446 75 136/78 11/02 1142 86 130/55 11/02 1142 87 130/55 Intake & Output 11/03 1600 11/03 0800 11/03 0000 Intake Total 100 150 Output Total 300 1000 Balance -200 -850 Intake, Oral 100 150 Output, Urine 300 1000 Physical Exam General Appearance Alert and oriented, no distress, on nasal cannula Skin hyperpigmentationand hyperkeratosis due to venous stasis HEENT Atraumatic Neck Supple Cardiovascular Regular Rate, No Murmurs, distant heart sounds Lungs Decreased breath sounds, scattered rhonchi and crackles Abdomen Soft, No Tenderness, obese Extremities pitting edema on lower extremities Results Last 24 Hrs of Lab Results: Laboratory Tests 11/03/16 0545: Anion Gap 8, Estimated GFR > 60, BUN/Creatinine Ratio 32.7 H, Magnesium 2.3, CBC w Diff NO MAN DIFF REQ, RBC 4.86, MCV 94.6 H, MCH 30.4, RDW 17.2 H, MPV 9.3, Gran % 64.5, Lymphocytes % 18.9 L, Monocytes % 10.8 H, Eosinophils % 5.5 H, Basophils % 0.3, Absolute Granulocytes 5.7, Absolute Lymphocytes 1.7, Absolute Monocytes 1.0 H, Absolute Eosinophils 0.5, Absolute Basophils 0, PUBS MCHC 32.1 L 11/02/16 1444: Anion Gap 13, Estimated GFR > 60, BUN/Creatinine Ratio 31.1 H Diagnostic Data US Findings: Normal triplex scan without evidence of deep venous thrombosis involving the right upper extremity. Impression/Plan Impression/Plan Impression/Plan: 1. Acute hypoxemic respiratory failure, secondary to acute HFpEF, on IV Lasix. 2. Underlying heart block, s/p dual chamber pacemaker placement. 3. History of COPD, no evidence of bronchospasm at present. 4. Obesity hypoventilation/uncontrolled DAGOBERTO. Chronic hypercarbic respiratory failure, on nocturnal bipap. 5. Chronic venous stasis/lower extremity edema. 6. Minimally elevated troponin. 7. Hypertension. 8. Hyperlipidemia. 9. Constipation. Recommendations: * Continue to wean supplemental oxygen down, to maintain saturations greater than 92%. * Continue nocturnal BiPAP. * Continue nebs/TRC. * Diuresis as recommended by cardiology. Monitor strict I & Os. * Continue medication for blood pressure control. * Monitor off antibiotics. * PT consult, out of bed to chair daily. * Colace for constipation. * Please give Dulcolax suppository today for constipation. * DVT prophylaxis at all times. * Continue telemetry monitoring.
--- NOTE | 2016-11-03 10:40 | PN- Cardiology ---
Subjective Subjective: The patient is feeling well today. He is sitting in a chair. He is on nasal oxygen. He is pacing well on the monitor. The pacemaker was interrogated yesterday and is functioning normally. Objective Vital Signs and I&Os Vital Signs Date Time Temp Pulse Resp B/P B/P Pulse O2 O2 Flow FiO2 Mean Ox Delivery Rate 11/03 0835 84 132/82 11/03 0834 84 132/82 11/03 0834 87 132/82 11/03 0549 68 97 11/03 0326 64 11/03 0105 88 98 11/03 0000 98 BIPAP 45% 11/03 0000 97.1 61 18 118/80 98 BIPAP 45% 11/02 2315 60 97 11/02 2217 97.4 74 20 134/82 11/02 2214 7.4 74 20 134/82 11/02 2000 97.4 74 20 134/82 97 Nasal 4.0L Cannula 11/02 1628 95 Nasal 4.0L Cannula 11/02 1628 97.6 80 19 140/75 95 Nasal 4.0L Cannula 11/02 1611 92 140/75 11/02 1446 75 136/78 11/02 1142 86 130/55 11/02 1142 87 130/55 Intake & Output 11/03 1600 11/03 0800 11/03 0000 11/02 1600 11/02 0800 11/02 0000 Intake Total 100 150 480 600 600 Output Total 300 1000 2125 785 3100 Balance -200 -850 -1645 -185 -2500 Intake, IV 0 100 150 Intake, Oral 100 150 480 500 450 Output, Stool 0 Output, Urine 300 1000 2125 785 3100 Patient 371 lb Weight Physical Exam: He is comfortable His chest is clear with decreased breath sounds Heart reveals regular rhythm and no murmurs Pacemaker site is well-healed. I replaced a Steri-Strip that was missing. Assessment/Plan Assessment/Plan The patient is doing well. His pacemaker is functioning well and the wound looks good. He can be moved to telemetry unit when a bed is available and probably can be discharged soon. I will follow him up in the office appropriately. Continue telemetry? Yes
[2016-11-03 16:00] VITALS: BP 151/67
[2016-11-03 20:00] VITALS: BP 120/80
[2016-11-04] VITALS: BP 110/74
[2016-11-04 08:00] VITALS: BP 142/67
--- NOTE | 2016-11-04 08:06 | PN- Resident CRCU ---
Subjective HPI/CRCU Issues: Patient was seen and examined this morning, vital signs are stable, no overnight events reported by the nurse of the patient. Patient is sitting comfortably on the chair, alert oriented 3, on 3 L oxygen with saturation 95%. Patient reported coughing sometimes, denied shortness of breath, chest pain. Patient reported bowel movement yesterday normal no blood or mucus, denied any dysuria, abdominal pain, nausea or vomiting. 24 Hour Events: Patient is telemetry hold Objective Vital Signs & I&O Last 8 Hrs of Vitals and I&O: Intake & Output 11/04 1600 Intake Total 415 Output Total 800 Balance -385 Intake, IV 15 Intake, Oral 400 Number 1 Bowel Movements Output, Urine 800 Exam General Appearance: well developed/nourished, no apparent distress, alert, anxious, comfortable, obese Head: atraumatic, normal appearance Ears, Nose, Throat: normal pharynx, normal ENT inspection Neck: normal inspection, supple, full range of motion Respiratory: normal breath sounds, chest non-tender, no respiratory distress Cardiovascular: regular rate/rhythm Gastrointestinal: normal bowel sounds, soft, distention Extremities: normal capillary refill, normal range of motion, bilateral +1 pedal edema with skin discoloration due to venous stasis. Patient has right leg wound wrapped with bandage. Cranial Nerves: normal hearing, normal speech, PERRL Current Medications: Current Medications Sig/Ji Start time Last Medication Dose Route Stop Time Status Admin Acetaminophen 650 MG .STK-MED ONE 11/04 0808 DC PO 11/04 0809 Acetaminophen 650 MG Q8P PRN 10/27 1500 AC 11/04 PO 1659 Albuterol Sulfate 3 ML Q4P PRN 10/27 1945 AC INH Aspirin Buffered 81 MG DAILY 10/28 1000 AC 11/04 PO 1115 Atorvastatin Calcium 20 MG 1700 10/27 1700 AC 11/04 PO 1652 Collagenase 1 SAM DAILY 11/03 1000 AC 11/04 TOP 1113 Docusate Sodium 100 MG BID 11/02 1000 AC 11/04 PO 1113 Furosemide 40 MG 7:30 AM, & 4:30 PM 10/27 1900 AC 11/04 IV 1652 Glycerin/Mineral Oil 1 SAM TID PRN 11/03 0800 AC 11/04 TOP 1658 Hydralazine HCl 25 MG TID 10/27 1600 AC 11/04 PO 1657 Levetiracetam 1,000 MG BID 11/02 1144 AC 11/04 PO 1113 Lisinopril 40 MG DAILY 10/27 1600 AC 11/04 PO 1113 Metoprolol Tartrate 25 MG BID 11/01 220 AC 11/04 PO 1115 Nitroglycerin 0.4 MG 11/03 2200 AC 11/03 TOP 2226 Nystatin 1 ASM BID 10/27 2200 DC 11/04 TOP 1115 Potassium Chloride 20 MEQ BID 10/27 220 AC 11/04 PO 1114 Impression/Plan Impression/Problem List Impression: Patient is a 66 year old gentleman with PMH of HTN, HLD, diastolic HF, COPD, DAGOBERTO , cardiac arrest during a recent admission at [place] in Jun 2016, who was brought in to the ED due to hypoxia, cyanosis, 2 days of SOB at rest and orthopnea. Patient has past medical history of bradycardia, pacemaker was placed on 11/01/16. Patient is alert, oriented 3 with no active complaint. Problem list and plan: Right arm swelling * Venous Doppler ultrasound ruled out DVT * Recommendation for right arm elevation Acute hypoxic hypercarbic respiratory failure - improved * Most likely due to CHF exacerbation * Oxygen supplementation was titrated to 3 L this morning, will titrate as tolerated, patient has no history of home oxygen (was on bipap initially, then high flow NC till 10/31/16), uses bipap at night * Monitor Vital signs and O2 suppl as needed to keep SO2>92% * Continue lasix 40 mg IV BID, I and O measurement with target output of 1L/day negative balance First degree AV block and bradycardia * Developed second degree mobitz II in the serial EKGs - s/p pacemaker on * repeat xray with better penetration to visualize the leads: 1. Right atrial and right ventricular pacer leads in place. 2. Bilateral small pleural effusions and associated bilateral lower lung consolidation/atelectasis. * Telemetry hold Chronic venous stasis ulcers * Dry 3x4 cm stage 1 ulcer on the left lower extremity and 1x1 ulcer on the right lower ext * Wound consult was obtained, thanks for recommendation * Daily change of dressing with xeroform and kerlix History of HTN, HLD, seizure disorder * Continue home medications: keppra switched from IV to PO, statin, lisinopril Heart healthy diet Mild pain pathway DVT px heparin SC FULL CODE Problem List: 1. First degree AV block 2. Bradycardia 3. Second degree AV block, Mobitz type II 4. Acute exacerbation of CHF (congestive heart failure) 5. COPD (chronic obstructive pulmonary disease) 6. Obesity hypoventilation syndrome 7. Status post placement of cardiac pacemaker Pain Ratin Tomorrow's Labs & Rationales: ICU bundle Plan DVT/Prophylaxis: pharmacological
--- NOTE | 2016-11-04 09:09 | PN- Pulmonary ---
Subjective HPI/Critical Care Issues: Patient seen and examined this morning. He is afebrile and hemodynamically stable. He has a hold for telemetry. Saturating 95% on 2 L nasal cannula. There are no overnight events. No nausea no vomiting no diarrhea no constipation. Respiratory status is stable. Objective Current Medications: Current Medications Sig/Ji Start time Last Medication Dose Route Stop Time Status Admin Acetaminophen 650 MG .STK-MED ONE 11/03 1601 DC PO 11/03 1602 Acetaminophen 650 MG Q8P PRN 10/27 1500 AC 11/04 PO 0816 Albuterol Sulfate 3 ML Q4P PRN 10/27 1945 AC INH Aspirin Buffered 81 MG DAILY 10/28 1000 AC 11/03 PO 0833 Atorvastatin Calcium 20 MG 1700 10/27 1700 AC 11/03 PO 1615 Collagenase 1 SAM DAILY 11/03 1000 AC 11/03 TOP 0833 Docusate Sodium 100 MG BID 11/02 1000 AC 11/03 PO 2225 Furosemide 40 MG 7:30 AM, & 4:30 PM 10/27 1900 AC 11/04 IV 0633 Glycerin/Mineral Oil 1 SAM TID PRN 11/03 0800 AC 11/03 TOP 1024 Hydralazine HCl 25 MG TID 10/27 1600 AC 11/03 PO 2225 Levetiracetam 1,000 MG BID 11/02 1144 AC 11/03 PO 2226 Lisinopril 40 MG DAILY 10/27 1600 AC 11/03 PO 0834 Metoprolol Tartrate 25 MG BID 11/01 2200 AC 11/03 PO 2226 Nitroglycerin 0.4 MG 2200 11/03 2200 AC 11/03 TOP 2226 Nitroglycerin 0.4 MG DAILY 10/27 1548 DC 11/02 TOP 1254 Nystatin 1 SAM BID 10/27 2200 AC 11/03 TOP 2229 Potassium Chloride 20 MEQ BID 10/27 2200 AC 11/03 PO 2226 Vital Signs & I&O Last 24 Hrs of Vitals and I&O: Vital Signs Date Time Temp Pulse Resp B/P B/P Pulse O2 O2 Flow FiO2 Mean Ox Delivery Rate 11/04 0800 97.9 69 15 142/67 95 Nasal 2.0L Cannula 11/04 0445 86 100 11/04 0318 91 97 11/04 0059 86 97 11/04 0000 96.5 86 20 110/74 96 BIPAP 40% 11/04 0000 96 BIPAP 40% 11/036 68 20 11/03 2225 67 20 11/038 82 99 11/04 1999 96 Nasal 4.0L Cannula 11/04 1999 98.6 76 24 120/80 96 Nasal 4.0L Cannula 11/03 1631 60 151/67 11/03 1600 95 Nasal 4.0L Cannula 11/04 1599 96.9 69 21 151/67 95 Nasal 4.0L Cannula Intake & Output 11/04 1600 11/04 0800 11/04 0000 Intake Total 400 880 Output Total 1000 950 Balance -600 -70 Intake, Oral 400 880 Output, Urine 1000 950 Patient 373 lb 369 lb Weight Exam Other Physical Findings: Gen - alert and awake HEENT - NCAT CVS - S1, S2, no murmurs, rubs or gallops Lungs - bilateral scattered rhonchi Abdomen - soft, non-tender, bs+ Ext - edematous Impression/Plan Impression/Plan Impression/Plan: Impression 66-year-old man * Improved hypoxemic respiratory failure secondary to congestive heart disease with a preserved ejection fraction * Heart block status post pacemaker placement * History of COPD currently stable * Chronic hypercarbia OHS and DAGOBERTO on nocturnal BiPAP * Chronic venous stasis Plan - Awaiting telemetry downgrade currently telemetry hold - Nocturnal BiPAP as ordered - continue TRC nebs - Lasix and ins and outs as recommended by cardiology - 1L negative fluid balance - bp control - off abx - bowel regimen for constipation DVT prophylaxis at all times
--- NOTE | 2016-11-04 09:45 | PN- Cardiology ---
Subjective Subjective: The patient is awake, alert The events of the last 24 hours as well as telemetry were reviewed. Review of Systems: The review of systems is negative for chest pains, palpitations nor lightheadedness. The remainder of the 14 point review of systems is noncontributory with the exception of above. Objective Vital Signs and I&Os Vital Signs Date Time Temp Pulse Resp B/P B/P Pulse O2 O2 Flow FiO2 Mean Ox Delivery Rate 11/04 0800 95 Nasal 2.0L Cannula 11/04 0800 97.9 69 15 142/67 95 Nasal 2.0L Cannula 11/04 0445 86 100 11/04 0318 91 97 11/04 0059 86 97 11/04 0000 96.5 86 20 110/74 96 BIPAP 40% 11/04 0000 96 BIPAP 40% 11/03 2226 68 20 11/03 2225 67 20 11/03 2138 82 99 11/04 1999 96 Nasal 4.0L Cannula 11/04 1999 98.6 76 24 120/80 96 Nasal 4.0L Cannula 11/03 1631 60 151/67 11/03 1600 95 Nasal 4.0L Cannula 11/03 1600 96.9 69 21 151/67 95 Nasal 4.0L Cannula Intake & Output 11/04 1600 11/04 0800 11/04 0000 11/03 1600 11/03 0800 11/03 0000 Intake Total 400 880 515 100 150 Output Total 1000 950 488 790 0334 Balance -600 -70 -235 -200 -850 Intake, IV 15 Intake, Oral 400 880 500 100 150 Number 0 Bowel Movements Output, Urine 1000 950 409 370 3021 Patient 373 lb 369 lb Weight Physical Exam: General: Nontoxic, no apparent distress. HEENT: Sclera and conjunctiva within normal limits, without xanthelasmas. Neck: Carotids 2+ without bruits. Respiratory: Diffuse rhonchi and rales, air movement is decreased at bases, without accessory respiratory muscle use. Heart: Regular rate and rhythm, without murmurs, without JVD. Abdomen: Soft, nontender, no masses, normoactive bowel sounds. Extremities: Without clubbing, cyanosis, without edema. Neuro: Nonfocal exam, strength, 5 out of 5 Skin: Within normal limits without lesions. Psych: Mood and affect: Normal Current Medications: Current Medications Sig/Ji Start time Last Medication Dose Route Stop Time Status Admin Acetaminophen 650 MG .STK-MED ONE 11/03 1601 DC PO 11/03 1602 Acetaminophen 650 MG Q8P PRN 10/27 1500 AC 11/04 PO 0816 Albuterol Sulfate 3 ML Q4P PRN 10/27 1945 AC INH Aspirin Buffered 81 MG DAILY 10/28 1000 AC 11/03 PO 0833 Atorvastatin Calcium 20 MG 1700 10/27 1700 AC 11/03 PO 1615 Collagenase 1 SAM DAILY 11/03 1000 AC 11/03 TOP 0833 Docusate Sodium 100 MG BID 11/02 1000 AC 11/03 PO 2225 Furosemide 40 MG 7:30 AM, & 4:30 PM 10/27 1900 AC 11/04 IV 0633 Glycerin/Mineral Oil 1 SAM TID PRN 11/03 0800 AC 11/03 TOP 1024 Hydralazine HCl 25 MG TID 10/27 1600 AC 11/03 PO 2225 Levetiracetam 1,000 MG BID 11/02 1144 AC 11/03 PO 2226 Lisinopril 40 MG DAILY 10/27 1600 AC 11/03 PO 0834 Metoprolol Tartrate 25 MG BID 11/01 2200 AC 11/03 PO 2226 Nitroglycerin 0.4 MG 2200 11/03 2200 AC 11/03 TOP 2226 Nitroglycerin 0.4 MG DAILY 10/27 1548 DC 11/02 TOP 1254 Nystatin 1 SAM BID 10/27 2200 AC 11/03 TOP 2229 Potassium Chloride 20 MEQ BID 10/27 2200 AC 11/03 PO 2226 Results Last 48 Hrs of Labs/Mics: Laboratory Tests 11/03/16 0545: Anion Gap 8, Estimated GFR > 60, BUN/Creatinine Ratio 32.7 H, Magnesium 2.3, CBC w Diff NO MAN DIFF REQ, RBC 4.86, MCV 94.6 H, MCH 30.4, RDW 17.2 H, MPV 9.3, Gran % 64.5, Lymphocytes % 18.9 L, Monocytes % 10.8 H, Eosinophils % 5.5 H, Basophils % 0.3, Absolute Granulocytes 5.7, Absolute Lymphocytes 1.7, Absolute Monocytes 1.0 H, Absolute Eosinophils 0.5, Absolute Basophils 0, PUBS MCHC 32.1 L 11/02/16 1444: Anion Gap 13, Estimated GFR > 60, BUN/Creatinine Ratio 31.1 H Assessment/Plan Assessment/Plan 1. Acute hypoxemic respiratory failure, secondary to acute HFpEF, significantly improved. 2. Underlying heart block, s/p dual chamber pacemaker placement. 3. History of COPD, no evidence of bronchospasm at present. 4. Obesity hypoventilation/uncontrolled DAGOBERTO. Chronic hypercarbic respiratory failure. 5. Chronic venous stasis/lower extremity edema. 6. Minimally elevated troponin. 7. Hypertension. 8. Hyperlipidemia. Pacemaker function has been discussed with the patient. At this time, we would continue diuresis with a targeted net output of approximately 1 L per day. The patient may be transferred to a telemetry floor. Continue telemetry? Yes
[2016-11-04 16:00] VITALS: BP 145/77
[2016-11-05] VITALS: BP 169/68
--- NOTE | 2016-11-05 07:09 | PN- Resident CRCU ---
Subjective HPI/CRCU Issues: was seen and examined this morning. He is resting comfortably on the chair beside his bed. Reports no issues overnight. Continues to endorse mild right-sided pain in the upper chest area of where pacemaker was recently inserted. Patient denies any fever, chills, nausea, vomiting. He denies any dyspnea and dyspnea on exertion. He states he was able to have a bowel movement yesterday. 24 Hour Events: No Events Reported Objective Vital Signs & I&O Last 8 Hrs of Vitals and I&O: T: 97.9 RI: 79 BP: 126/62 Pulse Ox: 99% Exam General Appearance: well developed/nourished, no apparent distress, alert, awake , obese Cardiovascular: regular rate/rhythm, edema, Site of insertion, clean, dry and intact. Gastrointestinal: normal bowel sounds, soft, non-tender, distention Extremities: normal inspection, normal capillary refill Cranial Nerves: normal hearing, normal speech Skin: intact, normal color Other Physical Findings: Bilaterral Chronic Venour Statis and wound ulcers. Current Medications: Current Medications Sig/Ji Start time Last Medication Dose Route Stop Time Status Admin Acetaminophen 650 MG .STCleartrip-MED ONE 11/04 1646 DC PO 11/04 1647 Acetaminophen 650 MG Q8P PRN 10/27 1500 AC 11/04 PO 1659 Albuterol Sulfate 3 ML Q4P PRN 10/27 1945 AC INH Aspirin Buffered 81 MG DAILY 10/28 1000 AC 11/05 PO 1011 Atorvastatin Calcium 20 MG 1700 10/27 1700 AC 11/04 PO 1652 Collagenase 1 SAM DAILY 11/03 1000 AC 11/05 TOP 1013 Docusate Sodium 100 MG BID 11/02 1000 AC 11/05 PO 1011 Furosemide 40 MG 7:30 AM, & 4:30 PM 10/27 1900 AC 11/05 IV 0747 Glycerin/Mineral Oil 1 SAM TID PRN 11/03 0800 AC 11/04 TOP 1658 Hydralazine HCl 25 MG TID 10/27 1600 AC 11/05 PO 1011 Levetiracetam 1,000 MG BID 11/02 1144 AC 11/05 PO 1010 Lisinopril 40 MG DAILY 10/27 1600 AC 11/05 PO 1010 Metoprolol Tartrate 25 MG BID 11/01 2200 AC 11/05 PO 1010 Nitroglycerin 0.4 MG 2200 04/21 2200 AC 11/04 TOP 2300 Nystatin 1 SAM BID 10/27 220 DC 11/04 TOP 1115 Potassium Chloride 20 MEQ BID 10/27 2199 AC 11/05 PO 1014 Impression/Plan Impression/Problem List Impression: Mr Weaver is a 66 year old gentleman with PMH of HTN, HLD, diastolic HF, COPD , DAGOBERTO, cardiac arrest during a recent admission at [facility] in Jun 2016, who was brought in to the ED due to hypoxia, cyanosis, 2 days of SOB at rest and orthopnea. Patient is was also bradycardic since the previous admission in June and is supposed to have a pacemaker placed. Problem list and plan: Acute hypoxic hypercarbic respiratory failure - improved most likely due to CHF exacerbation currently down to 2L NC (was on bipap initially, then high flow NC till 10/31/16) , uses bipap at night * monitor Vital signs and O2 suppl as needed to keep SO2>92% * continue lasix 40 mg IV BID, will consider to switch to PO lasix, aim for net output of 0ne litre perday. First degree AV block and bradycardia Went to second degree mobitz I and II in the serial EKGs - s/p pacemaker on * repeat xray with better penetration to visualize the leads: 1. Right atrial and right ventricular pacer leads in place. 2. Bilateral small pleural effusions and associated bilateral lower lung consolidation/atelectasis. * stable to go to [facility] Chronic venous stasis ulcers dry 3x4 cm stage 1 ulcer on the left lower extremity and 1x1 ulcer on the right lower ext * wound consult in place * daily change of dressing with xeroform and kerlix History of HTN, HLD, seizure disorder * continue home medications : Keppra 1000 mg PO. Contiinue statin, lisinopril, Nitrogycerine Diet heart healthy diet DVT px heparin SC FULL CODE Problem List: 1. Hypoxia 2. Tachycardia 3. Dependent edema 4. Status post placement of cardiac pacemaker Pain Ratin Tomorrow's Labs & Rationales: CBC ICU bundle Plan DVT/Prophylaxis: pharmacological
[2016-11-05 08:00] VITALS: BP 126/62
--- NOTE | 2016-11-05 08:45 | PN- Pulmonary ---
Subjective HPI/Critical Care Issues: pt seen and examined tele hold afebrile hypertensive on bipap overnight doing well and comfortable Objective Current Medications: Current Medications Sig/Ji Start time Last Medication Dose Route Stop Time Status Admin Acetaminophen 650 MG .STK-MED ONE 11/04 1646 DC PO 11/04 1647 Acetaminophen 650 MG Q8P PRN 10/27 1500 AC 11/04 PO 1659 Albuterol Sulfate 3 ML Q4P PRN 10/27 1945 AC INH Aspirin Buffered 81 MG DAILY 10/28 1000 AC 11/04 PO 1115 Atorvastatin Calcium 20 MG 1700 10/27 1700 AC 11/04 PO 1652 Collagenase 1 SAM DAILY 11/03 1000 AC 11/04 TOP 1113 Docusate Sodium 100 MG BID 11/02 1000 AC 11/04 PO 1113 Furosemide 40 MG 7:30 AM, & 4:30 PM 10/27 1900 AC 11/05 IV 0747 Glycerin/Mineral Oil 1 SAM TID PRN 11/03 0800 AC 11/04 TOP 1658 Hydralazine HCl 25 MG TID 10/27 1600 AC 11/04 PO 2259 Levetiracetam 1,000 MG BID 11/02 1144 AC 11/04 PO 2259 Lisinopril 40 MG DAILY 10/27 1600 AC 11/04 PO 1113 Metoprolol Tartrate 25 MG BID 11/01 2200 AC 11/04 PO 2300 Nitroglycerin 0.4 MG 0 11/03 2200 AC 11/04 TOP 2300 Nystatin 1 SAM BID 10/27 2200 DC 11/04 TOP 1115 Potassium Chloride 20 MEQ BID 10/27 2200 AC 11/04 PO 2259 Vital Signs & I&O Last 24 Hrs of Vitals and I&O: Vital Signs Date Time Temp Pulse Resp B/P B/P Pulse O2 O2 Flow FiO2 Mean Ox Delivery Rate 11/05 0322 96 99 11/05 0032 73 99 11/05 0000 97.7 97 24 169/68 98 BIPAP 40% 11/05 0000 98 BIPAP 40% 11/04 2300 81 140/80 11/04 2259 81 140/80 11/04 1657 95 145/77 11/04 1600 96 Nasal 2.0L Cannula 11/04 1600 97.3 94 24 145/77 94 Nasal 2.0L Cannula 11/04 1115 79 142/67 11/04 1114 76 142/67 11/04 1113 67 142 Intake & Output 11/05 1600 11/05 0800 11/05 0000 Intake Total 120 240 Output Total 550 1300 Balance -430 -1060 Intake, IV 0 0 Intake, Oral 120 240 Number 0 1 Bowel Movements Output, Urine 550 1300 Exam Other Physical Findings: Gen - alert and awake HEENT - NCAT CVS - S1, S2, no murmurs, rubs or gallops Lungs - bilateral scattered rhonchi Abdomen - soft, non-tender, bs+ Ext - edematous Results Last 24 Hrs of Lab Results: Laboratory Tests 11/05/16 0415: Anion Gap 11, Estimated GFR > 60, Glucose 103 H, Calcium 8.2 L, Phosphorus 3.4 , Magnesium 2.0, Total Bilirubin 1.0, AST 29, ALT 39, Albumin 3.2 L Impression/Plan Impression/Plan Impression/Plan: Impression 66-year-old man * Improved hypoxemic respiratory failure secondary to congestive heart disease with a preserved ejection fraction * Heart block status post pacemaker placement * History of COPD currently stable * Chronic hypercarbia OHS and DAGOBERTO on nocturnal BiPAP * Chronic venous stasis Plan - Awaiting telemetry downgrade currently telemetry hold - Nocturnal BiPAP as ordered - continue TRC nebs - Lasix and ins and outs as recommended by cardiology - 1L negative fluid balance - bp control - off abx - bowel regimen for constipation DVT prophylaxis at all times
--- NOTE | 2016-11-05 11:35 | PN- Cardiology ---
Subjective Subjective: The patient is awake, alert The events of the last 24 hours as well as telemetry were reviewed. Review of Systems: The review of systems is negative for chest pains, palpitations nor lightheadedness. The remainder of the 14 point review of systems is noncontributory with the exception of above. Objective Vital Signs and I&Os Vital Signs Date Time Temp Pulse Resp B/P B/P Pulse O2 O2 Flow FiO2 Mean Ox Delivery Rate 11/05 1011 79 126/62 11/05 1010 79 126/62 11/05 1010 79 126/62 11/05 0322 96 99 11/05 0032 73 99 11/05 0000 97.7 97 24 169/68 98 BIPAP 40% 11/05 0000 98 BIPAP 40% 11/04 2300 81 140/80 11/04 2259 81 140/80 11/04 1657 95 145/77 11/04 1600 96 Nasal 2.0L Cannula 11/04 1600 97.3 94 24 145/77 94 Nasal 2.0L Cannula Intake & Output 11/05 1600 11/05 0800 11/05 0000 11/04 1600 11/04 0800 11/04 0000 Intake Total 120 240 415 400 880 Output Total 550 8816 460 4034 950 Balance -430 -1060 -385 -600 -70 Intake, IV 0 0 15 Intake, Oral 120 240 400 400 880 Number 0 1 1 Bowel Movements Output, Urine 550 1746 966 9600 950 Patient 373 lb 369 lb Weight Physical Exam: General: Nontoxic, no apparent distress. HEENT: Sclera and conjunctiva within normal limits, without xanthelasmas. Neck: Carotids 2+ without bruits. Respiratory: Clear to auscultation, air movement is good, without accessory respiratory muscle use. Heart: Regular rate and rhythm, without murmurs, without JVD, pacemaker site appears within normal limits. Abdomen: Soft, nontender, no masses, normoactive bowel sounds. Extremities: Without clubbing, cyanosis, without edema. Neuro: Nonfocal exam, strength, 5 out of 5 Skin: Within normal limits without lesions. Psych: Mood and affect: Normal Current Medications: Current Medications Sig/Ji Start time Last Medication Dose Route Stop Time Status Admin Acetaminophen 650 MG .STK-MED ONE 11/04 1646 DC PO 11/04 1647 Acetaminophen 650 MG Q8P PRN 04/14 1500 AC 11/04 PO 1659 Albuterol Sulfate 3 ML Q4P PRN 10/27 1945 AC INH Aspirin Buffered 81 MG DAILY 10/28 1000 AC 11/05 PO 1011 Atorvastatin Calcium 20 MG 1700 10/27 1700 AC 11/04 PO 1652 Collagenase 1 SAM DAILY 11/03 1000 AC 11/05 TOP 1013 Docusate Sodium 100 MG BID 11/02 1000 AC 11/05 PO 1011 Furosemide 40 MG 7:30 AM, & 4:30 PM 10/27 1900 AC 11/05 IV 0747 Glycerin/Mineral Oil 1 SAM TID PRN 11/03 0800 AC 11/04 TOP 1658 Hydralazine HCl 25 MG TID 10/27 1600 AC 11/05 PO 1011 Levetiracetam 1,000 MG BID 11/02 1144 AC 11/05 PO 1010 Lisinopril 40 MG DAILY 10/27 1600 AC 11/05 PO 1010 Metoprolol Tartrate 25 MG BID 11/01 2200 AC 11/05 PO 1010 Nitroglycerin 0.4 MG 0 11/03 2200 AC 11/04 TOP 2300 Nystatin 1 SAM BID 10/27 2200 DC 11/04 TOP 1115 Potassium Chloride 20 MEQ BID 10/27 2200 AC 11/05 PO 1014 Results Last 48 Hrs of Labs/Mics: Laboratory Tests 11/05/16 0415: Anion Gap 11, Estimated GFR > 60, Glucose 103 H, Calcium 8.2 L, Phosphorus 3.4 , Magnesium 2.0, Total Bilirubin 1.0, AST 29, ALT 39, Albumin 3.2 L Assessment/Plan Assessment/Plan 1. Acute hypoxemic respiratory failure, secondary to acute HFpEF, significantly improved. 2. Underlying heart block, s/p dual chamber pacemaker placement. 3. History of COPD, no evidence of bronchospasm at present. 4. Obesity hypoventilation/uncontrolled DAGOBERTO. Chronic hypercarbic respiratory failure. 5. Chronic venous stasis/lower extremity edema. 6. Minimally elevated troponin. 7. Hypertension. 8. Hyperlipidemia. Pacemaker function has been discussed with the patient, as well as pacemaker decision site care. At this time, we would continue diuresis with a targeted net output of approximately 1 L per day. The patient may be transferred to a telemetry floor. Continue telemetry? No
[2016-11-05 16:00] VITALS: BP 134/70
[2016-11-06] VITALS: BP 140/68
[2016-11-06 05:00] LABS: ABSOLUTE BASOPHIL COUNT 0 /CUMM (0.0-0.2); ABSOLUTE EOSINOPHIL COUNT 0.4 /CUMM (0.0-0.7); ABSOLUTE LYMPH COUNT 1.5 /CUMM (1.2-3.4); BASOPHIL % 0.4 % (0.0-2.0); EOSINOPHIL % 3.6 % (0-5); GRANULOCYTE % 70.6 % (42.2-75.2); HEMATOCRIT 45.8 % (42-52); MEAN CORPUSCULAR HGB 30.3 PG (27.0-31.0); MEAN CORPUSCULAR HGB CONC 32.2 G/DL (33.0-37.0); MEAN CORPUSCULAR VOLUME 94.3 FL (80.0-94.0); MEAN PLATELET VOLUME 9.7 FL (7.4-10.4); PLATELET COUNT 141 /CUMM (130-400); RBC DISTRIBUTION WIDTH 17.4 % (11.5-14.5); RED BLOOD CELL CT 4.86 /CUMM (4.70-6.10); WHITE BLOOD CELL COUNT 9.9 /CUMM (4.8-10.8)
--- NOTE | 2016-11-06 07:37 | PN- Housestaff ---
Subjective Follow-up For: 1. Acute hypoxic respiratory failure due to CHF exacerbation - improved 2. Bradycardia and heart block - s/p pacemaker placement 3. DAGOBERTO, hisotory of COPD 4. HTN, HLD Tele-Events Since Last Visit: bradycardia down to 34 to 40 overnight. Subjective: Patient is sitting comfortably in bed, alert and oriented. Still complains of numbness and tingling in the right arm. Review of Systems Constitutional: Denies: chills, weakness. EENTM: Reports: no symptoms. Cardiovascular: Denies: chest pain, palpitations. Respiratory: Denies: cough, short of breath. Gastrointestinal: Denies: abdominal pain, changes in stool. Genitourinary: Reports: no symptoms. Musculoskeletal: Denies: back pain, muscle pain. Skin: Reports: rash (on the face). Neurological/Psychological: Reports: no symptoms. Hematologic/Endocrine: Reports: no symptoms. Objective Last 24 Hrs of Vital Signs/I&O Vital Signs Date Time Temp Pulse Resp B/P B/P Pulse O2 O2 Flow FiO2 Mean Ox Delivery Rate 11/06 08 96.9 76 20 136/70 92 Nasal 2.0L Cannula 11/06 0248 73 96 11/06 0055 76 96 11/06 0000 99 BIPAP 40% 11/06 0000 97.4 74 20 140/68 99 BIPAP 40% 11/05 2234 62 95 11/05 2156 90 144/74 11/05 2156 90 144/74 11/05 1648 82 134/70 11/05 1600 97.1 68 18 134/70 98 Room Air 11/05 1011 79 126/62 11/05 1010 79 126/62 11/05 1010 79 126/62 Intake & Output 11/06 1600 11/06 0800 11/06 0000 Intake Total 720 1200 Output Total 1050 1100 Balance -330 100 Intake, Oral 720 1200 Number 1 2 Bowel Movements Output, Urine 1050 1100 Patient 156.489 kg Weight Weight Bed scale Measurement Method Physical Exam General Appearance: Alert, Oriented X3, Cooperative, No Acute Distress Skin: venous stasis changes on both lower extremities, there is a dry left lower leg ulcer. Also 2 small areas of stage 1 skin ulcer that is treated with xeroform and kerlix on the right lower leg., tenderness over subcutaneous pacemaker on the right upper chest Skin Temp/Moisture Exam: Warm/Dry Sepsis Skin Exam (color): Normal for Ethnicity HEENT: Atraumatic, EOMI, Mucous Membr. moist/pink Neck: Supple, No JVD Cardiovascular: Normal S1, Normal S2 Lungs: Clear to Auscultation, Normal Air Movement Abdomen: Soft, No Tenderness Neurological: Normal Speech, Normal Tone Extremities: 1+ pitting edema Vascular: Pulses Symmetrical Current Medications: Current Medications Sig/Ji Start time Last Medication Dose Route Stop Time Status Admin Acetaminophen 650 MG Q8P PRN 10/27 1500 AC 11/04 PO 1659 Albuterol Sulfate 3 ML Q4P PRN 10/27 1945 AC INH Aspirin Buffered 81 MG DAILY 10/28 1000 AC 11/05 PO 1011 Atorvastatin Calcium 20 MG 1700 10/27 1700 AC 11/05 PO 1648 Collagenase 1 SAM DAILY 11/03 1000 AC 11/05 TOP 1013 Docusate Sodium 100 MG BID 11/02 1000 AC 11/05 PO 2155 Furosemide 40 MG 7:30 AM, & 4:30 PM 10/27 1900 AC 11/06 IV 0818 Glycerin/Mineral Oil 1 SAM TID PRN 11/03 0800 AC 11/04 TOP 1658 Hydralazine HCl 25 MG TID 10/27 1600 AC 11/05 PO 2156 Levetiracetam 1,000 MG BID 11/02 1144 AC 11/05 PO 2155 Lisinopril 40 MG DAILY 10/27 1600 AC 11/05 PO 1010 Magnesium Citrate 300 ML ONE ONE 11/05 1515 DC 11/05 PO 11/05 1516 1539 Metoprolol Tartrate 25 MG BID 11/01 2200 AC 11/05 PO 2156 Nitroglycerin 0.4 MG 11/03 2200 AC 11/05 TOP 2156 Polyethylene Glycol 17 GM DAILY 11/05 1507 AC PO Potassium Chloride 20 MEQ BID 10/27 2200 AC 11/05 PO 2156 Last 24 Hrs of Lab/Heriberto Results Last 24 Hrs of Labs/Mics: Laboratory Tests 11/06/16 0420: Anion Gap 9, Estimated GFR > 60, Glucose 107 H, Calcium 8.6, Phosphorus 4.2, Magnesium 2.3, Total Bilirubin 1.1, AST 30, ALT 43, Albumin 3.4 L, CBC w Diff NO MAN DIFF REQ, RBC 4.86, MCV 94.3 H, MCH 30.3, RDW 17.4 H, MPV 9.7, Gran % 70.6, Lymphocytes % 15.0 L, Monocytes % 10.4 H, Eosinophils % 3.6, Basophils % 0.4, Absolute Granulocytes 7.0 H, Absolute Lymphocytes 1.5, Absolute Monocytes 1.0 H, Absolute Eosinophils 0.4, Absolute Basophils 0, PUBS MCHC 32.2 L Assessment/Plan Assessment: Patient is a 66 year old gentleman with PMH of HTN, HLD, diastolic HF, COPD, DAGOBERTO , cardiac arrest during a recent admission at [facility] in Jun 2016, who was brought in to the ED due to hypoxia, cyanosis, 2 days of SOB at rest and orthopnea. Patient is also bradycardic since the previous admission in June and was supposed to have a pacemaker placed, patient came to the ED due to increased work of breathing and leg swelling as well as dizziness. He was initally admitted to the ICU for close monitoring; His EKG revealed mobitz type 2 and questionable thrid degree heart block. He had defibrillater at bedside with pads on. Patient had pacemaker placed on 11/01/16. He is downgraded to telemetry since 11/02/16. patient is also receiving IV lasix for CHF exacerbation. Mr. Weaver is moved to [facility] this evening, we updated family (his , Rebecca) regarding the move. He is going to get Bipap at home with the setting ordered, please touch base with the human services case manager tomorrow. Please also touch base with cardiology regarding the discharge dose for lasix (home dose is: 40 mg BID) Problem list and plan: Acute hypoxic hypercarbic respiratory failure - resolved most likely due to CHF exacerbation currently remains on 4L NC (was on bipap initially, then high flow NC till ). Patient does not use O2 at home and is supposed to get Bipap vs CPAP at night (for DAGOBERTO) * monitor Vital signs and O2 suppl as needed to keep SO2>92% * continue lasix 40 mg IV BID, will consider to switch to PO lasix First degree AV block and bradycardia - resolved - s/p pacemaker Went to second degree mobitz I and II in the serial EKGs - s/p pacemaker on Repeat xray: Right atrial and right ventricular pacer leads in place. Bilateral small pleural effusions and associated bilateral lower lung consolidation/ atelectasis. * stable to go to tele * continue TRC nebs * watch off antibiotics Chronic venous stasis ulcers and a decubitus ulcer dry 3x4 cm stage 1 ulcer on the left lower extremity and 1x1 ulcer on the right lower ext also there is a 4x5 cm ulcer on the medial of right buttock with black eshcar * wound consult in place * daily change of dressing with xeroform and kerlix on the right lower ext * santyl and xeroform on the right buttock ulcer Right arm swelling started 11/03/15 in the pm, RUE venuos doppler was negative for DVT, arm is still slightly swollen and pt reports numbness and tingling. no weakness, and ROM of the arm and hand are normal. * discontinued the IV line on that arm * encouraged arm elevation Facial skin rash Patient has erythematous and scaling rashes on the skin, denies history of psoriasis. rash resemble rosacea. He uses lubricants at home on the skin. * apply Lubriderm patch on the face History of HTN, HLD, seizure disorder * continue home medications: keppra switched from IV to PO, statin, lisinopril Heart healthy diet Mild pain pathway DVT px heparin SC FULL CODE Problem List: 1. Status post placement of cardiac pacemaker 2. Bradycardia 3. First degree AV block 4. Second degree AV block, Mobitz type II 5. Acute exacerbation of CHF (congestive heart failure) 6. Seizure disorder Pain Ratin Pain Location: no pain currently Pain Goal: Pain 4 or less Pain Plan: mild pain pathway, tylenol PRN Tomorrow's Labs & Rationales: BEP and Mg (to monitor electrolyets)
[2016-11-06 08:00] VITALS: BP 136/70
--- NOTE | 2016-11-06 08:28 | PN- Wound Care ---
Subjective Subjective: And feels improved without complaint Objective Vital Signs and I&Os Vital Signs Result Date Time Pulse Ox 92 11/07 799 B/P 136/70 11/07 799 O2 Delivery Nasal Cannula 11/07 799 O2 Flow Rate 2.0L 11/07 799 Temp 96.9 11/06 08 Pulse 76 11/06 08 Resp 20 11/06 08 Intake & Output 11/06 0000 11/05 1600 11/05 0800 Intake Total 1200 610 120 Output Total 1100 1250 550 Balance 100 -640 -430 Intake, IV 30 0 Intake, Oral 1200 580 120 Number 2 0 0 Bowel Movements Output, Urine 1100 1250 550 Right buttock unstageable wound remains. The slough is thinning with enzymatic debridement and offloading. Impression/Plan Impression/Plan Impression/Plan: T6-year-old gentleman morbidly obese history of chronic edema and venous insufficiency has bilateral venous stasis ulcers present on admission. Elevate his legs to the extent feasible wound care is Xeroform and gauze dressings with daily cleansing. Is developed an unstageable right buttock ulcer secondary to pressure. Recommendation is made for initial trial enzymatic debridement with Santyl Xeroform and offloading of the area. If this fails to improve formal surgical debridement will be necessary. Wound appears to be improving and would continue Santyl Xeroform and offloading. bilateral lower extremity venous ulcers are healed
--- NOTE | 2016-11-06 08:31 | PN- Pulmonary ---
Subjective HPI/Critical Care Issues: The patient is awake and alert. He reports feeling improved overall. He continues to be on IV Lasix for negative fluid balance. He continues to get out of bed to chair on a regular basis. He offers no new complaints today. Objective Current Medications: Current Medications Sig/Ji Start time Last Medication Dose Route Stop Time Status Admin Acetaminophen 650 MG Q8P PRN 10/27 1500 AC 11/04 PO 1659 Albuterol Sulfate 3 ML Q4P PRN 10/27 1945 AC INH Aspirin Buffered 81 MG DAILY 10/28 1000 AC 11/05 PO 1011 Atorvastatin Calcium 20 MG 1700 10/27 1700 AC 11/05 PO 1648 Collagenase 1 SAM DAILY 11/03 1000 AC 11/05 TOP 1013 Docusate Sodium 100 MG BID 11/02 1000 AC 11/05 PO 2155 Furosemide 40 MG 7:30 AM, & 4:30 PM 10/27 1900 AC 11/06 IV 0818 Glycerin/Mineral Oil 1 SAM TID PRN 11/03 0800 AC 11/04 TOP 1658 Hydralazine HCl 25 MG TID 10/27 1600 AC 11/05 PO 2156 Levetiracetam 1,000 MG BID 11/02 1144 AC 11/05 PO 2155 Lisinopril 40 MG DAILY 10/27 1600 AC 11/05 PO 1010 Magnesium Citrate 300 ML ONE ONE 11/05 1515 DC 11/05 PO 11/05 1516 1539 Metoprolol Tartrate 25 MG BID 11/01 2200 AC 11/05 PO 2156 Nitroglycerin 0.4 MG 2200 11/03 2200 AC 11/05 TOP 2156 Polyethylene Glycol 17 GM DAILY 11/05 1507 AC PO Potassium Chloride 20 MEQ BID 10/27 2200 AC 11/05 PO 2156 Vital Signs & I&O Last 24 Hrs of Vitals and I&O: Vital Signs Date Time Temp Pulse Resp B/P B/P Pulse O2 O2 Flow FiO2 Mean Ox Delivery Rate 11/06 0800 96.9 76 20 136/70 92 Nasal 2.0L Cannula 11/06 0248 73 96 11/06 0055 76 96 11/06 0000 99 BIPAP 40% 11/06 0000 97.4 74 20 140/68 99 BIPAP 40% 11/05 2234 62 95 11/05 215 90 144/74 11/05 215 90 144/74 11/05 1648 82 134/70 11/05 1600 97.1 68 18 134/70 98 Room Air 11/05 1011 79 126/62 11/05 1010 79 126/62 11/05 1010 79 62 Intake & Output 11/06 1600 11/06 0800 11/06 0000 Intake Total 720 1200 Output Total 1050 1100 Balance -330 100 Intake, Oral 720 1200 Number 1 2 Bowel Movements Output, Urine 1050 1100 Patient 345 lb Weight Weight Bed scale Measurement Method Physical Exam General Appearance Alert and oriented, no distress, on nasal cannula HEENT Atraumatic Neck Supple Cardiovascular Regular Rate, No Murmurs, distant heart sounds Lungs Decreased breath sounds, scattered rhonchi and crackles Abdomen Soft, No Tenderness, obese Extremities pitting edema on lower extremities Results Last 24 Hrs of Lab Results: Laboratory Tests 11/06/16 0420: Anion Gap 9, Estimated GFR > 60, Glucose 107 H, Calcium 8.6, Phosphorus 4.2, Magnesium 2.3, Total Bilirubin 1.1, AST 30, ALT 43, Albumin 3.4 L, CBC w Diff NO MAN DIFF REQ, RBC 4.86, MCV 94.3 H, MCH 30.3, RDW 17.4 H, MPV 9.7, Gran % 70.6, Lymphocytes % 15.0 L, Monocytes % 10.4 H, Eosinophils % 3.6, Basophils % 0.4, Absolute Granulocytes 7.0 H, Absolute Lymphocytes 1.5, Absolute Monocytes 1.0 H, Absolute Eosinophils 0.4, Absolute Basophils 0, PUBS MCHC 32.2 L Impression/Plan Impression/Plan Impression/Plan: 1. Acute hypoxemic respiratory failure, secondary to acute HFpEF, on IV Lasix. 2. Underlying heart block, s/p dual chamber pacemaker placement. 3. History of COPD, no evidence of bronchospasm at present. 4. OHS/DAGOBERTO. Chronic hypercarbic respiratory failure, on nocturnal bipap. 5. Chronic venous stasis/lower extremity edema. 6. Minimally elevated troponin. 7. Hypertension. 8. Hyperlipidemia. 9. Constipation. Recommendations: * Continue to wean supplemental oxygen down, to maintain saturations greater than 92%. * Continue nocturnal BiPAP. * Continue nebs/TRC. * Diuresis as recommended by cardiology. * Continue medication for blood pressure control. * Monitor off antibiotics. * PT consult, out of bed to chair daily. * Continue bowel regimen. * DVT prophylaxis at all times. * Discharge planning. * Continue telemetry monitoring.
--- NOTE | 2016-11-06 09:58 | PN- Cardiology ---
Subjective Subjective: The patient continues to improve. He continues to diuresis. He is satting reasonably well on 2 L of oxygen. There are no issues with the pacemaker. Objective Vital Signs and I&Os Vital Signs Date Time Temp Pulse Resp B/P B/P Pulse O2 O2 Flow FiO2 Mean Ox Delivery Rate 11/06 0800 Nasal 2.0L Cannula 11/06 0800 96.9 76 20 136/70 92 Nasal 2.0L Cannula 11/06 0248 73 96 11/06 0055 76 96 11/06 0000 99 BIPAP 40% 11/06 0000 97.4 74 20 140/68 99 BIPAP 40% 11/05 2234 62 95 11/05 2156 90 144/74 11/05 2156 90 144/74 11/05 1648 82 134/70 11/05 1600 97.1 68 18 134/70 98 Room Air 11/05 1011 79 126/62 11/05 1010 79 126/62 11/05 1010 79 126/62 Intake & Output 11/06 1600 11/06 0800 11/06 0000 11/05 1600 11/05 0800 11/05 0000 Intake Total 720 1200 610 120 240 Output Total 200 1050 1100 6274 804 9073 Balance -200 -330 100 -640 -430 -1060 Intake, IV 30 0 0 Intake, Oral 720 1200 580 120 240 Number 1 1 2 0 0 1 Bowel Movements Output, Urine 200 1050 1100 [id number] Patient 345 lb Weight Weight Bed scale Measurement Method Physical Exam: HEENT exam is normal Chest reveals decreased breath sounds Heart soft heart sounds no murmurs. Pacemaker site looks good Extremities with decreasing edema Current Medications: Current Medications Sig/Ji Start time Last Medication Dose Route Stop Time Status Admin Acetaminophen 650 MG Q8P PRN 10/27 1500 AC 11/04 PO 1659 Albuterol Sulfate 3 ML Q4P PRN 10/27 1945 AC INH Aspirin Buffered 81 MG DAILY 10/28 1000 AC 11/05 PO 1011 Atorvastatin Calcium 20 MG 1700 10/27 1700 AC 11/05 PO 1648 Collagenase 1 SAM DAILY 11/03 1000 AC 11/05 TOP 1013 Docusate Sodium 100 MG BID 11/02 1000 AC 11/05 PO 2155 Furosemide 40 MG 7:30 AM, & 4:30 PM 10/27 1900 AC 11/06 IV 0818 Glycerin/Mineral Oil 1 SAM TID PRN 11/03 0800 AC 11/04 TOP 1658 Hydralazine HCl 25 MG TID 10/27 1600 AC 11/05 PO 215 Levetiracetam 1,000 MG BID 11/02 1144 AC 11/05 PO 215 Lisinopril 40 MG DAILY 10/27 1600 AC 11/05 PO 1010 Magnesium Citrate 300 ML ONE ONE 11/05 1515 DC 11/05 PO 11/05 1516 1539 Metoprolol Tartrate 25 MG BID 11/01 2199 AC 11/05 PO 215 Nitroglycerin 0.4 MG 11/03 2200 AC 11/05 TOP 215 Polyethylene Glycol 17 GM DAILY 11/05 1507 AC PO Potassium Chloride 20 MEQ BID 10/27 2199 AC 11/05 PO 215 Results Last 48 Hrs of Labs/Mics: Laboratory Tests 11/06/16 0420: Anion Gap 9, Estimated GFR > 60, Glucose 107 H, Calcium 8.6, Phosphorus 4.2, Magnesium 2.3, Total Bilirubin 1.1, AST 30, ALT 43, Albumin 3.4 L, CBC w Diff NO MAN DIFF REQ, RBC 4.86, MCV 94.3 H, MCH 30.3, RDW 17.4 H, MPV 9.7, Gran % 70.6, Lymphocytes % 15.0 L, Monocytes % 10.4 H, Eosinophils % 3.6, Basophils % 0.4, Absolute Granulocytes 7.0 H, Absolute Lymphocytes 1.5, Absolute Monocytes 1.0 H, Absolute Eosinophils 0.4, Absolute Basophils 0, PUBS MCHC 32.2 L 11/05/16 0415: Anion Gap 11, Estimated GFR > 60, Glucose 103 H, Calcium 8.2 L, Phosphorus 3.4 , Magnesium 2.0, Total Bilirubin 1.0, AST 29, ALT 39, Albumin 3.2 L Assessment/Plan Assessment/Plan The patient is doing well. His pacemaker is functioning well and the wound looks good. He is diuresing and his pulmonary status is improving. From a cardiac standpoint he can be discharged, depending on pulmonary input. Continue telemetry? Yes
[2016-11-06 17:18] VITALS: BP 148/76
[2016-11-06 23:58] VITALS: BP 122/78
--- NOTE | 2016-11-07 07:31 | PN- Housestaff ---
Subjective Follow-up For: Acute hypoxemic and hypercapnic respiratory failure Tele-Events Since Last Visit: Single and dual pacing HR 70-84 PVCs and 3 ectopic beats at 6 AM Subjective: No acute events overnight. Patient seen and examined this morning. He feels good and has no complaints. He denies shortness of breath. Review of Systems Constitutional: Reports: see HPI. Objective Last 24 Hrs of Vital Signs/I&O Vital Signs Date Time Temp Pulse Resp B/P B/P Pulse O2 O2 Flow FiO2 Mean Ox Delivery Rate 11/07 1710 98.7 11/07 1710 61 130/70 11/07 1638 99.1 98 20 130/70 97 Nasal 1.0L Cannula 11/07 0950 90 150/88 11/07 0950 90 150/88 11/07 0950 90 150/88 11/07 0800 95 Nasal 2.0L Cannula 11/07 08 98.9 83 18 142/98 94 Nasal 1.0L Cannula 11/07 0630 70 98 11/07 0442 81 11/07 0134 71 98 11/07 0000 95 BIPAP 40% 11/06 2358 99.6 64 20 122/78 95 Nasal Cannula 11/06 2048 75 144/60 11/06 204 75 144/60 Intake & Output 11/07 1600 11/07 0800 11/07 0000 Intake Total 640 200 600 Output Total 0041 847 1752 Balance -810 -150 -1650 Intake, Oral 640 200 600 Number 1 Bowel Movements Output, Urine 1890 [id number] [id number] Patient 169.644 kg Weight Weight Bed scale Measurement Method Physical Exam General Appearance: Alert, Oriented X3, No Acute Distress HEENT: Atraumatic, Mucous Membr. moist/pink Neck: Supple Cardiovascular: Regular Rate, Normal S1, Normal S2, No Murmurs, Gallops, Rubs Lungs: Diminished Breath Sounds Abdomen: Soft, No Tenderness, Positive Bowel Sounds, Obese Extremities: No Clubbing, No Cyanosis, Trace Pitting Edema on Bilateral Lower Extremities Current Medications: Current Medications Sig/Ji Start time Last Medication Dose Route Stop Time Status Admin Acetaminophen 650 MG Q8P PRN 10/27 1500 AC 11/07 PO 1243 Albuterol Sulfate 3 ML Q4P PRN 10/27 1945 AC INH Aspirin Buffered 81 MG DAILY 10/28 1000 AC 11/07 PO 0949 Atorvastatin Calcium 20 MG 1700 10/27 1700 AC 11/07 PO 1710 Collagenase 1 SAM DAILY 11/03 1000 AC 11/07 TOP 1244 Docusate Sodium 100 MG BID 11/02 1000 AC 11/07 PO 0950 Furosemide 80 MG DAILY 11/08 1000 AC PO Furosemide 40 MG 7:30 AM, & 4:30 PM 10/27 1900 DC 11/07 IV 0829 Glycerin/Mineral Oil 1 SAM TID PRN 11/03 0800 AC 11/04 TOP 1658 Hydralazine HCl 25 MG TID 10/27 1600 AC 11/07 PO 1710 Levetiracetam 1,000 MG BID 11/02 1144 AC 11/07 PO 0950 Lisinopril 40 MG DAILY 10/27 1600 AC 11/07 PO 0950 Metoprolol Tartrate 25 MG BID 11/01 220 AC 11/07 PO 0950 Nitroglycerin 0.4 MG 0 11/03 2200 AC 11/06 TOP 2043 Patient Medication 1 ED .STK-MED ONE 11/07 1352 IA Teaching ED 11/07 1353 Polyethylene Glycol 17 GM DAILY 11/05 1507 AC 11/07 PO 0951 Potassium Chloride 20 MEQ BID 10/27 2200 AC 11/07 PO 0950 Last 24 Hrs of Lab/Heriberto Results Last 24 Hrs of Labs/Mics: Laboratory Tests 11/07/16 0834: Anion Gap 9, Estimated GFR > 60, BUN/Creatinine Ratio 25.0, Magnesium 2.2 Assessment/Plan Assessment: 66 y/o M with PMHx of diastolic CHF, COPD, obesity hypoventilation syndrome and DAGOBERTO who is admitted for acute on chronic hypoxemic and hypercapnic respiratory failure. #Acute on chronic hypoxic hypoxemic and hypercapnic respiratory failure: [place] to be secondary to acute on chronic HFpEF. Resolved with aggressive IV diuresis. Currently requiring 1-2 L NC. * Patient stable to be discharged from cardiology and pulmonology standpoint. * nonprofit manager currently working on getting nocturnal BiPAP as patient will need it on discharge. * Discontinue IV Lasix. * Start Lasix 80 mg PO daily in the AM. * Continue PT and out of bed to chair daily. * Continue TRC/nebs. * Continue nocturnal BiPAP. * Provide supplemental oxygen as needed to keep SpO2 > 92%. Diet: Heart Healthy DVT PPx: ALPs CODE: FULL Problem List: 1. Acute on chronic respiratory failure with hypoxia and hypercapnia 2. First degree AV block 3. Status post placement of cardiac pacemaker 4. Acute exacerbation of CHF (congestive heart failure) Pain Ratin Pain Location: N/A Pain Goal: Remain pain free Pain Plan: Tylenol 650 mg PO Q8H PRN Tomorrow's Labs & Rationales: BMP to monitor lytes and kidney function in the setting of CHF and diuresis Discharge Plan Discharge Disposition: home Anticipated Discharge (Day): tomorrow
[2016-11-07 08:00] VITALS: BP 142/98
--- NOTE | 2016-11-07 09:24 | PN- Pulmonary ---
Subjective HPI/Critical Care Issues: The patient is awake and alert. He reports feeling markedly improved. He has been out of bed and ambulating better with assistance. He complains of frequent urination with Lasix. The patient otherwise denies any new complaints. Objective Current Medications: Current Medications Sig/Ji Start time Last Medication Dose Route Stop Time Status Admin Acetaminophen 650 MG Q8P PRN 10/27 1500 AC 11/04 PO 1659 Albuterol Sulfate 3 ML Q4P PRN 10/27 1945 AC INH Aspirin Buffered 81 MG DAILY 10/28 1000 AC 11/06 PO 1039 Atorvastatin Calcium 20 MG 1700 10/27 1700 AC 11/06 PO 1640 Collagenase 1 SAM DAILY 11/03 1000 AC 11/06 TOP 0900 Docusate Sodium 100 MG BID 11/02 1000 AC 11/06 PO 2043 Furosemide 40 MG 7:30 AM, & 4:30 PM 10/27 1900 AC 11/07 IV 0829 Glycerin/Mineral Oil 1 SAM TID PRN 11/03 0800 AC 11/04 TOP 1658 Hydralazine HCl 25 MG TID 10/27 1600 AC 11/06 PO 2048 Levetiracetam 1,000 MG BID 11/02 1144 AC 11/06 PO 2043 Lisinopril 40 MG DAILY 10/27 1600 AC 11/06 PO 1039 Metoprolol Tartrate 25 MG BID 11/01 2200 AC 11/06 PO 2048 Nitroglycerin 0.4 MG 11/03 2200 AC 11/06 TOP 2043 Polyethylene Glycol 17 GM DAILY 11/05 1507 AC PO Potassium Chloride 20 MEQ BID 10/27 220 AC 11/06 PO 2043 Vital Signs & I&O Last 24 Hrs of Vitals and I&O: Vital Signs Date Time Temp Pulse Resp B/P B/P Pulse O2 O2 Flow FiO2 Mean Ox Delivery Rate 11/07 0800 98.9 83 18 142/98 94 Nasal 1.0L Cannula 11/07 0630 70 98 11/07 0442 81 11/07 0134 71 98 11/07 0000 95 BIPAP 40% 11/06 2358 99.6 64 20 122/78 95 Nasal Cannula 11/07 2047 75 144/60 11/06 2048 75 144/60 11/06 1718 99.0 73 20 148/76 93 Nasal 1.5L Cannula 11/06 1650 Nasal 2.0L Cannula 11/06 1640 80 142/74 11/06 1039 74 130/70 Intake & Output 11/07 1600 11/07 0800 11/07 0000 Intake Total 200 600 Output Total 350 2250 Balance -150 -1650 Intake, Oral 200 600 Output, Urine 350 2250 Patient 374 lb Weight Weight Bed scale Measurement Method Physical Exam General Appearance Alert and oriented, no distress, on nasal cannula HEENT Atraumatic Neck Supple Cardiovascular Regular Rate, No Murmurs, distant heart sounds Lungs Decreased breath sounds, scattered rhonchi and crackles Abdomen Soft, No Tenderness, obese Extremities pitting edema on lower extremities Impression/Plan Impression/Plan Impression/Plan: 1. Acute hypoxemic respiratory failure, secondary to acute HFpEF, on IV Lasix. 2. Underlying heart block, s/p dual chamber pacemaker placement. 3. History of COPD, no evidence of bronchospasm at present. 4. OHS/DAGOBERTO. Chronic hypercarbic respiratory failure, on nocturnal bipap. 5. Chronic venous stasis/lower extremity edema. 6. Minimally elevated troponin. 7. Hypertension. 8. Hyperlipidemia. 9. Constipation. Recommendations: * Continue nocturnal BiPAP. * Continue nebs/TRC. * Diuresis as recommended by cardiology. * Continue medication for blood pressure control. * Monitor off antibiotics. * PT, out of bed to chair daily. * Continue bowel regimen. * DVT prophylaxis at all times. * Discharge planning. * Continue telemetry monitoring.
--- NOTE | 2016-11-07 09:46 | Patient Discharge Instructions ---
Discharge Instructions General Discharge Information You were seen/treated for: MRSA sepsis bradycardia and heart block CHF exacerbation Special Instructions: -You are being transferred to [facility] for removal of the pacemaker and treatment and management of the MRSA bacteremia. -Please follow-up with your heating repair technician 7 days after discharge. -Please follow-up with her superintendent nonselling 7 days after discharge regarding the DAGOBERTO. -Please follow-up with your primary care provider within 7 days after discharge. -We have made changes to your home medications, please read the instructions carefully. -Please come back to the hospital if your symptoms got worse. Diet Recommended Diet: Heart Healthy Activity Activity Self Limited: Yes Acute Coronary Syndrome Inclusion Criteria At DC or during hospital stay patient has or had the following: ACS DIAGNOSIS No Discharge Core Measures Meds if any: Prescribed or Continued at Discharge Meds if any: NOT Prescribed or Continued at Discharge Congestive Heart Failure Inclusion Criteria At DC or during hospital stay patient has or had the following: CHF DIAGNOSIS Yes Discharge Core Measures Meds if any: Prescribed or Continued at Discharge MARGARITO/ARB for EF <40% No (LVEF estimated at 45-50%) Meds if any: NOT Prescribed or Continued at Discharge Cerebrovascular accident Inclusion Criteria At DC or during hospital stay patient has or had the following: CVA/TIA Diagnosis No Discharge Core Measures Meds if any: Prescribed or Continued at Discharge Meds if any: NOT Prescribed or Continued at Discharge Venous thromboembolism Inclusion Criteria VTE Diagnosis No VTE Type NONE VTE Confirmed by (Test) NONE Discharge Core Measures - Per Current guidelines, there needs to be overlap - treatment for the first 5 days of Warfarin therapy. - If discharged on Warfarin prior to 5 days of - overlap therapy, the patient will need to be - assessed for post discharge needs including - *Post discharge parental anticoagulation - *Warfarin and/or parental anticoagulation education - *Follow up date to check INR post discharge At least 5 days overlap therapy as Inpatient No Meds if any: Prescribed or Continued at Discharge Note: Overlap Therapy is Warfarin and Anticoagulant Meds if any: NOT Prescribed or Continued at Discharge
--- NOTE | 2016-11-07 10:24 | PN- Cardiology ---
Subjective Subjective: The patient is feeling better. He he is now on the floor. He is receiving some physical therapy. He wants to go home as opposed to rehabilitation. He is still on IV Lasix. His edema has pretty much resolved. Objective Vital Signs and I&Os Vital Signs Date Time Temp Pulse Resp B/P B/P Pulse O2 O2 Flow FiO2 Mean Ox Delivery Rate 11/07 0950 90 150/88 11/07 0950 90 150/88 11/07 0950 90 150/88 11/07 0800 95 Nasal 2.0L Cannula 11/07 0800 98.9 83 18 142/98 94 Nasal 1.0L Cannula 11/07 0630 70 98 11/07 0442 81 11/07 0134 71 98 11/07 0000 95 BIPAP 40% 11/06 2358 99.6 64 20 122/78 95 Nasal Cannula 11/06 2048 75 144/60 11/068 75 144/60 11/06 1718 99.0 73 20 148/76 93 Nasal 1.5L Cannula 11/06 1650 Nasal 2.0L Cannula 11/06 1640 80 142/74 11/06 1039 74 130/70 Intake & Output 11/07 1600 11/07 0800 11/07 0000 11/06 1600 11/06 0800 11/06 0000 Intake Total 200 600 826 192 5753 Output Total 350 2250 1050 1050 1100 Balance -150 -1650 -250 -330 100 Intake, Oral 200 600 043 075 8535 Number 2 1 2 Bowel Movements Output, Urine 350 2250 1050 1050 1100 Patient 374 lb 345 lb Weight Weight Bed scale Bed scale Measurement Method Physical Exam: He is in no distress HEENT exam grossly normal Chest decreased breath sounds Heart soft heart sounds no murmur. Pacemaker site still looks good. Steri- Strips are intact. Extremities resolving edema Current Medications: Current Medications Sig/Ji Start time Last Medication Dose Route Stop Time Status Admin Acetaminophen 650 MG Q8P PRN 10/27 1500 AC 11/04 PO 1659 Albuterol Sulfate 3 ML Q4P PRN 10/27 1945 AC INH Aspirin Buffered 81 MG DAILY 10/28 1000 AC 11/07 PO 0949 Atorvastatin Calcium 20 MG 1700 10/27 1700 AC 11/06 PO 1640 Collagenase 1 SAM DAILY 11/03 1000 AC 11/06 TOP 0900 Docusate Sodium 100 MG BID 11/02 1000 AC 11/07 PO 0950 Furosemide 40 MG 7:30 AM, & 4:30 PM 10/27 1900 AC 11/07 IV 0829 Glycerin/Mineral Oil 1 SAM TID PRN 11/03 0800 AC 11/04 TOP 1658 Hydralazine HCl 25 MG TID 10/27 1600 AC 11/07 PO 0950 Levetiracetam 1,000 MG BID 11/02 1144 AC 11/07 PO 0950 Lisinopril 40 MG DAILY 10/27 1600 AC 11/07 PO 0950 Metoprolol Tartrate 25 MG BID 11/01 220 AC 11/07 PO 0950 Nitroglycerin 0.4 MG 11/03 AC 11/06 TOP 204 Polyethylene Glycol 17 GM DAILY 11/05 1507 AC 11/07 PO 0951 Potassium Chloride 20 MEQ BID 10/27 2199 AC 11/07 PO 0950 Results Last 48 Hrs of Labs/Mics: Laboratory Tests 11/07/16 0834: Anion Gap 9, Estimated GFR > 60, BUN/Creatinine Ratio 25.0, Magnesium 2.2 11/06/16 0420: Anion Gap 9, Estimated GFR > 60, Glucose 107 H, Calcium 8.6, Phosphorus 4.2, Magnesium 2.3, Total Bilirubin 1.1, AST 30, ALT 43, Albumin 3.4 L, CBC w Diff NO MAN DIFF REQ, RBC 4.86, MCV 94.3 H, MCH 30.3, RDW 17.4 H, MPV 9.7, Gran % 70.6, Lymphocytes % 15.0 L, Monocytes % 10.4 H, Eosinophils % 3.6, Basophils % 0.4, Absolute Granulocytes 7.0 H, Absolute Lymphocytes 1.5, Absolute Monocytes 1.0 H, Absolute Eosinophils 0.4, Absolute Basophils 0, PUBS MCHC 32.2 L Assessment/Plan Assessment/Plan The patient is doing well. His pacemaker is functioning well and the wound looks good. He is diuresing and his pulmonary status is improving. We can change him to oral Lasix at this time. I suggest 80 mg by mouth daily in a.m. From a cardiac standpoint he can be discharged, depending on pulmonary input. Continue telemetry? Yes
[2016-11-07] MEDS ORDERED: LASIX80 M1 PO (12:52)
[2016-11-07] MEDS ORDERED: METOPROLOL TART25 M1 PO (13:18)
--- NOTE | 2016-11-07 16:23 | PN- Att Addend ---
Attending MD Review Statement Attending Statement Attending MD Statement: examined this patient, discuss w/resident/PA/SHEAR SETTER, agreed w/resident/PA/SHEAR SETTER, reviewed EMR data (avail), discussed w/nursing, discussed w/ case mgmt Attending Assessment/Plan: Laboratory Tests 11/07/16 0834: Anion Gap 9, Estimated GFR > 60, BUN/Creatinine Ratio 25.0, Magnesium 2.2 Vital Signs Date Time Temp Pulse Resp B/P B/P Pulse O2 O2 Flow FiO2 Mean Ox Delivery Rate 11/07 0950 90 150/88 11/07 0950 90 150/88 11/07 0950 90 150/88 11/07 0800 95 Nasal 2.0L Cannula 11/07 0800 98.9 83 18 142/98 94 Nasal 1.0L Cannula 11/07 0630 70 98 11/07 0442 81 11/07 0134 71 98 11/07 0000 95 BIPAP 40% 11/06 2358 99.6 64 20 122/78 95 Nasal Cannula 11/06 2048 75 144/60 11/06 2048 75 144/60 11/06 1718 99.0 73 20 148/76 93 Nasal 1.5L Cannula 11/06 1650 Nasal 2.0L Cannula 11/06 1640 80 142/74 Patient seen and examined at bedside. Patient was transferred out of ICU. He was treated for heart block and had a permanent pacemaker placed on November 01, 2016. Patient also had hypoxic as well as hypercapnic respiratory failure at admission which is resolved now. Patient needs nocturnal BiPAP daily and the case management is working on arranging the BiPAP at home. Patient also is on 1 -2 L of oxygen by nasal cannula. We will try to arrange for his BiPAP as well as the oxygen before discharging him home. Possible discharge tomorrow. We have switched his Lasix to by mouth. Discussed with patient the care plan as well as discharge plan in detail.
[2016-11-07 16:38] VITALS: BP 130/70
[2016-11-07 22:16] VITALS: BP 154/82
--- NOTE | 2016-11-08 07:16 | PN- Housestaff ---
See Addendum Subjective Follow-up For: Acute hypoxemic and hypercapnic respiratory failure Tele-Events Since Last Visit: Single pacing HR 69-74 No events Subjective: Patient spiked fevers to 101.7 last night. Blood, urine and sputum cultures were sent. Patient was seen and examined this morning. He continues to spike fevers, Tmax was 102.9 for the past 24 hours. Patient reports increased cough productive of clear sputum but has no new compaints. He endorses tenderness at the pacemaker site which has been present for a few days and is unchanged from before. Review of Systems Constitutional: Reports: see HPI. Objective Last 24 Hrs of Vital Signs/I&O Vital Signs Date Time Temp Pulse Resp B/P B/P Pulse O2 O2 Flow FiO2 Mean Ox Delivery Rate 11/08 1101 101.5 11/08 0940 154/82 11/08 0940 154/82 11/08 0940 154/82 11/08 0939 102.9 11/08 0848 102.9 96 20 98 11/08 0826 97 99 11/08 0800 94 Nasal 1.0L Cannula 11/08 0225 67 98 11/08 0000 BIPAP 11/07 2220 88 98 11/07 2216 100.9 100 20 154/82 91 Nasal 1.0L Cannula 11/07 2107 103 154/82 11/07 2107 103 154/82 11/07 2023 101.1 11/07 2023 101.1 11/07 1831 101.7 11/07 1805 101.7 11/07 1710 98.7 11/07 1710 61 130/70 11/07 1638 99.1 98 20 130/70 97 Nasal 1.0L Cannula 11/07 1600 97 Nasal 1.0L Cannula Intake & Output 11/08 1600 11/08 0800 11/08 0000 Intake Total 100 720 Output Total 600 975 Balance -500 -255 Intake, Oral 100 720 Number 0 Bowel Movements Output, Urine 600 975 Patient 169.644 kg Weight Weight Bed scale Measurement Method Physical Exam General Appearance: Alert, Oriented X3, No Acute Distress HEENT: Atraumatic, Mucous Membr. moist/pink Neck: Supple Cardiovascular: Regular Rate, Normal S1, Normal S2, Pacemaker Site in Right Upper Chest, Clean and Dry with No Erythema, but Tender to Palpation Lungs: Diminished Breath Sounds, Rhonchi Scattered Throughout Bilateral Lung Gutierrez Abdomen: Soft, No Tenderness, Positive Bowel Sounds Extremities: No Clubbing, No Cyanosis, Trace Pitting Edema and Skin Changes Consistent with Chronic Venous Stasis on Bilateral Lower Extremities Current Medications: Current Medications Sig/Ji Start time Last Medication Dose Route Stop Time Status Admin Acetaminophen 325 MG ONCE ONE 11/08 0930 CAN PO 11/08 0931 Acetaminophen 650 MG .STK-MED ONE 11/07 1820 DC PO 11/07 1821 Acetaminophen 650 MG .STK-MED ONE 11/07 1243 DC PO 11/07 1244 Acetaminophen 650 MG Q8P PRN 10/27 1500 AC 11/08 PO 0939 Albuterol Sulfate 3 ML Q4P PRN 10/27 1945 AC INH Aspirin Buffered 81 MG DAILY 10/28 1000 AC 11/08 PO 0940 Atorvastatin Calcium 20 MG 1700 10/27 1700 AC 11/07 PO 1710 Collagenase 1 SAM DAILY 11/03 1000 AC 11/08 TOP 0940 Docusate Sodium 100 MG BID 11/02 1000 AC 11/08 PO 0940 Furosemide 80 MG DAILY 11/08 1000 AC 11/08 PO 0940 Furosemide 40 MG 7:30 AM, & 4:30 PM 10/27 1900 KS 11/07 IV 0829 Glycerin/Mineral Oil 1 SAM TID PRN 11/03 0800 AC 11/04 TOP 1658 Guaifenesin 600 MG Q12 11/08 1140 AC PO Hydralazine HCl 25 MG TID 10/27 1600 AC 11/08 PO 0940 Levetiracetam 1,000 MG BID 11/02 1144 AC 11/08 PO 0939 Lisinopril 40 MG DAILY 10/27 1600 AC 11/08 PO 0940 Metoprolol Tartrate 25 MG BID 11/01 2200 AC 11/08 PO 0940 Nitroglycerin 0.4 MG 11/03 2200 11/07 TOP 2107 Patient Medication 1 ED .STK-MED ONE 11/07 1352 DC Teaching ED 11/07 1353 Polyethylene Glycol 17 GM DAILY 11/05 1507 AC 11/08 PO 0940 Potassium Chloride 20 MEQ BID 10/27 2200 AC 11/08 PO 0939 Vancomycin HCl 2,000 MG Q12 11/08 1144 AC Sodium Chloride 500 ML IV Last 24 Hrs of Lab/Heriberto Results Last 24 Hrs of Labs/Mics: Laboratory Tests 11/08 1055 Chemistry Sodium (137 - 145 mmol/L) 136 L Potassium (3.5 - 5.1 mmol/L) 4.4 Chloride (98 - 107 mmol/L) 98 Carbon Dioxide (22 - 30 mmol/L) 27 Anion Gap (5 - 16) 11 BUN (9 - 20 mg/dL) 23 H Creatinine (0.7 - 1.2 mg/dL) 1.0 Estimated GFR (>60 ml/min) > 60 BUN/Creatinine Ratio (7 - 25 %) 23.0 Hematology CBC w Diff MAN DIFF ORDERED WBC (4.8 - 10.8 /CUMM) 18.8 H RBC (4.70 - 6.10 /CUMM) 4.68 L Hgb (14.0 - 18.0 G/DL) 14.1 Hct (42 - 52 %) 43.5 MCV (80.0 - 94.0 FL) 93.0 MCH (27.0 - 31.0 PG) 30.2 RDW (11.5 - 14.5 %) 16.8 H Plt Count (130 - 400 /CUMM) 159 MPV (7.4 - 10.4 FL) 9.6 Gran % (42.2 - 75.2 %) 85.7 H Lymphocytes % (20.5 - 51.1 %) 3.4 L Monocytes % (1.7 - 9.3 %) 10.6 H Eosinophils % (0 - 5 %) 0.3 Basophils % (0.0 - 2.0 %) 0 L Absolute Granulocytes (1.4 - 6.5 /CUMM) 16.1 H Absolute Lymphocytes (1.2 - 3.4 /CUMM) 0.6 L Absolute Monocytes (0.10 - 0.60 /CUMM) 2.0 H Absolute Eosinophils (0.0 - 0.7 /CUMM) 0 Absolute Basophils (0.0 - 0.2 /CUMM) 0 Platelet Estimate (ADEQUATE) VERIFIED BY SMEAR Basophilic Stippling SLIGHT Anisocytosis 1+ PUBS MCHC (33.0 - 37.0 G/DL) 32.5 L 11/08 1943 Urines Urine Color (YEL,AMB,STR) YEL Urine Clarity (CLEAR) CLEAR Urine pH (5.0 - 8.0) 8.0 Ur Specific [place] (1.001 - 1.035) 1.010 Urine Protein (NEG,<30 MG/DL) NEG Urine Ketones (NEG) NEG Urine Nitrite (NEG) NEG Urine Bilirubin (NEG) NEG Urine Urobilinogen (0.1 - 1.0 EU/dl) 1.0 Ur Leukocyte Esterase (NEG) NEG Ur Microscopic EXAM NOT REQUIRED Urine Hemoglobin (NEG) NEG Urine Glucose (N MG/DL) NEG BCx (11/08/16) x2: Gram positive cocci in clusters Orders Radiology Findings: 1. Technically limited study, grossly clear lung gutierrez. 2. No gross evidence of pleural effusion. Assessment/Plan Assessment: 66 y/o morbidly obese M with PMHx of diastolic CHF, COPD, obesity hypoventilation syndrome and DAGOBERTO who is admitted for acute on chronic hypoxemic and hypercapnic respiratory failure, s/p pacemaker placement for bradycardia with heart block. #Presumed Staph aureus sepsis: Patient meets SIRS criteria for sepsis with new onset fevers (Tmax 102.9) since last night, leukocytosis (WBC 18.8) and tachycardia today. Blood cultures growing gram positive cocci in clusters, presumed to be Staph aureus and most likely MRSA per ID given history of MRSA colonization and recent treatment with antibiotics. Etiology is unclear but potential sources include recently placed pacemaker with mild tenderness at the site, although there is no erythema and incision is clean, bilateral chronic venous stasis ulcers although there is no evidence of cellulitis, right buttock ulcer or pneumonia with increased cough however CXR is negative and respiratory status is stable with patient remaining on 1 L NC. Persistent RUE edema is concerning for DVT/thrombophlebitis although Doppler US was negative for DVT one week ago. * ID following. Appreciate their recs. * Start vancomycin 2 g IV Q12H. * Follow BCx, UCx and sputum Cx. * Await general surgery input on right buttock ulcer and possible need for debridement. * ECHO ordered to evalute for endocarditis. Check MITCEHLL if ECHO is negative. * Check CT Chest with IV Contrast to evaluate for signs of infection at pacemaker site. * Repeat BCx in the AM. * Check CT lumbosacral spine as patient is unlikely to fit inside MRI. * Repeat Doppler US of RUE. * Tylenol 650 mg PO Q6H PRN for fever. #Acute on chronic hypoxemic and hypercapnic respiratory failure: [place] to be secondary to acute on chronic HFpEF. Resolved with aggressive IV diuresis. Currently requiring 1 L of NC. * Start Lasix 80 mg PO daily. * Continue PT and out of bed to chair daily. * Continue TRC/nebs. * Continue nocturnal BiPAP. * Provide supplemental oxygen as needed to keep SpO2 > 92%. Diet: Heart Healthy DVT PPx: ALPs CODE: FULL Problem List: 1. Acute on chronic respiratory failure with hypoxia and hypercapnia 2. Status post placement of cardiac pacemaker 3. Acute exacerbation of CHF (congestive heart failure) 4. Gram positive sepsis 5. Diastolic heart failure 6. (HFpEF) heart failure with preserved ejection fraction Pain Ratin Pain Location: N/A Pain Goal: Remain pain free Pain Plan: Tylenol 650 mg PO Q6H Tomorrow's Labs & Rationales: CBC to monitor WBC in the setting of infection BMP to monitor lytes and kidney function in the setting of diuresis and vancomycin therapy
[2016-11-08 11:48] LABS: ABSOLUTE BASOPHIL COUNT 0 /CUMM (0.0-0.2); ABSOLUTE EOSINOPHIL COUNT 0 /CUMM (0.0-0.7); ABSOLUTE GRANULOCYTE CT 16.1 /CUMM (1.4-6.5); ABSOLUTE LYMPH COUNT 0.6 /CUMM (1.2-3.4); BASOPHIL % 0 % (0.0-2.0); EOSINOPHIL % 0.3 % (0-5); GRANULOCYTE % 85.7 % (42.2-75.2); HEMATOCRIT 43.5 % (42-52); MEAN CORPUSCULAR HGB 30.2 PG (27.0-31.0); MEAN CORPUSCULAR HGB CONC 32.5 G/DL (33.0-37.0); MEAN PLATELET VOLUME 9.6 FL (7.4-10.4); PLATELET COUNT 159 /CUMM (130-400); RBC DISTRIBUTION WIDTH 16.8 % (11.5-14.5); RED BLOOD CELL CT 4.68 /CUMM (4.70-6.10)
[2016-11-08 12:06] LABS: WHITE BLOOD CELL COUNT 18.8 /CUMM (4.8-10.8)
--- NOTE | 2016-11-08 13:06 | RADIOLOGY REPORT ---
EXAMINATION: XR PORTABLE CHEST CLINICAL INFORMATION: New onset fever. COMPARISON: Chest done on 11/02/2016. TECHNIQUE: Portable frontal upright 80 degrees view of the chest was obtained. FINDINGS: Evaluation is slightly technically limited due to presence of motion blur. Grossly, both lung gutierrez appear symmetrically expanded and grossly appear clear. The cardiac mediastinal silhouette remain moderately enlarged. There is no definite evidence of any pleural effusion identified on the current study. Dual-lead pacer wires are visualized, not optimally localized on this limited image. IMPRESSION: 1. Technically limited study, grossly clear lung gutierrez. 2. No gross evidence of pleural effusion.
--- NOTE | 2016-11-08 13:42 | PN- Cardiology ---
Subjective Subjective: The patient is febrile and having a cough and elevated white count. He is tachycardic. I was asked to check his pacemaker wound. His chest x-ray was negative but is a limited study due to his size. Objective Vital Signs and I&Os Vital Signs Date Time Temp Pulse Resp B/P B/P Pulse O2 O2 Flow FiO2 Mean Ox Delivery Rate 11/08 1242 102.6 11/08 1101 101.5 11/08 0940 154/82 11/08 0940 154/82 11/08 0940 154/82 11/08 0939 102.9 11/08 0848 102.9 96 20 98 11/08 08 97 99 11/08 0800 94 Nasal 1.0L Cannula 11/08 0225 67 98 11/08 0000 BIPAP 11/07 2220 88 98 11/07 2216 100.9 100 20 154/82 91 Nasal 1.0L Cannula 11/07 210 103 154/82 11/07 2107 103 154/82 11/07 202 101.1 11/07 2023 101.1 11/07 1831 101.7 11/07 1805 101.7 11/07 1710 98.7 11/07 1710 61 130/70 11/07 1638 99.1 98 20 130/70 97 Nasal 1.0L Cannula 11/07 1600 97 Nasal 1.0L Cannula Intake & Output 11/08 1600 11/08 0800 11/08 0000 11/07 1600 11/07 0800 11/07 0000 Intake Total 100 720 640 200 600 Output Total 964 360 5152 350 2250 Balance -500 -255 -810 -150 -1650 Intake, Oral 100 720 640 200 600 Number 0 1 Bowel Movements Output, Urine 866 741 0862 350 2250 Patient 374 lb 374 lb Weight Weight Bed scale Bed scale Measurement Method Physical Exam: He looks uncomfortable due to fever HEENT exam is normal Chest reveals rhonchi PACEMAKER SITE IS CLEAN AND DRY, NO EVIDENCE OF INFECTION. STERI-STRIPS REMOVED. Current Medications: Current Medications Sig/Ji Start time Last Medication Dose Route Stop Time Status Admin Acetaminophen 325 MG ONCE ONE 11/08 0930 CAN PO 11/08 0931 Acetaminophen 650 MG .STK-MED ONE 11/07 1820 DC PO 11/07 182 Acetaminophen 650 MG Q8P PRN 10/27 1500 AC 11/08 PO 0939 Albuterol Sulfate 3 ML Q4P PRN 10/27 1945 AC INH Aspirin Buffered 81 MG DAILY 10/28 1000 AC 11/08 PO 0940 Atorvastatin Calcium 20 MG 1700 10/27 1700 AC 11/07 PO 1710 Collagenase 1 SAM DAILY 11/03 1000 AC 11/08 TOP 0940 Docusate Sodium 100 MG BID 11/02 1000 AC 11/08 PO 0940 Furosemide 80 MG DAILY 11/08 1000 AC 11/08 PO 0940 Glycerin/Mineral Oil 1 SAM TID PRN 11/03 0800 AC 11/04 TOP 1658 Guaifenesin 600 MG Q12 11/08 1140 AC 11/08 PO 1236 Hydralazine HCl 25 MG TID 10/27 1600 AC 11/08 PO 0940 Levetiracetam 1,000 MG BID 11/02 1144 AC 11/08 PO 0939 Lisinopril 40 MG DAILY 10/27 1600 AC 11/08 PO 0940 Metoprolol Tartrate 25 MG BID 11/01 2200 AC 11/08 PO 0940 Nitroglycerin 0.4 MG 11/03 2200 AC 11/07 TOP 2107 Patient Medication 1 ED .STK-MED ONE 11/07 1352 DC Teaching ED 11/07 1353 Polyethylene Glycol 17 GM DAILY 11/05 1507 AC 11/08 PO 0940 Potassium Chloride 20 MEQ BID 10/27 2200 AC 11/08 PO 0939 Vancomycin HCl 2,000 MG Q12 11/08 1144 AC 11/08 Sodium Chloride 500 ML IV 1236 Results Last 48 Hrs of Labs/Mics: Laboratory Tests 11/08/16 1055: Anion Gap 11, Estimated GFR > 60, BUN/Creatinine Ratio 23.0, CBC w Diff MAN DIFF ORDERED, RBC 4.68 L, MCV 93.0, MCH 30.2, RDW 16.8 H, MPV 9.6, Gran % 85.7 H, Lymphocytes % 3.4 L, Monocytes % 10.6 H, Eosinophils % 0.3, Basophils % 0 L, Absolute Granulocytes 16.1 H, Absolute Lymphocytes 0.6 L, Absolute Monocytes 2.0 H, Absolute Eosinophils 0, Absolute Basophils 0, Platelet Estimate VERIFIED BY SMEAR, Basophilic Stippling SLIGHT, Anisocytosis 1+, PUBS MCHC 32.5 L 11/07/161943: Urine Color YEL, Urine Clarity CLEAR, Urine pH 8.0, Ur Specific [place] 1.010, Urine Protein NEG, Urine Ketones NEG, Urine Nitrite NEG, Urine Bilirubin NEG, Urine Urobilinogen 1.0, Ur Leukocyte Esterase NEG, Ur Microscopic EXAM NOT REQUIRED, Urine Hemoglobin NEG, Urine Glucose NEG 11/07/16 0834: Anion Gap 9, Estimated GFR > 60, BUN/Creatinine Ratio 25.0, Magnesium 2.2 Recent Imaging Studies: PATIENT: LISA BRIAN PRESENT AGE: 66 PATIENT ACCOUNT NO: [id number] : 51 LOCATION: [facility] ORDERING PHYSICIAN: MARTHA CARVER MD SERVICE DATE: 11/08/16 EXAM TYPE: RAD - XRY-PORTABLE CHEST XRAY EXAMINATION: XR PORTABLE CHEST CLINICAL INFORMATION: New onset fever. COMPARISON: Chest done on 11/02/2016. TECHNIQUE: Portable frontal upright 80 degrees view of the chest was obtained. FINDINGS: Evaluation is slightly technically limited due to presence of motion blur. Grossly, both lung gutierrez appear symmetrically expanded and grossly appear clear. The cardiac mediastinal silhouette remain moderately enlarged. There is no definite evidence of any pleural effusion identified on the current study. Dual-lead pacer wires are visualized, not optimally localized on this limited image. IMPRESSION: 1. Technically limited study, grossly clear lung gutierrez. 2. No gross evidence of pleural effusion. DICTATED BY: SUKH MENDOZA MD DATE/TIME DICTATED:11/08/161243 CANDY SEPARATOR HARD:ELIA DATE/TIME TRANSCRIBED:11/08/161243 CONFIDENTIAL, DO NOT COPY WITHOUT APPROPRIATE AUTHORIZATION. <Electronically signed in Other Vendor System> SIGNED BY: SUKH MENDOZA MD 11/08/16 1306 Assessment/Plan Assessment/Plan The patient is doing well. His pacemaker is functioning well and the wound looks good. He is likely having a respiratory infection. I suggest full cultures and empiric antibiotics and possibly ID consultation. There is no evidence of pacemaker wound infection. Continue telemetry? Yes
[2016-11-08 16:00] VITALS: BP 140/80
--- NOTE | 2016-11-08 16:26 | Cons- Infect Disease ---
General Information and HPI Consulting Request Date of Consult: 11/08/16 Requested By: SADIE HENDRICKSON,PAUL Arechiga Reason for Consult: Positive blood cultures for gram-positive cocci in clusters Source of Information: patient, old records Exam Limitations: clinical condition History of Present Illness: This is a 66-year-old man with a history of morbid obesity, hypertension, HFpEF, COPD, obstructive sleep apnea, hospitalized 4 months prior to admission with CHF , with his hospital course complicated by a cardiac arrest, seizures, bradycardia with heart block, for which a pacemaker was recommended, pneumonia, with sputum culture positive for strep pneumoniae, treated with a ten-day course of antibiotics, and thrombocytopenia, with HIT workup negative, discharged after 2 weeks to a short-term rehabilitation facility, admitted on October 27 after presenting to the emergency room with shortness of breath on exertion and hypoxia. On admission he was afebrile, with heart rate in the 40s and an O2 sat of 66% on room air. Laboratory data revealed a white blood cell count of 10,000 , platelets 141,000, BUN/creatinine 32 and .9, bilirubin 1.5, troponin 0.12, proBNP 2860, INR 1.33 ABG 7.26/68/86 on 50% oxygen. Chest x-ray revealed hazy opacities at the bases. CT of the chest revealed cardiomegaly with pulmonary vascular engorgement, interstitial edema and bilateral pleural effusions with compressive atelectasis of both lower lobes. He was initially given Vancomycin and Ceftazidime, which were discontinued the next day. He was initially admitted to the ICU and treated for CHF, with improvement in his respiratory status. On November 01 he underwent placement of a pacemaker with Cefazolin prophylaxis. He has been stable, with temperatures and white blood cell count normal, until November 07 when he spiked a fever to 101.7. Blood cultures 2 were obtained and were reported positive today for gram-positive cocci in clusters. He was begun on Vancomycin. At present he reports severe back pain, which apparently has been a chronic problem, but denies any other complaints, though his history is somewhat limited secondary to his discomfort. Allergies/Medications Allergies: Coded Allergies: NO KNOWN ALLERGIES (06/26/16) Home Med List: Aspirin (Ecotrin*) 81 MG TABLET.DR 1 TAB PO DAILY HEART HEALTH (Reported) Furosemide 40 MG TABLET 1 TAB PO BID DIURETIC (Reported) Furosemide (Lasix) 80 MG TABLET 1 TAB PO DAILY FLUID RETENTION Hydralazine HCl 25 MG TABLET 1 TAB PO TID Elevated BP Levetiracetam (Keppra) 1,000 MG TABLET 1 TAB PO BID Seizure Prophylaxis Please take this medication for seizure prophylaxis. You will need to follow up with the neurlogist regarding fpc use of this medication. Lisinopril 40 MG TABLET 1 TAB PO DAILY HEART (Reported) Metoprolol Tartrate 25 MG TABLET 1 TAB PO BID HEART HEALTH Nitroglycerin (Nitroglycerin Patch) 1 EACH PATCH.TD24 0.4 MG TOP DAILY HEART (Reported) Potassium Chloride 20 MEQ TAB.ER.PRT 1 TAB PO BID SUPPLEMENT (Reported) Simvastatin (Simvastatin*) 20 MG TABLET 1 TAB PO QPM CHOLESTEROL (Reported) Past History Travel History Traveled to [place] past 21 day No Medical History Neurological: NONE EENT: NONE Cardiovascular: CHF, chronic venous insuff, hypertension, hyperlipidemia, second degree heart block and sinus bradycardia Respiratory: obstructive sleep apnea, RESPIRATORY FAILURE Gastrointestinal: OBESITY Hepatic: NONE Renal: NONE Musculoskeletal: chronic back pain, ARTHRITIS Psychiatric: NONE Endocrine: NONE Blood Disorders: NONE Cancer(s): 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 Needs Assist: bathing. Ambulation: walker IADLs Independent: food prep. Needs Assist: shopping, housework, finances, telephone, transportation, medication admin. ECHO Results (as available) EF% 50 Review of Systems Review of Systems Cardiovascular: Denies: chest pain. Respiratory: Reports: cough. Denies: short of breath. GI: Denies: abdominal pain, diarrhea. Genitourinary: Reports: no symptoms. Musculoskeletal: Reports: back pain. Skin: Reports: lesions. All Other Systems: Reviewed and Negative Exam & Diagnostic Data Last 24 Hrs of Vital Signs/I&O Vital Signs Date Time Temp Pulse Resp B/P B/P Pulse O2 O2 Flow FiO2 Mean Ox Delivery Rate 11/08 1610 142/70 11/08 1609 102.7 11/08 1600 102.7 113 20 140/80 90 11/08 1242 102.6 11/08 1101 101.5 11/08 0940 154/82 11/08 0940 154/82 11/08 0940 154/82 11/08 0939 102.9 11/08 0848 102.9 96 20 98 11/08 08 97 99 11/08 0800 94 Nasal 1.0L Cannula 11/08 0225 67 98 11/08 0000 BIPAP 11/07 2220 88 98 11/07 2216 100.9 100 20 154/82 91 Nasal 1.0L Cannula 11/07 210 103 154/82 11/07 2107 103 154/82 11/07 2022 101.1 11/07 2022 101.1 11/07 1831 101.7 11/07 1805 101.7 11/07 1710 98.7 11/07 1710 61 130/70 11/07 1638 99.1 98 20 130/70 97 Nasal 1.0L Cannula Intake & Output 11/08 1600 11/08 0800 11/08 0000 Intake Total 100 720 Output Total 500 600 975 Balance -500 -500 -255 Intake, Oral 100 720 Number 0 Bowel Movements Output, Urine 500 600 975 Patient 374 lb Weight Weight Bed scale Measurement Method Physical Exam Other Physical Findings: He is lethargic but arousable in moderate distress secondary to back pain. MAXIMUM TEMPERATURE 102.9. Skin flushed face. HEENT exam poor dentition. Neck is supple with no adenopathy. Chest pacemaker site in the right upper chest with no erythema, incision clean, but tender to palpation. Lungs scattered rhonchi. Heart regular rhythm with a 2/6 systolic ejection murmur. Abdomen is obese, soft, nontender with positive bowel sounds. Back right gluteal decubitus with some necrosis, with no surrounding erythema or drainage; no CVA tenderness. Extremities marked right upper extremity edema, with no erythema, tender to palpation; chronic venous stasis changes both lower extremities, with ulcers on the medial aspect of the left leg with no surrounding erythema or tenderness. Neuro is without focality. Last 24 Hours of Lab Results: Laboratory Tests 11/08 1055 Chemistry Sodium (137 - 145 mmol/L) 136 L Potassium (3.5 - 5.1 mmol/L) 4.4 Chloride (98 - 107 mmol/L) 98 Carbon Dioxide (22 - 30 mmol/L) 27 Anion Gap (5 - 16) 11 BUN (9 - 20 mg/dL) 23 H Creatinine (0.7 - 1.2 mg/dL) 1.0 Estimated GFR (>60 ml/min) > 60 BUN/Creatinine Ratio (7 - 25 %) 23.0 Hematology CBC w Diff MAN DIFF ORDERED WBC (4.8 - 10.8 /CUMM) 18.8 H RBC (4.70 - 6.10 /CUMM) 4.68 L Hgb (14.0 - 18.0 G/DL) 14.1 Hct (42 - 52 %) 43.5 MCV (80.0 - 94.0 FL) 93.0 MCH (27.0 - 31.0 PG) 30.2 RDW (11.5 - 14.5 %) 16.8 H Plt Count (130 - 400 /CUMM) 159 MPV (7.4 - 10.4 FL) 9.6 Gran % (42.2 - 75.2 %) 85.7 H Lymphocytes % (20.5 - 51.1 %) 3.4 L Monocytes % (1.7 - 9.3 %) 10.6 H Eosinophils % (0 - 5 %) 0.3 Basophils % (0.0 - 2.0 %) 0 L Absolute Granulocytes (1.4 - 6.5 /CUMM) 16.1 H Absolute Lymphocytes (1.2 - 3.4 /CUMM) 0.6 L Absolute Monocytes (0.10 - 0.60 /CUMM) 2.0 H Absolute Eosinophils (0.0 - 0.7 /CUMM) 0 Absolute Basophils (0.0 - 0.2 /CUMM) 0 Platelet Estimate (ADEQUATE) VERIFIED BY SMEAR Basophilic Stippling SLIGHT Anisocytosis 1+ PUBS MCHC (33.0 - 37.0 G/DL) 32.5 L 11/08 1943 Urines Urine Color (YEL,AMB,STR) YEL Urine Clarity (CLEAR) CLEAR Urine pH (5.0 - 8.0) 8.0 Ur Specific [place] (1.001 - 1.035) 1.010 Urine Protein (NEG,<30 MG/DL) NEG Urine Ketones (NEG) NEG Urine Nitrite (NEG) NEG Urine Bilirubin (NEG) NEG Urine Urobilinogen (0.1 - 1.0 EU/dl) 1.0 Ur Leukocyte Esterase (NEG) NEG Ur Microscopic EXAM NOT REQUIRED Urine Hemoglobin (NEG) NEG Urine Glucose (N MG/DL) NEG Last 24 Hours of Heriberto Results: Blood cultures November 07 positive for gram-positive cocci in clusters Urine culture November 05 negative Blood cultures October 27 negative Urine culture October 27 negative Diagnostic Data Recent Imaging Findings: Chest x-ray November 08, personally reviewed, negative Doppler of the right upper extremity November [address] of the chest October 27 reveals cardiomegaly, pulmonary vascular engorgement, interstitial edema and bilateral pleural effusions; compressive atelectasis of both lower lobes Assessment/Plan Assessment/Plan Impression: This is a 66-year-old man with hypertension, HFpEF, COPD, with obstructive sleep apnea, hospitalized 4 months prior to admission with CHF, complicated by cardiac arrest, with sinus bradycardia and second degree heart block, pneumonia, seizures and thrombocytopenia, admitted on October 27 with hypoxia, felt to be secondary to CHF, with a pacemaker placed 5 days after admission, now with the acute onset of fevers and leukocytosis with blood cultures 2 positive for gram- positive cocci in clusters. I suspect that this will prove to be Staph aureus, most likely MRSA, given his history and recent treatment with antibiotics. The most likely source of his sepsis is the pacemaker, with mild tenderness at the site, though there is no erythema and the incision is clean. Other possible sources of sepsis include the left leg ulcers, though there is no evidence for cellulitis, the lungs, though his chest x-ray appears negative, and the right gluteal decubitus, though there is no surrounding inflammation. His severe back pain raises concern for seeding of the spine, though this would be a secondary process and not the initial focus. His right upper extremity edema raises concern for a DVT/thrombophlebitis and, though his Doppler was negative one week ago, this should be repeated. He will also need evaluation for endocarditis. Suggestion: 1. CT of the chest with IV contrast 2. Repeat Doppler of the right upper extremity 3. Will need CT of the lumbosacral spine (unlikely to fit in MRI, though his pacemaker is MRI compatible) 4. Repeat blood cultures x 2 in the AM 5. Echocardiogram, followed by MITCHELL if negative 6. Continue Vancomycin 2 g IV every 12 hours pending blood culture results Catalina Lerma MD will be covering me until November 14 Consult Acknowledgment - Thank you for your consult request.
--- NOTE | 2016-11-08 19:43 | ULTRASOUND REPORT ---
EXAMINATION: US TRIPLEX UPPER EXTREMITY UNILATERAL, RIGHT CLINICAL INFORMATION: Weakness and tingling. COMPARISON: None. TECHNIQUE: Color-flow triplex imaging with spectral analysis and compression Doppler were performed on the right upper extremity. Study is limited due to patient body habitus. FINDINGS: Respiratory variation, normal compression and augmented flow are noted throughout the upper extremity. The visualized right internal jugular vein, subclavian vein, axillary vein, basilic vein, brachial vein, and cephalic vein show no evidence of deep venous thrombosis. No soft tissue fluid collection is seen. IMPRESSION: Slightly limited examination due to patient body habitus. Otherwise, normal triplex scan without evidence of deep venous thrombosis involving the right upper extremity.
[2016-11-09 00:24] VITALS: BP 122/78
--- NOTE | 2016-11-09 07:08 | PN- Housestaff ---
Subjective Follow-up For: Presumed MRSA sepsis Acute on chronic hypoxemic and hypercapnic respiratory failure Tele-Events Since Last Visit: Single pacing HR 84-88 No events Subjective: CT Chest with IV Contrast and CT Lumbosacral Spine could not be performed yesterday as patient could not fit into the machine due to body habitus. Patient continued to spike fevers overnight. Tmax was 103.2. He was given 1 g of IV Tylenol, 30 mg of IV Toradol and 1 mg of IV dilaudid for pain. Patient was seen and examined this morning. He appears lethargic but arousable. He reports persistent back pain and tenderness at the pacemaker site. Review of Systems Constitutional: Reports: see HPI. Objective Last 24 Hrs of Vital Signs/I&O Vital Signs Date Time Temp Pulse Resp B/P B/P Pulse O2 O2 Flow FiO2 Mean Ox Delivery Rate 11/09 1750 99.1 11/09 1722 99.1 11/09 1713 97 Nasal 2.0L Cannula 11/09 1702 102.9 97 24 100/62 91 11/09 1623 102.1 11/09 1622 100/58 11/09 1104 99.1 82 20 110/72 92 BIPAP 11/09 0858 102.4 82 20 122/78 11/09 0857 102.4 82 20 122/78 11/09 0857 102.4 82 20 122/78 11/09 0800 Nasal 2.0L Cannula 11/09 0534 102.4 11/09 0343 82 96 11/09 0256 99.3 11/09 0034 90 100 11/09 0024 103.0 86 20 122/78 97 BIPAP 11/09 0015 103.2 11/09 0000 103.2 11/09 0000 BIPAP 30% 11/08 2258 94 95 11/08 2108 126 11/087 103.2 11/08 2056 103.2 Intake & Output 11/09 1600 11/09 0800 11/09 0000 Intake Total 1450 240 750 Output Total 25 Balance 1425 240 750 Intake, IV 650 0 500 Intake, Oral 800 240 250 Number 1 0 Bowel Movements Output, Urine 25 Patient 169.644 kg Weight Weight Bed scale Measurement Method Physical Exam General Appearance: Lethargic but Arousable Skin: Flushed Face HEENT: Atraumatic, Mucous Membr. moist/pink Neck: Supple Cardiovascular: Regular Rate, Normal S1, Normal S2, Pacemaker Site on Right Upper Chest with No Erythema, Incision Clean but Tender to Palpation Lungs: Rhonchi Scattered Throughout Bilateral Lung Wiley Abdomen: Soft, No Tenderness, Positive Bowel Sounds, Obese Extremities: Changes Consistent with Chronic Venous Stasis on Bilateral Lower Extremities, Ulcers on the Medial Aspect of Left Leg without Erythema or Tenderness Current Medications: Current Medications Sig/Ji Start time Last Medication Dose Route Stop Time Status Admin Acetaminophen 1,000 MG ONCE ONE 11/09 0005 DC 11/09 N/A 1 UNIT IV 11/09 0019 0015 Acetaminophen 650 MG Q6 PRN 11/08 1449 AC 11/09 PO 1623 Albuterol Sulfate 3 ML Q4P PRN 10/27 1945 AC INH Aspirin Buffered 81 MG DAILY 10/28 1000 AC 11/09 PO 0857 Atorvastatin Calcium 20 MG 1700 10/27 1700 AC 11/09 PO 1622 Collagenase 1 SAM DAILY 11/03 1000 AC 11/09 TOP 0858 Cyclobenzaprine HCl 5 MG ONCE ONE 11/08 2030 DC 11/09 PO 11/08 2031 0020 Docusate Sodium 100 MG BID 11/02 1000 AC 11/09 PO 0856 Furosemide 80 MG DAILY 11/08 1000 DC 11/08 PO 0940 Glycerin/Mineral Oil 1 SAM TID PRN 11/03 0800 AC 11/04 TOP 1658 Guaifenesin 600 MG Q12 11/08 1140 AC 11/09 PO 0858 Hydralazine HCl 25 MG TID 10/27 1600 AC 11/09 PO 1622 Hydromorphone HCl 1 MG ONCE ONE 11/09 0830 DC 11/09 IV 11/09 0831 0957 Ketorolac 30 MG ONCE ONE 11/09 0545 DC 11/09 Tromethamine IV 11/09 0546 0545 Levetiracetam 1,000 MG BID 11/02 1144 11/09 PO 0857 Lisinopril 40 MG DAILY 10/27 1600 11/09 PO 0858 Metoprolol Tartrate 25 MG BID 11/01 2200 AC 11/09 PO 0857 Naloxone HCl 0.4 MG ONCE PRN 11/08 1615 AC IV Nitroglycerin 0.4 MG 0 11/03 2200 11/08 TOP 2108 Patient Medication 1 ED .STK-MED ONE 11/09 1416 AR Teaching ED 11/09 1417 Polyethylene Glycol 17 GM DAILY 11/05 1507 AC 11/09 PO 0856 Sodium Chloride 1,000 ML Q8H 11/09 1930 AC IV Sodium Chloride 1,000 ML Q10H 11/09 0900 DC 11/09 IV 11/09 1859 0924 Tramadol HCl 50 MG Q8P PRN 11/08 1615 AC PO Vancomycin HCl 2,000 MG Q12 11/08 1144 AC 11/09 Sodium Chloride 500 ML IV 0924 Last 24 Hrs of Lab/Heriberto Results Last 24 Hrs of Labs/Mics: Laboratory Tests 11/09/16 1615: Anion Gap 11, Estimated GFR 44 L, BUN/Creatinine Ratio 27.5 H 11/09/16 0630: Anion Gap 12, Estimated GFR 51 L, BUN/Creatinine Ratio 25.7 H, CBC w Diff NO MAN DIFF REQ, RBC 4.85, MCV 94.0, MCH 30.7, RDW 17.3 H, MPV 10.0, Gran % 87.5 H, Lymphocytes % 2.9 L, Monocytes % 9.5 H, Eosinophils % 0, Basophils % 0.1, Absolute Granulocytes 14.1 H, Absolute Lymphocytes 0.5 L, Absolute Monocytes 1.5 H, Absolute Eosinophils 0, Absolute Basophils 0, PUBS MCHC 32.7 L BCx (11/07/16): MRSA x2 UCx (11/07/16): NGTD Orders ECHO Findings: ECHO: 1. This was a technically difficult and limited examination due to the patient's body habitus. No apical images were obtained. 2. Aortic sclerosis is present. 3. Mitral leaflet thickening is present with left atrial enlargement. 4. A very small pericardial effusion is present. 5. The left ventricular chamber is mildly dilated with localized inferoposterior hypokinesia and an ejection fraction of approximately 45-50 %, Complete evaluation of LV function and wall motion was not possible in the absence of adequate apical images. 6. Mild tricuspid insufficiency is present. The RV systolic pressure was not accurately assessed. 7. Pacemaker wires are present in the right heart chambers 8. The possibility of vegetative lesions was not excluded by this examiniaiton. If clinically indicated, a MITCHELL would better exclude vegetative lesions. Assessment/Plan Assessment: 66 y/o morbidly obese M with PMHx of diastolic CHF, COPD, DAGOBERTO/obesity hypoventilation syndrome who is admitted for acute on chronic hypoxemic and hypercapnic respiratory failure, s/p pacemaker placement for bradycardia with heart block. 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 Blood cultures x2 growing MRSA as previously suspected. The most likely source is the pacemaker with persistent mild tenderness at the site, with severe back pain concerning for secondary seeding of the spine. CT Chest with IV Contrast and CT Lumbosacral Spine could not be performed yesterday due to body habitus. Possibility of vegetative lesions could not be excluded by ECHO performed today which was a technically difficult study due to patient's body habitus. Doppler US of RUE, performed yesterday due to concern for DVT/thrombophlebitis, was negative. * Transfer to [facility] for further evaluation and management of suspected pacemaker infection. * Continue vancomycin 2 g IV Q12H. #CALEB: Cr increased to 1.4 this morning, from 1.0 yesterday. Repeat Cr in the afternoon was 1.6 despite receiving 500 ml of normal saline bolus. Likely multifactorial secondary to sepsis, vancomycin and Toradol that patient received overnight. * Hold lasix and lisinopril. * Avoid nephrotoxic medications. #Acute on chronic hypoxemic and hypercapnic respiratory failure: [place] to be secondary to acute on chronic HFpEF. Resolved with aggressive IV diuresis. Currently requiring 1 L of NC. * Continue TRC/nebs. * Continue nocturnal BiPAP. * Provide supplemental oxygen as needed to keep SpO2 > 92%. * Hold Lasix in the setting of CALEB. Diet: Heart Healthy DVT PPx: ALPs CODE: FULL Problem List: 1. Sepsis due to methicillin resistant Staphylococcus aureus (MRSA) 2. (HFpEF) heart failure with preserved ejection fraction 3. Acute on chronic respiratory failure with hypoxia and hypercapnia 4. Status post placement of cardiac pacemaker 5. CALEB (acute kidney injury) Pain Ratin Pain Location: Back Pain Goal: Remain pain free Pain Plan: Tramadol 50 mg PO Q8H PRN for [id number] pain Tomorrow's Labs & Rationales: None Discharge Plan Discharge Disposition: transfer to another hosp ([facility]) Anticipated Discharge (Day): today
[2016-11-09 08:45] LABS: ABSOLUTE BASOPHIL COUNT 0 /CUMM (0.0-0.2); ABSOLUTE EOSINOPHIL COUNT 0 /CUMM (0.0-0.7); ABSOLUTE GRANULOCYTE CT 14.1 /CUMM (1.4-6.5); ABSOLUTE LYMPH COUNT 0.5 /CUMM (1.2-3.4); ABSOLUTE MONOCYTE COUNT 1.5 /CUMM (0.10-0.60); BASOPHIL % 0.1 % (0.0-2.0); EOSINOPHIL % 0 % (0-5); HEMATOCRIT 45.6 % (42-52); MEAN CORPUSCULAR HGB 30.7 PG (27.0-31.0); MEAN CORPUSCULAR HGB CONC 32.7 G/DL (33.0-37.0); PLATELET COUNT 140 /CUMM (130-400); RBC DISTRIBUTION WIDTH 17.3 % (11.5-14.5); RED BLOOD CELL CT 4.85 /CUMM (4.70-6.10); WHITE BLOOD CELL COUNT 16.1 /CUMM (4.8-10.8)
--- NOTE | 2016-11-09 09:51 | PN- Pulmonary ---
Subjective HPI/Critical Care Issues: Patient was seen and examined today. Patient alert, awake, oriented 3. Patient stated that his breathing status improved, but he still complaining of fever with night sweats. Patient reports back pain that is well controlled with pain medication. Deny any chest pain, wheezing, abdominal pain. Patient was started on IV vancomycin yesterday after he spiked a fever, his blood culture came back growing MRSA. Despite that patient still spiking fever. Objective Current Medications: Current Medications Sig/Ji Start time Last Medication Dose Route Stop Time Status Admin Acetaminophen 1,000 MG ONCE ONE 11/09 0005 DC 11/09 N/A 1 UNIT IV 11/09 0019 0015 Acetaminophen 650 MG Q6 PRN 11/08 1449 AC 11/08 PO 2107 Acetaminophen 650 MG Q8P PRN 10/27 1500 DC 11/08 PO 0939 Albuterol Sulfate 3 ML Q4P PRN 10/27 1945 AC INH Aspirin Buffered 81 MG DAILY 10/28 1000 AC 11/09 PO 0857 Atorvastatin Calcium 20 MG 1700 10/27 1700 AC 11/08 PO 1610 Collagenase 1 SAM DAILY 11/03 1000 AC 11/09 TOP 0858 Cyclobenzaprine HCl 5 MG ONCE ONE 11/08 2030 DC 11/09 PO 11/08 2031 0020 Docusate Sodium 100 MG BID 11/02 1000 AC 11/09 PO 0856 Furosemide 80 MG DAILY 11/08 1000 DC 11/08 PO 0940 Glycerin/Mineral Oil 1 SAM TID PRN 11/03 0800 AC 11/04 TOP 1658 Guaifenesin 600 MG Q12 11/08 1140 AC 11/09 PO 0858 Hydralazine HCl 25 MG TID 10/27 1600 AC 11/09 PO 0857 Hydromorphone HCl 1 MG ONCE ONE 11/09 0830 DC 11/09 IV 11/09 0831 0957 Ketorolac 30 MG ONCE ONE 11/09 0545 DC 11/09 Tromethamine IV 11/09 0546 0545 Levetiracetam 1,000 MG BID 11/02 1144 AC 11/09 PO 0857 Lisinopril 40 MG DAILY 10/27 1600 AC 11/09 PO 0858 Metoprolol Tartrate 25 MG BID 11/01 2200 AC 11/09 PO 0857 Morphine Sulfate 2 MG ONCE ONE 11/08 1615 DC 11/08 IV 11/08 1616 1610 Naloxone HCl 0.4 MG ONCE PRN 11/08 1615 AC IV Nitroglycerin 0.4 MG 11/03 2200 AC 11/08 TOP 2108 Oxycodone/ 1 TAB Q6P PRN 11/08 1615 CAN Acetaminophen PO Polyethylene Glycol 17 GM DAILY 11/05 1507 AC 11/09 PO 0856 Potassium Chloride 20 MEQ BID 10/27 2200 DC 11/08 PO 0939 Sodium Chloride 1,000 ML Q10H 11/09 0900 AC 11/09 IV 11/09 1859 0924 Tramadol HCl 50 MG Q8P PRN 11/08 1615 AC PO Vancomycin HCl 2,000 MG Q12 11/08 1144 AC 11/09 Sodium Chloride 500 ML IV 0924 Vital Signs & I&O Last 24 Hrs of Vitals and I&O: Vital Signs Date Time Temp Pulse Resp B/P B/P Pulse O2 O2 Flow FiO2 Mean Ox Delivery Rate 11/09 0858 102.4 82 20 122/78 11/09 0857 102.4 82 20 122/78 11/09 0857 102.4 82 20 122/78 11/09 0800 Nasal 2.0L Cannula 11/09 0534 102.4 11/09 0343 82 96 11/09 0256 99.3 11/09 0034 90 100 11/09 0024 103.0 86 20 122/78 97 BIPAP 11/09 0015 103.2 11/09 0000 103.2 11/09 0000 BIPAP 30% 11/08 2258 94 95 11/08 2108 126 11/08 2107 103.2 11/08 2057 103.2 11/08 1610 142/70 11/08 1609 102.7 11/08 1600 102.7 113 20 140/80 90 11/08 1242 102.6 11/08 1101 101.5 Intake & Output 11/09 1600 11/09 0800 11/09 0000 Intake Total 240 750 Output Total Balance 240 750 Intake, IV 0 500 Intake, Oral 240 250 Number 1 0 Bowel Movements Patient 374 lb Weight Weight Bed scale Measurement Method Exam General Appearance: alert, awake, obese Head: atraumatic Respiratory: chest non-tender, decreased breath sounds, crackles, rhonchi, no wheezing Cardiovascular: regular rate/rhythm Abdomen: normal bowel sounds, soft, non-tender, obese Back: back tenderness Extremities: bilateral pitting edema Results Last 24 Hrs of Lab Results: Laboratory Tests 11/09/16 0630: Anion Gap 12, Estimated GFR 51 L, BUN/Creatinine Ratio 25.7 H, CBC w Diff NO MAN DIFF REQ, RBC 4.85, MCV 94.0, MCH 30.7, RDW 17.3 H, MPV 10.0, Gran % 87.5 H, Lymphocytes % 2.9 L, Monocytes % 9.5 H, Eosinophils % 0, Basophils % 0.1, Absolute Granulocytes 14.1 H, Absolute Lymphocytes 0.5 L, Absolute Monocytes 1.5 H, Absolute Eosinophils 0, Absolute Basophils 0, PUBS MCHC 32.7 L 11/08/16 1055: Anion Gap 11, Estimated GFR > 60, BUN/Creatinine Ratio 23.0, CBC w Diff MAN DIFF ORDERED, RBC 4.68 L, MCV 93.0, MCH 30.2, RDW 16.8 H, MPV 9.6, Gran % 85.7 H, Lymphocytes % 3.4 L, Monocytes % 10.6 H, Eosinophils % 0.3, Basophils % 0 L, Absolute Granulocytes 16.1 H, Absolute Lymphocytes 0.6 L, Absolute Monocytes 2.0 H, Absolute Eosinophils 0, Absolute Basophils 0, Platelet Estimate VERIFIED BY SMEAR, Basophilic Stippling SLIGHT, Anisocytosis 1+, PUBS MCHC 32.5 L Last 24 Hrs of Micro Results: Microbiology Date/Time Procedure - Status Source Growth 11/09 0700 Blood Culture - RECD BLOOD 11/09 0630 Blood Culture - RECD BLOOD 11/07 1944 Urine Culture - RES URINE ROUT 11/07 185 Blood Culture - RES BLOOD METH RESIST STAPH AUREUS 11/07 184 Blood Culture - RES BLOOD METH RESIST STAPH AUREUS 11/07 1816 Respiratory Culture - CAN LOWER RESP Cancelled: SPECIMEN NOT RECEIVED IN LABORATORY 11/07 1816 Gram Stain - CAN LOWER RESP Cancelled: SPECIMEN NOT RECEIVED IN LABORATORY Diagnostic Data CXR Findings: EXAM TYPE: RAD - XRY-PORTABLE CHEST XRAY EXAMINATION: XR PORTABLE CHEST CLINICAL INFORMATION: New onset fever. COMPARISON: Chest done on 11/02/2016. TECHNIQUE: Portable frontal upright 80 degrees view of the chest was obtained. FINDINGS: Evaluation is slightly technically limited due to presence of motion blur. Grossly, both lung gutierrez appear symmetrically expanded and grossly appear clear. The cardiac mediastinal silhouette remain moderately enlarged. There is no definite evidence of any pleural effusion identified on the current study. Dual-lead pacer wires are visualized, not optimally localized on this limited image. IMPRESSION: 1. Technically limited study, grossly clear lung gutierrez. 2. No gross evidence of pleural effusion. US Findings: EXAM TYPE: US - US-UNILATERAL VENOUS DOPPLER EXAMINATION: US TRIPLEX UPPER EXTREMITY UNILATERAL, RIGHT CLINICAL INFORMATION: Weakness and tingling. COMPARISON: None. TECHNIQUE: Color-flow triplex imaging with spectral analysis and compression Doppler were performed on the right upper extremity. Study is limited due to patient body habitus. FINDINGS: Respiratory variation, normal compression and augmented flow are noted throughout the upper extremity. The visualized right internal jugular vein, subclavian vein, axillary vein, basilic vein, brachial vein, and cephalic vein show no evidence of deep venous thrombosis. No soft tissue fluid collection is seen. IMPRESSION: Slightly limited examination due to patient body habitus. Otherwise, normal triplex scan without evidence of deep venous thrombosis involving the right upper extremity. Impression/Plan Impression/Plan Impression/Plan: Impression/Plan: 1. Bacteremia, patient grow MRSA in his blood, spiking fever 2. Acute hypoxemic respiratory failure, secondary to acute HFpEF, on IV Lasix. 3. Underlying heart block, s/p dual chamber pacemaker placement. 4. History of COPD, no evidence of bronchospasm at present. 5. OHS/DAGOBERTO. Chronic hypercarbic respiratory failure, on nocturnal bipap. 6. Chronic venous stasis/lower extremity edema. 7. Minimally elevated troponin. 8. Hypertension. 9. Hyperlipidemia. 10. Constipation. Recommendations: * Continue nocturnal BiPAP. * Continue nebs/TRC. * Diuresis as recommended by cardiology. * Continue medication for blood pressure control. * Continue antibiotic as recommended by ID * Follow-up echocardiogram results * PT, out of bed to chair daily. * Continue bowel regimen. * DVT prophylaxis at all times. * Discharge planning. * Continue telemetry monitoring.
[2016-11-09 10:02] LABS: GRANULOCYTE % 87.5 % (42.2-75.2)
--- NOTE | 2016-11-09 10:36 | PN- Att Addend ---
Attending MD Review Statement Attending Statement Attending MD Statement: examined this patient, discuss w/resident/PA/[employer], agreed w/resident/PA/[employer], reviewed EMR data (avail), discussed w/nursing, discussed w/ case mgmt Attending Assessment/Plan: Laboratory Tests 11/09/16 0630: Anion Gap 12, Estimated GFR 51 L, BUN/Creatinine Ratio 25.7 H, CBC w Diff NO MAN DIFF REQ, RBC 4.85, MCV 94.0, MCH 30.7, RDW 17.3 H, MPV 10.0, Gran % 87.5 H, Lymphocytes % 2.9 L, Monocytes % 9.5 H, Eosinophils % 0, Basophils % 0.1, Absolute Granulocytes 14.1 H, Absolute Lymphocytes 0.5 L, Absolute Monocytes 1.5 H, Absolute Eosinophils 0, Absolute Basophils 0, PUBS MCHC 32.7 L 11/08/16 1055: Anion Gap 11, Estimated GFR > 60, BUN/Creatinine Ratio 23.0, CBC w Diff MAN DIFF ORDERED, RBC 4.68 L, MCV 93.0, MCH 30.2, RDW 16.8 H, MPV 9.6, Gran % 85.7 H, Lymphocytes % 3.4 L, Monocytes % 10.6 H, Eosinophils % 0.3, Basophils % 0 L, Absolute Granulocytes 16.1 H, Absolute Lymphocytes 0.6 L, Absolute Monocytes 2.0 H, Absolute Eosinophils 0, Absolute Basophils 0, Platelet Estimate VERIFIED BY SMEAR, Basophilic Stippling SLIGHT, Anisocytosis 1+, PUBS MCHC 32.5 L Vital Signs Date Time Temp Pulse Resp B/P B/P Pulse O2 O2 Flow FiO2 Mean Ox Delivery Rate 11/09 0858 102.4 82 20 12211/09 0857 102.4 82 20 12211/09 0857 102.4 82 20 11/09 0800 Nasal 2.0L Cannula 11/09 0534 102.4 11/09 0343 82 96 11/09 0256 99.3 11/09 0034 90 100 11/09 0024 103.0 86 20 97 BIPAP 11/09 0015 103.2 11/09 0000 103.2 11/09 0000 BIPAP 30% 11/08 2258 94 95 11/08 2108 126 11/08 2106 103.2 11/08 2056 103.2 11/08 1610 142/70 11/08 1609 102.7 11/08 1600 102.7 113 20 140/80 90 11/08 1242 102.6 11/08 1101 101.5 Patient seen and examined at bedside. Discussed with patient the care plan. Patient overnight continued having fevers. His blood cultures are positive for MRSA. Looked at his wound on the right buttock area in the sacral region. Does not look infected. Patient does complain of back pain especially with movement of his right lower extremity. Because of the patient's morbid obesity and is worsening of renal functions we will not be able to do the MRI. We will get a CT scan of the lumbosacral spine without contrast. We will also get an echocardiogram transthoracic today. We discussed it with manager e commerce and the plan is to possibly transfer the patient to [facility] given the inability to do the MRI here and the possibility if the pacemaker is infected he will need removal of that. Cardiology is helping us coordinate the transfer. Acute kidney injury. Likely secondary to ketorolac versus secondary to being on Lasix. We will DC the Lasix and K total lack and gave him 500 mL of normal saline. We will repeat the creatinine in the afternoon.
[2016-11-09] MEDS ORDERED: VANCOMYCIN2 GM/250 M IV (10:46)
--- NOTE | 2016-11-09 10:52 | Discharge Summary ---
See Addendum Visit Information Visit Dates Admission Date: 10/27/16 Discharge Date: 11/09/2016 Hospital Course Course Attending Physician: SADIE HENDRICKSON,PAUL Arechiga Primary Care Physician: JANETTE HENDRICKSON,[facility] Course: Patient is a 66 year old gentleman with PMH of HTN, HLD, diastolic HF, COPD, DAGOBERTO , cardiac arrest during a recent admission at [place] in Jun 2016, who was brought in to the ED due to hypoxia, cyanosis, 2 days of SOB at rest and orthopnea. Patient was also bradycardic since the previous admission in June and was supposed to have a pacemaker placed, patient came to the ED due to increased work of breathing and leg swelling as well as dizziness. He was initially admitted to the ICU for close monitoring as his EKG revealed heart block (mostly first degree but also second degree, mobitz type 2). Patient underwent pacemaker placement on 11/01/16. He is downgraded to telemetry since 11/02/16. The following were addressed during his stay: MRSA BACTERMIA On 11/07/2016 patient developed episode of fever of 101, and he was pancultured. Blood cultures showed growth of MRSA. Patient was put on IV vancomycin, however he was a still spiking fevers with elevated WBC. Patient also complained of increased back pain. Due to patient body habitus getting MRI was not feasible. Given the patient MRSA bacteremia, patient needs to be transferred to higher level of care for taking out the pacemaker and additional imaging and management of the bacteremia. patient will be transferred to [facility] with Dr.Jibin Contreras. Acute hypoxic hypercarbic respiratory failure WITH PHM OF COPD AND CHF ABG showed hypercarbia and respiratory acidosis and CXR showed hazy opacities at the bases of the lungs with possible pneumonia. Patient received IV ceftazidime and IV vancomycin for two days which were discontinued as the patient remained afebrile and did not have elevated WBC. Patient has a history of COPD, has chronic coughing with phlegm, did not report increased coughing and sputum production nor any changes in the color of the sputum. Initial exam revealed scattered rhonchi, no wheezing or crackles. Most likely etiology is CHF exacerbation with ProBNP elevated, orthopnea, worsening SOB and increased LE edema and developing lower extremity skin tear. He also initially required Bipap, his oxygen requirement gradually went down to 2L O2 per NC. He has also been receiving IV lasix 40 mg IV BID. Repeat CXR on : Bilateral small pleural effusions and associated bilateral lower lung consolidation/atelectasis. DAGOBERTO Patient has sleep study done and requires Bipap at night. Heart block and bradycardia - resolved - s/p pacemaker patient had second degree mobitz I and II in the serial EKGs - s/p pacemaker on 11/01/16 Repeat xray on 11/02/16: Right atrial and right ventricular pacer leads in place. Chronic venous stasis ulcers and a decubitus ulcer dry 3x4 cm stage 1 ulcer on the left lower extremity and 1x1 ulcer on the right lower ext also there is a 4x5 cm ulcer on the medial of right buttock with black eschar. per wound consult daily change of dressing with xeroform and kerlix on the right lower ext and santyl and xeroform on the right buttock ulcer. Right arm swelling started 11/03/15 in the pm, RUE venous doppler was negative for DVT, arm is still slightly swollen and pt reports numbness and tingling. no weakness, and ROM of the arm and hand are normal. History of HTN, HLD, seizure disorder We continued home medications: keppra switched from IV to PO, statin, lisinopril Allergies: Coded Allergies: NO KNOWN ALLERGIES (06/26/16) Significant Procedures: [place] [address] MEDICAL RECORDS DEPARTMENT OPERATIVE REPORT PATIENT: LISA BRIAN PRESENT AGE: 66 PATIENT ACCOUNT NO: [id number] DATE OF : 52 ADMIT/SERVICE DATE: 10/27/16 ATTENDING PHYSICIAN: Toby NARAYAN MD PATIENT CARE UNIT CONFIDENTIAL COPY Operative/Inv Procedure Report Surgery Date: 11/01/16 Name of Procedure: Implantation of dual-chamber pacemaker, atrial and ventricular leads Pre-Operative Diagnosis: Second-degree AV block Post-Operative Diagnosis: Second-degree AV block Estimated Blood Loss: less than 50ml Surgeon/Records Supervisor: Lang Wakefield M.D. Anesthesia: local monitored anesthesi Implants: Medtronic [id number] Advisa SOLO conditional dual-chamber pacemaker, serial number [id number] Medtronic atrial lead model #611347, serial number [id number] Medtronic ventricular lead model #524108, serial number [id number] Complications: None Condition: Improved Operative/Procedure Note Note: The patient is a 66-year-old man with progressive second-degree AV block. He was admitted for respiratory failure and congestive heart failure. When his condition improved significantly he was recommended a dual chamber pacemaker. Originally it was thought he might need to be intubated for the procedure but anesthesia providers were able to sedate him without the need for endotracheal intubation and he tolerated this well. Informed consent was obtained from the patient. He was brought to the operating suite in the fasting state. He was prepped and draped in the usual manner. 3 g of Kefzol IV was given prophylactically prior to the procedure as he was very large. Full timeout was taken and all agreed with the procedure, patient identification, equipment and personnel. Local anesthesia was instilled in the right subclavian area and an incision made in this area and carried down to the deltopectoral groove. The groove was opened and the vein was sought but there was no adequate vein. Next, a pocket was made in the inferior part of the incision using additional local anesthesia, blunt and sharp dissection, and stuffed with a Kefzol-soaked sponge. Next, a needle was placed in the subclavian vein with minimal difficulty. A wire was placed into central circulation through the needle and over the wire a #9 introducer was passed. Through the introducer the ventricular lead was passed into the apex of the right ventricle under fluoroscopic control, retaining the wire. The lead was fixated using the active fixation feature. Threshold in the ventricle was 1.2 V, current 1.2 milliamps and impedance 640 ohms. R wave was 8.6 mV. This was considered satisfactory for an acute implant with an active fixation lead. Next over the retained wire a #7 Faroese introducer was passed. Through the introducer the atrial lead was passed into central circulation and manipulated into the right atrial appendage under fluoroscopic control, and screwed into place using the active fixation feature. Threshold in the atrium was 0.9 V, current 1.7 mA, impedance 615 ohms, P waves 2.6 mV. These were considered satisfactory. Next the leads were sewn into place using the sleeve devices around the leads and nonabsorbable sutures sutured to the pre-muscular fascia. Next the pacemaker was brought into the field and attached to the leads in the proper sequence and appropriate pacing ensued. The sponge was removed from the pocket and the pacemaker was placed in the pocket and sewn into place using a nonabsorbable suture through the suture hole of the pacemaker and sewn to the muscularis. The wound was flushed with antibiotic solution and inspected and found to be dry. The wound was closed in 3 layers of absorbable suture material including a final layer of subcuticular sutures with buried knots. The wound was dressed appropriately with Steri-Strips and a dressing. The patient was removed to the recovery room awake and alert and pacing well. Sponge, needle and instrument counts were correct at the end of the procedure. Postoperative EKG and chest x-ray documented good electrical and anatomic position and function of the system. Discharge Disposition: PACU CC: Toby NARAYAN MD DICTATED BY: LANG WAKEFIELD MD, V. DATE/TIME DICTATED:11/02/161432 DIRECTOR OF OPERATIONS HOME HEALTH:CAROLINE DATE/TIME TRANSCRIBED:11/02/161432 REPORT NUMBER:[id number] CONFIDENTIAL, DO NOT COPY WITHOUT APPROPRIATE AUTHORIZATION. <Electronically signed by LANG WAKEFIELD MD> 11/02/16 [address] [place] [address] MEDICAL RECORDS DEPARTMENT OPERATIVE REPORT PATIENT: LISA BRIAN PRESENT AGE: 66 PATIENT ACCOUNT NO: [id number] DATE OF : 52 ADMIT/SERVICE DATE: 10/27/16 ATTENDING PHYSICIAN: Toby NARAYAN MD PATIENT CARE UNIT CONFIDENTIAL COPY Operative/Inv Procedure Report Surgery Date: 11/01/16 Name of Procedure: Implantation of dual-chamber pacemaker, atrial and ventricular leads Pre-Operative Diagnosis: Second-degree AV block Post-Operative Diagnosis: Second-degree AV block Estimated Blood Loss: less than 50ml Surgeon/Records Supervisor: Lang Wakefield M.D. Anesthesia: local monitored anesthesi Implants: Medtronic [id number] Advisa SOLO conditional dual-chamber pacemaker, serial number [id number] Medtronic atrial lead model #431290, serial number [id number] Medtronic ventricular lead model #886466, serial number [id number] Complications: None Condition: Improved Operative/Procedure Note Note: The patient is a 66-year-old man with progressive second-degree AV block. He was admitted for respiratory failure and congestive heart failure. When his condition improved significantly he was recommended a dual chamber pacemaker. Originally it was thought he might need to be intubated for the procedure but anesthesia providers were able to sedate him without the need for endotracheal intubation and he tolerated this well. Informed consent was obtained from the patient. He was brought to the operating suite in the fasting state. He was prepped and draped in the usual manner. 3 g of Kefzol IV was given prophylactically prior to the procedure as he was very large. Full timeout was taken and all agreed with the procedure, patient identification, equipment and personnel. Local anesthesia was instilled in the right subclavian area and an incision made in this area and carried down to the deltopectoral groove. The groove was opened and the vein was sought but there was no adequate vein. Next, a pocket was made in the inferior part of the incision using additional local anesthesia, blunt and sharp dissection, and stuffed with a Kefzol-soaked sponge. Next, a needle was placed in the subclavian vein with minimal difficulty. A wire was placed into central circulation through the needle and over the wire a #9 introducer was passed. Through the introducer the ventricular lead was passed into the apex of the right ventricle under fluoroscopic control, retaining the wire. The lead was fixated using the active fixation feature. Threshold in the ventricle was 1.2 V, current 1.2 milliamps and impedance 640 ohms. R wave was 8.6 mV. This was considered satisfactory for an acute implant with an active fixation lead. Next over the retained wire a #7 Faroese introducer was passed. Through the introducer the atrial lead was passed into central circulation and manipulated into the right atrial appendage under fluoroscopic control, and screwed into place using the active fixation feature. Threshold in the atrium was 0.9 V, current 1.7 mA, impedance 615 ohms, P waves 2.6 mV. These were considered satisfactory. Next the leads were sewn into place using the sleeve devices around the leads and nonabsorbable sutures sutured to the pre-muscular fascia. Next the pacemaker was brought into the field and attached to the leads in the proper sequence and appropriate pacing ensued. The sponge was removed from the pocket and the pacemaker was placed in the pocket and sewn into place using a nonabsorbable suture through the suture hole of the pacemaker and sewn to the muscularis. The wound was flushed with antibiotic solution and inspected and found to be dry. The wound was closed in 3 layers of absorbable suture material including a final layer of subcuticular sutures with buried knots. The wound was dressed appropriately with Steri-Strips and a dressing. The patient was removed to the recovery room awake and alert and pacing well. Sponge, needle and instrument counts were correct at the end of the procedure. Postoperative EKG and chest x-ray documented good electrical and anatomic position and function of the system. Discharge Disposition: PACU CC: Toby NARAYAN MD DICTATED BY: LANG WAKEFIELD MD, V. DATE/TIME DICTATED:11/02/161432 DIRECTOR OF OPERATIONS HOME HEALTH:CAROLINE DATE/TIME TRANSCRIBED:11/02/161432 REPORT NUMBER:[id number] CONFIDENTIAL, DO NOT COPY WITHOUT APPROPRIATE AUTHORIZATION. <Electronically signed by LANG WAKEFIELD MD> 11/02/16 1450 CC: LANG WAKEFIELD MD, V. Report Status: Signed Report #: [id number] Page[p pg] CC: LANG WAKEFIELD MD, V. Report Status: Signed Report #: [id number] Page[p pg] Pertinent Lab Results: Laboratory Tests 11/09 11/09 1615 0630 Chemistry Sodium (137 - 145 mmol/L) 136 L 137 Potassium (3.5 - 5.1 mmol/L) 4.8 4.7 Chloride (98 - 107 mmol/L) 96 L 99 Carbon Dioxide (22 - 30 mmol/L) 28 26 Anion Gap (5 - 16) 11 12 BUN (9 - 20 mg/dL) 44 H 36 H Creatinine (0.7 - 1.2 mg/dL) 1.6 H 1.4 H Estimated GFR (>60 ml/min) 44 L 51 L BUN/Creatinine Ratio (7 - 25 %) 27.5 H 25.7 H Hematology CBC w Diff NO MAN DIFF REQ WBC (4.8 - 10.8 /CUMM) 16.1 H RBC (4.70 - 6.10 /CUMM) 4.85 Hgb (14.0 - 18.0 G/DL) 14.9 Hct (42 - 52 %) 45.6 MCV (80.0 - 94.0 FL) 94.0 MCH (27.0 - 31.0 PG) 30.7 RDW (11.5 - 14.5 %) 17.3 H Plt Count (130 - 400 /CUMM) 140 MPV (7.4 - 10.4 FL) 10.0 Gran % (42.2 - 75.2 %) 87.5 H Lymphocytes % (20.5 - 51.1 %) 2.9 L Monocytes % (1.7 - 9.3 %) 9.5 H Eosinophils % (0 - 5 %) 0 Basophils % (0.0 - 2.0 %) 0.1 Absolute Granulocytes (1.4 - 6.5 /CUMM) 14.1 H Absolute Lymphocytes (1.2 - 3.4 /CUMM) 0.5 L Absolute Monocytes (0.10 - 0.60 /CUMM) 1.5 H Absolute Eosinophils (0.0 - 0.7 /CUMM) 0 Absolute Basophils (0.0 - 0.2 /CUMM) 0 PUBS MCHC (33.0 - 37.0 G/DL) 32.7 L 11/08 1055 Chemistry Sodium (137 - 145 mmol/L) 136 L Potassium (3.5 - 5.1 mmol/L) 4.4 Chloride (98 - 107 mmol/L) 98 Carbon Dioxide (22 - 30 mmol/L) 27 Anion Gap (5 - 16) 11 BUN (9 - 20 mg/dL) 23 H Creatinine (0.7 - 1.2 mg/dL) 1.0 Estimated GFR (>60 ml/min) > 60 BUN/Creatinine Ratio (7 - 25 %) 23.0 Hematology CBC w Diff MAN DIFF ORDERED WBC (4.8 - 10.8 /CUMM) 18.8 H RBC (4.70 - 6.10 /CUMM) 4.68 L Hgb (14.0 - 18.0 G/DL) 14.1 Hct (42 - 52 %) 43.5 MCV (80.0 - 94.0 FL) 93.0 MCH (27.0 - 31.0 PG) 30.2 RDW (11.5 - 14.5 %) 16.8 H Plt Count (130 - 400 /CUMM) 159 MPV (7.4 - 10.4 FL) 9.6 Gran % (42.2 - 75.2 %) 85.7 H Lymphocytes % (20.5 - 51.1 %) 3.4 L Monocytes % (1.7 - 9.3 %) 10.6 H Eosinophils % (0 - 5 %) 0.3 Basophils % (0.0 - 2.0 %) 0 L Absolute Granulocytes (1.4 - 6.5 /CUMM) 16.1 H Absolute Lymphocytes (1.2 - 3.4 /CUMM) 0.6 L Absolute Monocytes (0.10 - 0.60 /CUMM) 2.0 H Absolute Eosinophils (0.0 - 0.7 /CUMM) 0 Absolute Basophils (0.0 - 0.2 /CUMM) 0 Platelet Estimate (ADEQUATE) VERIFIED BY SMEAR Basophilic Stippling SLIGHT Anisocytosis 1+ PUBS MCHC (33.0 - 37.0 G/DL) 32.5 L 11/07 11/07 1944 0834 Chemistry Sodium (137 - 145 mmol/L) 139 Potassium (3.5 - 5.1 mmol/L) 4.4 Chloride (98 - 107 mmol/L) 96 L Carbon Dioxide (22 - 30 mmol/L) 33 H Anion Gap (5 - 16) 9 BUN (9 - 20 mg/dL) 25 H Creatinine (0.7 - 1.2 mg/dL) 1.0 Estimated GFR (>60 ml/min) > 60 BUN/Creatinine Ratio (7 - 25 %) 25.0 Magnesium (1.6 - 2.3 mg/dL) 2.2 Urines Urine Color (YEL,AMB,STR) YEL Urine Clarity (CLEAR) CLEAR Urine pH (5.0 - 8.0) 8.0 Ur Specific [place] (1.001 - 1.035) 1.010 Urine Protein (NEG,<30 MG/DL) NEG Urine Ketones (NEG) NEG Urine Nitrite (NEG) NEG Urine Bilirubin (NEG) NEG Urine Urobilinogen (0.1 - 1.0 EU/dl) 1.0 Ur Leukocyte Esterase (NEG) NEG Ur Microscopic EXAM NOT REQUIRED Urine Hemoglobin (NEG) NEG Urine Glucose (N MG/DL) NEG Disposition Summary Disposition Principal Diagnosis: MRSA BACTERMIA 2ND [place]GRE[place] HEART BLOCK STATUS POST PACEMAKER Additional Diagnosis: HTN HLP DAGOBERTO COPD Discharge Disposition: other general hospital Discharge Instructions General Discharge Information Code Status: Full Code Patient's Diet: HEART HEALTHY Patient's Activity: TOLERATED Follow-Up Instructions/Appts: -You are being transferred to [facility] for removal of the pacemaker and treatment and management of the MRSA bacteremia. -Please follow-up with your land law examiner 7 days after discharge. -Please follow-up with her diesel power shovel operator 7 days after discharge regarding the DAGOBERTO. -Please follow-up with your primary care provider within 7 days after discharge. -We have made changes to your home medications, please read the instructions carefully. -Please come back to the hospital if your symptoms got worse. Medications at Discharge Discharge Medications: Stop taking the following medications: Furosemide (Furosemide) 40 MG TABLET ORAL TWICE DAILY Qty = 30 Lisinopril (Lisinopril) 40 MG TABLET ORAL DAILY Qty = 30 Potassium Chloride (Potassium Chloride) 20 MEQ TAB.ER.PRT ORAL TWICE DAILY Continue taking these medications: Simvastatin (Simvastatin*) 20 MG TABLET 1 Tablet ORAL Every night Qty = 30 Comments: NOT GIVEN IN HOSPITAL Aspirin (Ecotrin*) 81 MG TABLET.DR 1 Tablet ORAL DAILY Qty = 30 Comments: Last Taken: 11/09/16 Time: 9AM Nitroglycerin (Nitroglycerin Patch) 1 EACH PATCH.TD24 0.4 Milligram On the skin DAILY Qty = 30 Comments: Last Taken:11/08/16 Time:10PM Levetiracetam (Keppra) 1,000 MG TABLET 1 Tablet ORAL TWICE DAILY Days = 30 Instructions: Please take this medication for seizure prophylaxis. You will need to follow up with the neurlogist regarding assisted use of this medication. Comments: Last Taken: 11/09/16 Time: 9AM Hydralazine HCl (Hydralazine HCl) 25 MG TABLET 1 Tablet ORAL THREE TIMES DAILY Qty = 30 Comments: Last Taken: 11/09/16 Time: 11AM Start taking the following new medications: Vancomycin/0.9 % Sod Chloride (Vancomycin-0.9% NaCl 2 G/250) 2 GRAM/250 ML PLAST..BAG 1 Bag INTRAVEN EVERY 12 HOURS Qty = 10 No Refills Metoprolol Tartrate (Metoprolol Tartrate) 25 MG TABLET 1 Tablet ORAL TWICE DAILY Qty = 60 No Refills Comments: Last Taken:11/09/16 Time:9AM Copies To: Toby NARAYAN MD; JANETTE HENDRICKSON,BLAYNE WAKEFIELD MD,LANG Ma
--- NOTE | 2016-11-09 10:55 | PN- Student ---
Subjective Subjective: Medical Student Daily Progress Note: Mr. Phong Weaver is a 66 yo M with PMH significant for diastolic CHF, bradycardia c/b cardiac arrest in 06/2016, chronic venous stasis, and COPD who was admitted on 10/27/16 for acute on chronic hypoxemic respiratory failure and CHF exacerbation. On this admission he has undergone pacemaker implantation. He has developed bacteremia, supsected to be related to pacemaker placement. This morning, the patient is lethargic but arousable. He complains of back pain, but says it is getting better. He denies dyspnea, chest pain, headache, dizziness, or abdominal discomfort. He is frustrated and has been refusing further diagnostic imaging d/t "unbearable pain." Current Medications Sig/Ji Start time Last Medication Dose Route Stop Time Status Admin Acetaminophen 1,000 MG ONCE ONE 11/09 0005 DC 11/09 N/A 1 UNIT IV 11/09 0019 0015 Acetaminophen 650 MG Q6 PRN 11/08 1449 AC 11/08 PO 2107 Acetaminophen 650 MG Q8P PRN 10/27 1500 DC 11/08 PO 0939 Albuterol Sulfate 3 ML Q4P PRN 10/27 1945 AC INH Aspirin Buffered 81 MG DAILY 10/28 1000 AC 11/09 PO 0857 Atorvastatin Calcium 20 MG 1700 10/27 1700 AC 11/08 PO 1610 Collagenase 1 SAM DAILY 11/03 1000 AC 11/09 TOP 0858 Cyclobenzaprine HCl 5 MG ONCE ONE 11/08 2030 DC 11/09 PO 11/08 2031 0020 Docusate Sodium 100 MG BID 11/02 1000 AC 11/09 PO 0856 Furosemide 80 MG DAILY 11/08 1000 DC 11/08 PO 0940 Glycerin/Mineral Oil 1 SAM TID PRN 11/03 0800 AC 11/04 TOP 1658 Guaifenesin 600 MG Q12 11/08 1140 AC 11/09 PO 0858 Hydralazine HCl 25 MG TID 10/27 1600 AC 11/09 PO 0857 Hydromorphone HCl 1 MG ONCE ONE 11/09 0830 DC 11/09 IV 11/09 0831 0957 Ketorolac 30 MG ONCE ONE 11/09 0545 DC 11/09 Tromethamine IV 11/09 0546 0545 Levetiracetam 1,000 MG BID 11/02 1144 AC 11/09 PO 0857 Lisinopril 40 MG DAILY 10/27 1600 AC 11/09 PO 0858 Metoprolol Tartrate 25 MG BID 11/01 2200 AC 11/09 PO 0857 Morphine Sulfate 2 MG ONCE ONE 11/08 1615 DC 11/08 IV 11/08 1616 1610 Naloxone HCl 0.4 MG ONCE PRN 11/08 1615 AC IV Nitroglycerin 0.4 MG 2200 11/03 2200 AC 11/08 TOP 2108 Oxycodone/ 1 TAB Q6P PRN 11/08 1615 CAN Acetaminophen PO Polyethylene Glycol 17 GM DAILY 11/05 1507 AC 11/09 PO 0856 Potassium Chloride 20 MEQ BID 10/27 2200 DC 11/08 PO 0939 Sodium Chloride 1,000 ML Q10H 11/09 0900 AC 11/09 IV 11/09 1859 0924 Tramadol HCl 50 MG Q8P PRN 11/08 1615 AC PO Vancomycin HCl 2,000 MG Q12 11/08 1144 AC 11/09 Sodium Chloride 500 ML IV 0924 Objective Objective: Vital Signs Date Time Temp Pulse Resp B/P B/P Pulse O2 O2 Flow FiO2 Mean Ox Delivery Rate 11/09 0858 102.4 82 20 122/78 11/09 0857 102.4 82 20 122/78 11/09 0857 102.4 82 20 122/78 11/09 0800 Nasal 2.0L Cannula 11/09 0534 102.4 11/09 0343 82 96 11/09 0256 99.3 11/09 0034 90 100 11/09 0024 103.0 86 20 122/78 97 BIPAP 11/09 0015 103.2 11/09 0000 103.2 11/09 0000 BIPAP 30% 11/08 2258 94 95 11/08 2108 126 11/08 210 103.2 11/08 2057 103.2 11/08 1610 142/70 11/08 1609 102.7 11/08 1600 102.7 113 20 140/80 90 11/08 1242 102.6 11/08 1101 101.5 Intake & Output 11/09 1600 11/09 0800 11/09 0000 Intake Total 240 750 Output Total Balance 240 750 Intake, IV 0 500 Intake, Oral 240 250 Number 1 0 Bowel Movements Patient 374 lb Weight Weight Bed scale Measurement Method Telemetry Overnight: single pacing, rate 84 - 88 bpm. No acute events General: lethargic but arousable HEENT: moist mucosa Neck: supple without adenopathy CV: RRR. Pacemaker site clean, non-erythematous Pulmonary: rhonchi throughout all gutierrez GI: obese, soft, non-tender. Bowel sounds present Extremities: edema x4 extremities. Chronic venous stasis in BLE, wounds are non- draining and non-erythematous Results Results: Laboratory Tests 11/09/16 0630: Anion Gap 12, Estimated GFR 51 L, BUN/Creatinine Ratio 25.7 H, CBC w Diff NO MAN DIFF REQ, RBC 4.85, MCV 94.0, MCH 30.7, RDW 17.3 H, MPV 10.0, Gran % 87.5 H, Lymphocytes % 2.9 L, Monocytes % 9.5 H, Eosinophils % 0, Basophils % 0.1, Absolute Granulocytes 14.1 H, Absolute Lymphocytes 0.5 L, Absolute Monocytes 1.5 H, Absolute Eosinophils 0, Absolute Basophils 0, PUBS MCHC 32.7 L Microbiology 11/07 194 URINE ROUT: Urine Culture - No growth 11/07 1853 BLOOD: Blood Culture - RES METH RESIST STAPH AUREUS 11/07 184 BLOOD: Blood Culture - RES METH RESIST STAPH AUREUS Assessment/Plan Assessment: Mr. Phong Weaver is a 66 yo M with PMH significant for diastolic CHF, bradycardia c/b cardiac arrest in 06/2016, chronic venous stasis, and COPD who was admitted on 10/27/16 for acute on chronic hypoxemic respiratory failure and CHF exacerbation. Hospital course c/b bacteremia. Plan: Hypoxemic Respiratory Failure: 2/2 acute CHF exacerbation; resolving. Oxygen requirements returning to baseline. SpO2 has been WNL. CXR on 11/08 was negative. Patient has baseline cough and baseline BiPAP requirement at night. * Continue supplemental oxygen to keep SpO2 >92% * Continue nebulizers * Encourage incentive spirometry/OOB if tolerated * Pulmonology recommendations Bacteremia: Has been febrile over the course of the past 2 days. Tmax: 103.2. Blood cultures growing MRSA. Urine culture without growth. All ulcers and wounds inspected by ID, none appear to be infected. Back pain concerning for bacterial seeding. Possible source: pacemaker pocket, pacemaker wires * ID following, recommendations * Repeat blood cultures * CT chest to evaluate for potential infection sites * TTE to r/o bacterial endocarditis, although MITCHELL would be more accurate * CT lumbosacral spine to evaluate for infectious process * ?MRI, but patient too large for MRI at this facility * Vancomycin 2000mg q12h, possible addition of 4th generation Cephalosporin * Possible transfer to [facility] for MRI/pacemaker removal Diastolic CHF exacerbation: Echo in 06/2016 showed EF of 50-55%. Had volume overload on admission, but has resolved with po Lasix administration. Extremities are still edematous, but appear to be nearing baseline. No longer complains of dyspnea. * Continue telemetry monitoring * Discontinue Lasix given BUN/Cr increase to 36/1.4 * Caution with IV fluids * Continue Metoprolol 25mg BID, Atorvastatin 20mg daily, Hydralazine 25mg po TID * Cardiology recommendations Bradycardia s/p Pacemaker placement: patient had bradycardia noted in previous hospital admissions, with cardiac arrest in 06/2016. Holter monitoring in the week prior to this admission showed consistent bradycardia, pacemaker was recommended and implanted on this admission. Appears to be functional, bradycardia resolved. Possible source of bacteremia as discussed above. * Continue Telemetry monitoring * Cardiology recommendations Elevated BUN/Cr: had received Toradol on 11/08. Was receiving Lasix. Currently receiving Vancomycin. * Monitor daily BMP * Give 500 cc IVF over 5 hours * Recheck BUN/Cr this afternoon * Vanc trough in the am and adjust dose accordingly Code Status: Full Code Diet: Regular DVT prophylaxis: ALPs
[2016-11-09 11:04] VITALS: BP 110/72
[2016-11-09 17:02] VITALS: BP 100/62
--- NOTE | 2016-11-09 17:03 | ECHOCARDIOGRAM REPORT ---
LISA BRIAN Age: 66 : 1950 Gender: M Exam Date: 11/09/2016 10:15 Exam Location: [address] Ht (in): 70 Wt (lb): 374 BSA: 2.99 BP: 142 / 70 Ordering Physician: LEANNE MILLER MD Referring Physician: LEANNE MILLER MD Technologist: Gilberto Abdul [facility] Room Number: 178-1 Indications: INFECTIVE ENDOCARDITIS Rhythm: Other Technical Quality: Fair, Very technically difficult study FINDINGS Left Ventricle Mild left ventricular dilatation. . Hypokinetic inferior wall. Hypokinetic posterior wall. Mildly abnormal left ventricular ejection fraction estimated at 45-50%. Right Ventricle Right ventricle not well visualized, grossly normal. Catheter/pacemaker wire in the right ventricular cavity. Right Atrium Right atrium not well visualized, grossly normal. Catheter/pacemaker wire in the right atrial cavity. Left Atrium Left atrial dilatation. Mitral Valve Mitral valve thickened. Aortic Valve Aortic valve not well visualized. Diffuse thickening (sclerosis) of the aortic valve cusps without reduced excursion. Tricuspid Valve Tricuspid valve not well visualized, grossly normal. Mild tricuspid regurgitation. Pulmonic Valve Pulmonic valve not well visualized. Pericardium Small pericardial effusion. Great Vessels Aortic root and proximal ascending aorta not well visualized. CONCLUSIONS 1. This was a technically difficult and limited examination due to the patient's body habitus. No apical images were obtained. 2. Aortic sclerosis is present. 3. Mitral leaflet thickening is present with left atrial enlargement. 4. A very small pericardial effusion is present. 5. The left ventricular chamber is mildly dilated with localized inferoposterior hypokinesia and an ejection fraction of approximately 45-50 %, Complete evaluation of LV function and wall motion was not possible in the absence of adequate apical images. 6. Mild tricuspid insufficiency is present. The RV systolic pressure was not accurately assessed. 7. Pacemaker wires are present in the right heart chambers 8. The possibility of vegetative lesions was not excluded by this examiniaiton. If clinically indicated, a MITCHELL would better exclude vegetative lesions. Omer Silva M.D. (Electronically Signed) Final Date: 09 November 2016 17:03 MEASUREMENTS (Male / Female) Normal Values 2D ECHO LV Diastolic Diameter PLAX 6.2 cm 4.2 - 5.9 / 3.9 - 5.3 cm LV Systolic Diameter PLAX 4.4 cm 2.1 - 4.0 cm LV Fractional Shortening PLAX 29.0 % 25 - 46 % LV Ejection Fraction 2D Teich 54.8 % IVS Diastolic Thickness 1.4 cm LVPW Diastolic Thickness 1.4 cm LV Relative Wall Thickness 0.5 RV Internal Dim ED PLAX 4.1 cm 1.9 - 3.8 cm LVOT Diameter 2.3 cm Aortic Root Diameter 3.2 cm LA Systolic Diameter LX 4.6 cm 3.0 - 4.0 / 2.7 - 3.8 cm
--- NOTE | 2016-11-09 18:05 | Event Note ---
Event Note Event Note: Patient will be transferred to [facility] admitting doctor is Dr.JIBIN FRY
--- NOTE | 2016-11-09 19:42 | PN- Infect Dx ---
Subjective Subjective: Remains febrile/back pain; plan to tx patient to [facility] for further treatment, including PPM removal. Review of Systems Comments: 12 points per HPI. Objective Last 24 Hrs of Vital Signs/I&O Vital Signs Date Time Temp Pulse Resp B/P B/P Pulse O2 O2 Flow FiO2 Mean Ox Delivery Rate 11/09 1713 97 Nasal 2.0L Cannula 11/09 1702 102.9 97 24 100/62 91 11/09 1623 102.1 11/09 1622 100/58 11/09 1104 99.1 82 20 110/72 92 BIPAP 11/09 0858 102.4 82 20 122/78 11/09 0857 102.4 82 20 122/78 11/09 0857 102.4 82 20 122/78 11/09 0800 Nasal 2.0L Cannula 11/09 0534 102.4 11/09 0343 82 96 11/09 0256 99.3 11/09 0034 90 100 11/09 0024 103.0 86 20 122/78 97 BIPAP 11/09 0015 103.2 11/09 0000 103.2 11/09 0000 BIPAP 30% 11/08 2258 94 95 11/08 2108 126 11/08 2107 103.2 11/087 103.2 Intake & Output 11/09 1600 11/09 0800 11/09 0000 Intake Total 1450 240 750 Output Total 25 Balance 1425 240 750 Intake, IV 650 0 500 Intake, Oral 800 240 250 Number 1 0 Bowel Movements Output, Urine 25 Patient 374 lb Weight Weight Bed scale Measurement Method Physical Exam Other Physical Findings: He is lethargic but arousable in moderate distress secondary to back pain. MAXIMUM TEMPERATURE 102.9. Skin flushed face. HEENT exam poor dentition. Neck is supple with no adenopathy. Chest pacemaker site in the right upper chest with no erythema, incision clean, but tender to palpation. Lungs scattered rhonchi. Heart regular rhythm with a 2/6 systolic ejection murmur. Abdomen is obese, soft, nontender with positive bowel sounds. No CVA tenderness. Extremities marked right upper extremity edema, with no erythema, tender to palpation; chronic venous stasis changes both lower extremities, with ulcers on the medial aspect of the left leg with no surrounding erythema or tenderness. Neuro is without focality. Results Last 24 Hours of Lab Results: Laboratory Tests 11/09 11/09 1615 0630 Chemistry Sodium (137 - 145 mmol/L) 136 L 137 Potassium (3.5 - 5.1 mmol/L) 4.8 4.7 Chloride (98 - 107 mmol/L) 96 L 99 Carbon Dioxide (22 - 30 mmol/L) 28 26 Anion Gap (5 - 16) 11 12 BUN (9 - 20 mg/dL) 44 H 36 H Creatinine (0.7 - 1.2 mg/dL) 1.6 H 1.4 H Estimated GFR (>60 ml/min) 44 L 51 L BUN/Creatinine Ratio (7 - 25 %) 27.5 H 25.7 H Hematology CBC w Diff NO MAN DIFF REQ WBC (4.8 - 10.8 /CUMM) 16.1 H RBC (4.70 - 6.10 /CUMM) 4.85 Hgb (14.0 - 18.0 G/DL) 14.9 Hct (42 - 52 %) 45.6 MCV (80.0 - 94.0 FL) 94.0 MCH (27.0 - 31.0 PG) 30.7 RDW (11.5 - 14.5 %) 17.3 H Plt Count (130 - 400 /CUMM) 140 MPV (7.4 - 10.4 FL) 10.0 Gran % (42.2 - 75.2 %) 87.5 H Lymphocytes % (20.5 - 51.1 %) 2.9 L Monocytes % (1.7 - 9.3 %) 9.5 H Eosinophils % (0 - 5 %) 0 Basophils % (0.0 - 2.0 %) 0.1 Absolute Granulocytes (1.4 - 6.5 /CUMM) 14.1 H Absolute Lymphocytes (1.2 - 3.4 /CUMM) 0.5 L Absolute Monocytes (0.10 - 0.60 /CUMM) 1.5 H Absolute Eosinophils (0.0 - 0.7 /CUMM) 0 Absolute Basophils (0.0 - 0.2 /CUMM) 0 PUBS MCHC (33.0 - 37.0 G/DL) 32.7 L Last 24 Hours of Heriberto Results: [id number] JEAN-PIERRE: 11/07/16 STATUS: RES RECD: 11/07/[address]: RADHA ESCALERA MD SOURCE: BLOOD ENTR: 11/07/16-[address] [facility] [address]: SADIE HENDRICKSON, PAUL Arechiga SPDESC: 1ST/VENOUS SYLVAIN HENDRICKSON,Toby SAVAGE MD,MINNA ORDERED: BLOOD CULTURE Procedure Result > BLOOD CULTURE REPORT Preliminary 11/09/16-0845 GRAM STAIN SUGGESTIVE OF: GRAM POSITIVE COCCI IN CLUSTERS Called to/Readback by TABITHA by LAB.[facility] 11/08/16 1130 Called to/Readback by DR DARDEN by LAB.[facility] 11/08/16 1137 CULTURE: METH RESIST STAPH AUREUS ISOLATED Called to/Readback by ISRAEL by LAB.[facility] 11/09/16 0841 Recent Imaging Studies: ONCLUSIONS 1. This was a technically difficult and limited examination due to the patient's body habitus. No apical images were obtained. 2. Aortic sclerosis is present. 3. Mitral leaflet thickening is present with left atrial enlargement. 4. A very small pericardial effusion is present. 5. The left ventricular chamber is mildly dilated with localized inferoposterior hypokinesia and an ejection fraction of approximately 45-50 %, Complete evaluation of LV function and wall motion was not possible in the absence of adequate apical images. 6. Mild tricuspid insufficiency is present. The RV systolic pressure was not accurately assessed. 7. Pacemaker wires are present in the right heart chambers 8. The possibility of vegetative lesions was not excluded by this examiniaiton. If clinically indicated, a MITCHELL would better exclude vegetative lesions. Omer Silva M.D. Assessment/Plan Impression: 66-year-old man with hypertension, HFpEF, COPD, with obstructive sleep apnea, hospitalized 4 months prior to admission with CHF, complicated by cardiac arrest , with sinus bradycardia and second degree heart block, pneumonia, seizures and thrombocytopenia, admitted on October 27 with hypoxia, felt to be secondary to CHF , with a pacemaker placed 5 days after admission, now with the acute onset of fevers and leukocytosis with blood cultures 2 positive MRSA; TTE results as noted; MITCHELL recommended to r/o IE. CALEB Worsening leukocytosis Back pain r/o diskitis Suggestion: 1. Repeat BC x2. MITCHELL r/o IE (pacer wire IE). trend CBC 2. If feasible MRI lumbosacral spine (of note his pacemaker is MRI compatible) 3. Repeat blood cultures x 2. 4. Echocardiogram, followed by 5. Currently treated w/ iv Vancomycin; goal trough 15-20; add iv gentamicin (as patient developed CALEB adjust gentamicin and vancomycin dose per pharmacy). Would hold on adding Rifampin for now until repeat BC negative. 5. Obtain random vancomycin level.
--- NOTE | 2016-11-09 20:47 | PN- Cardiology ---
Subjective Subjective: Clinically about the same. Positive blood culture results noted. Persistent fever noted. Objective Vital Signs and I&Os Vital Signs Date Time Temp Pulse Resp B/P B/P Pulse O2 O2 Flow FiO2 Mean Ox Delivery Rate 11/09 1750 99.1 11/09 1722 99.1 11/09 1713 97 Nasal 2.0L Cannula 11/09 1702 102.9 97 24 100/62 91 11/09 1623 102.1 11/09 1622 100/58 11/09 1104 99.1 82 20 110/72 92 BIPAP 11/09 0858 102.4 82 20 122/78 11/09 0857 102.4 82 20 122/78 11/09 0857 102.4 82 20 122/78 11/09 0800 Nasal 2.0L Cannula 11/09 0534 102.4 11/09 0343 82 96 11/09 0256 99.3 11/09 0034 90 100 11/09 0024 103.0 86 20 122/78 97 BIPAP 11/09 0015 103.2 11/09 0000 103.2 11/09 0000 BIPAP 30% 11/08 2258 94 95 11/08 2108 126 11/08 210 103.2 11/08 2056 103.2 Intake & Output 11/09 1600 11/09 0800 11/09 0000 11/08 1600 11/08 0800 11/08 0000 Intake Total 1450 240 750 100 720 Output Total 25 500 600 975 Balance 1425 240 750 -500 -500 -255 Intake, IV 650 0 500 Intake, Oral 800 240 250 100 720 Number 1 0 0 Bowel Movements Output, Urine 25 500 600 975 Patient 374 lb 374 lb Weight Weight Bed scale Bed scale Measurement Method Current Medications: Current Medications Sig/Ji Start time Last Medication Dose Route Stop Time Status Admin Acetaminophen 1,000 MG ONCE ONE 11/09 0005 DC 11/09 N/A 1 UNIT IV 11/09 0019 0015 Acetaminophen 650 MG Q6 PRN 11/08 1449 AC 11/09 PO 1623 Albuterol Sulfate 3 ML Q4P PRN 10/27 1945 AC INH Aspirin Buffered 81 MG DAILY 10/28 1000 AC 11/09 PO 0857 Atorvastatin Calcium 20 MG 1700 10/27 1700 AC 11/09 PO 1622 Collagenase 1 SAM DAILY 11/03 1000 AC 11/09 TOP 0858 Docusate Sodium 100 MG BID 11/02 1000 AC 11/09 PO 0856 Furosemide 80 MG DAILY 11/08 1000 LA 11/08 PO 0940 Glycerin/Mineral Oil 1 SAM TID PRN 11/03 0800 11/04 TOP 1658 Guaifenesin 600 MG Q12 11/08 1140 11/09 PO 0858 Hydralazine HCl 25 MG TID 10/27 1600 11/09 PO 1622 Hydromorphone HCl 1 MG ONCE ONE 11/09 0830 DC 11/09 IV 11/09 0831 0957 Ketorolac 30 MG ONCE ONE 11/09 0545 LA 11/09 Tromethamine IV 11/09 0546 0545 Levetiracetam 1,000 MG BID 11/02 1144 11/09 PO 0857 Lisinopril 40 MG DAILY 10/27 1600 11/09 PO 0858 Metoprolol Tartrate 25 MG BID 11/01 2200 11/09 PO 0857 Naloxone HCl 0.4 MG ONCE PRN 11/08 1615 IV Nitroglycerin 0.4 MG 11/03 2200 11/08 TOP 2108 Patient Medication 1 ED .STK-MED ONE 11/09 1416 LA Teaching ED 11/09 1417 Polyethylene Glycol 17 GM DAILY 11/05 1507 11/09 PO 0856 Sodium Chloride 1,000 ML Q8H 11/09 1930 IV Sodium Chloride 1,000 ML Q10H 11/09 0900 LA 11/09 IV 11/09 1859 0924 Tramadol HCl 50 MG Q8P PRN 11/08 1615 PO Vancomycin HCl 2,000 MG Q12 11/08 1144 11/09 Sodium Chloride 500 ML IV 0924 Results Last 48 Hrs of Labs/Mics: Laboratory Tests 11/09/16 1615: Anion Gap 11, Estimated GFR 44 L, BUN/Creatinine Ratio 27.5 H 11/09/16 0630: Anion Gap 12, Estimated GFR 51 L, BUN/Creatinine Ratio 25.7 H, CBC w Diff NO MAN DIFF REQ, RBC 4.85, MCV 94.0, MCH 30.7, RDW 17.3 H, MPV 10.0, Gran % 87.5 H, Lymphocytes % 2.9 L, Monocytes % 9.5 H, Eosinophils % 0, Basophils % 0.1, Absolute Granulocytes 14.1 H, Absolute Lymphocytes 0.5 L, Absolute Monocytes 1.5 H, Absolute Eosinophils 0, Absolute Basophils 0, PUBS MCHC 32.7 L 11/08/16 1055: Anion Gap 11, Estimated GFR > 60, BUN/Creatinine Ratio 23.0, CBC w Diff MAN DIFF ORDERED, RBC 4.68 L, MCV 93.0, MCH 30.2, RDW 16.8 H, MPV 9.6, Gran % 85.7 H, Lymphocytes % 3.4 L, Monocytes % 10.6 H, Eosinophils % 0.3, Basophils % 0 L, Absolute Granulocytes 16.1 H, Absolute Lymphocytes 0.6 L, Absolute Monocytes 2.0 H, Absolute Eosinophils 0, Absolute Basophils 0, Platelet Estimate VERIFIED BY SMEAR, Basophilic Stippling SLIGHT, Anisocytosis 1+, PUBS MCHC 32.5 L Assessment/Plan Assessment/Plan Assessment: 1. MRSA bacteremia with persistent fever 1. History of chronic HFpEF 2. Minimally elevated troponin 3. Obstructive sleep apnea 4. Obesity 5. Venous insufficiency with lower extremity edema 6. Hypertension 7. Hyperlipidemia Recommendations: -continue as per the medical service. -Await further input from ID -Continue antibiotics. -I discussed the case with Dr. [place] at [place]. He agrees that, in view of the MRSA bacteremia, the [facility] best course would be to consider early removal of the recently implanted PPM rather than waiting. Transfer plans pending. Continue telemetry? No
== END 2016-11-09 21:50 | disposition short-term general hospital (02) | DRG 242 ==
LOC: ENRESERVTM → ENRESERVDT → ERH 10:08 → 1NO 13:18 → CRI 13:18 → ERHI 13:18 → EDBEDREQ 13:48 → CRI 15:11 → 1NO 11-06 16:54
PROVIDERS: Dermatology; Internal Medicine; Ophthalmology; Physician Assistant Medical; Student in an Organized Health Care Education/Training Program; ADMIT Internal Medicine Pulmonary Disease
PROC: 5A09457 Assistance with Respiratory Ventilation, 24-96 Consecutive Hours, Continuous Positive Airway Pressure (ICD-10-PCS; 2016-10-27)
PROC: 0JH606Z Insertion of Pacemaker, Dual Chamber into Chest Subcutaneous Tissue and Fascia, Open Approach (ICD-10-PCS; principal; 2016-11-01)
PROC: 02HK3JZ Insertion of Pacemaker Lead into Right Ventricle, Percutaneous Approach (ICD-10-PCS; principal; 2016-11-01)
PROC: 02H63JZ Insertion of Pacemaker Lead into Right Atrium, Percutaneous Approach (ICD-10-PCS; principal; 2016-11-01)
DX: I11.0 Hypertensive heart disease with heart failure (principal); J96.22 Acute and chronic respiratory failure with hypercapnia; J96.21 Acute and chronic respiratory failure with hypoxia; A41.02 Sepsis due to Methicillin resistant Staphylococcus aureus; L89.310 Pressure ulcer of right buttock, unstageable; N17.9 Acute kidney failure, unspecified; E87.2 Acidosis; R56.9 Unspecified convulsions; J44.9 Chronic obstructive pulmonary disease, unspecified; E66.2 Morbid (severe) obesity with alveolar hypoventilation; Z68.43 Body mass index [BMI] 50.0-59.9, adult; L97.929 Non-pressure chronic ulcer of unspecified part of left lower leg with unspecified severity; L97.919 Non-pressure chronic ulcer of unspecified part of right lower leg with unspecified severity; I50.33 Acute on chronic diastolic (congestive) heart failure; I44.1 Atrioventricular block, second degree; E78.5 Hyperlipidemia, unspecified; I87.2 Venous insufficiency (chronic) (peripheral); Z87.891 Personal history of nicotine dependence; M54.9 Dorsalgia, unspecified
CPT/HCPCS: 1NP; 87184; CCU; 36415; 81003; 82436; 87040; 87070; 87086; 87147; 93005; 93010; 93306; 96374; 97110-GO; 97116-GO; 97162-GP; 97165-GO; 97530-GO; 99291; C1785; C1898; J0131; J0461; J0690; J0713; J1100; J1644; J1885; J1940; J1953; J2270; J2405; J3370; J7040